=== PATIENT | male | born 1945 | race Caucasian/White ===

== ENCOUNTER 2017-01-03 10:45 | Emergency (ER) | payer OTHER, MEDICARE ==
[2017-01-03 11:08] VITALS: RESP 18
[2017-01-03] MEDS ORDERED: HYDROmorphone 1 MG/ML 1 ML SYRINGE IVP STA ×3 (11:10→15:12)
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
[2017-01-03] MEDS ORDERED: ceFAZolin 1,000 MG in DEXTROSE/WATER 1 50ML.BAG IVPB STA (11:49)
[2017-01-03 11:52] LABS: Basophils # (A) 0.1 k/uL (0-0.2); Basophils % (A) 1 %; CHCM 33.5; Eosinophils # (A) 0.3 k/uL (0-0.7); Eosinophils % (A) 4 %; HCT 44.5 % (39.0-53.0); HDW 2.83; HGB 15.3 gm/dL (13.0-17.5); Luc # (Auto) 0.11; Luc % (Auto) 1; Lymphocytes # (A) 1.7 k/uL (1.0-4.8); Lymphocytes % (A) 18 %; MCH 30.9 pg (25.0-35.0); MCHC 34.3 g/dL (31.0-37.0); MCV 89.9 fL (80.0-100.0); Mean Platelet Volume 7.4; Monocytes # (A) 0.4 k/uL (0-1.0); Monocytes % (A) 4 %; Neutrophils # (A) 6.6 k/uL (1.3-7.7); Neutrophils % (A) 72 %; RBC 4.95 m/uL (4.30-5.90); RDW 13.5 % (11.5-15.5); WBC 9.2 k/uL (3.8-10.6); WBC (Perox) 9.28
[2017-01-03 12:01] LABS: INR 1.9 (<1.1); Partial Thromboplastin Time 24.1 sec (22.0-30.0); Prothrombin Time 18.7 sec (9.0-12.0)
[2017-01-03 12:02] LABS: ALT 26 U/L (21-72); AST 26 U/L (17-59); Alkaline Phosphatase 34 U/L (38-126); Anion Gap 8 mmol/L; Blood Urea Nitrogen 21 mg/dL (9-20); Calcium 8.9 mg/dL (8.4-10.2); Carbon Dioxide 22 mmol/L (22-30); Chloride 108 mmol/L (98-107); Glucose 164 mg/dL (74-99); Non-African American GFR(MDRD) >60 (>60 ml/min/1.73 sqM); Potassium 4.8 mmol/L (3.5-5.1); Sodium 138 mmol/L (137-145); Total Bilirubin 0.8 mg/dL (0.2-1.3); Total Protein 6.8 g/dL (6.3-8.2)
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
[2017-01-03] MEDS ORDERED: PHYTONADIONE 2 MG in SODIUM CHLORIDE 0.9% 50 ML IVPB STA (12:57)
--- NOTE | 2017-01-03 13:00 | XR ---
EXAMINATION TYPE: XR ankle limited LT DATE OF EXAM: 01/03/2017 COMPARISON: NONE HISTORY: Pain FINDINGS: Two views of the ankle demonstrate the ankle mortise to be narrowed particularly posteriorly on the l ateral view likely post arthritic. Soft tissue ossification and vascular calcifications are seen. Shabbir caneal spur noted. IMPRESSION: 1. No definite acute fracture if symptoms persist follow-up exam 10-14 days. 2. Marked narrowing of the posterior margin of the ankle mortise on the lateral view likely post arth ritic.
--- NOTE | 2017-01-03 13:01 | XR ---
EXAMINATION TYPE: XR tibia fibula LT DATE OF EXAM: 01/03/2017 COMPARISON: NONE HISTORY: Pain TECHNIQUE: Two views are submitted. FINDINGS: The osseous structures are intact. Postsurgical change involving the knee. IMPRESSION: 1. No acute osseous abnormality.
--- NOTE | 2017-01-03 13:03 | XR ---
EXAMINATION TYPE: XR knee limited RT DATE OF EXAM: 01/03/2017 COMPARISON: NONE HISTORY: Pain TECHNIQUE: One view is submitted. FINDINGS: Comminuted displaced fracture of the distal femur noted. Only one view submitted therefore assessment for articular extension limited. Marked arthropathy of the knee joint suspected. IMPRESSION: 1. Limited exam demonstrates a displaced comminuted fracture of the distal femur. Due to the single v iew submitted articular extension is limited for assessment.
--- NOTE | 2017-01-03 13:04 | XR ---
EXAMINATION TYPE: XR femur RT DATE OF EXAM: 01/03/2017 CLINICAL HISTORY: Pain TECHNIQUE: Two views of the right femur are obtained. COMPARISON: None FINDINGS: There is comminuted displaced fracture of the distal femur. Assessment articular extension is limited but not excluded. IMPRESSION: 1. Comminuted displaced fracture distal femur. Articular extension not excluded.
--- NOTE | 2017-01-03 13:05 | XR ---
EXAMINATION TYPE: XR chest 1V portable DATE OF EXAM: 01/03/2017 COMPARISON: NONE HISTORY: Pain TECHNIQUE: Single frontal view of the chest is obtained. FINDINGS: There is no focal air space opacity, pleural effusion, or pneumothorax seen. The cardiac silhouette size is within normal limits. The osseous structures are intact. Mediastinum is somewhat prominent as is the heart. IMPRESSION: 1. Widening of the mediastinum may be related to technique. CT of the chest is suggested for confirma tion.
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
[2017-01-03] MEDS ORDERED: RX INFO: IV CONTRAST WAS GIVEN 1 EACH MISC MISCELLANE PRN (13:13)
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
[2017-01-03 15:24] VITALS: BP 146/77; PULSE 99; TEMP 99.4
== END 2017-01-03 15:40 | disposition other institution (70) ==
LOC: EC 10:45
DX: S72.491B Other fracture of lower end of right femur, initial encounter for open fracture type I or II (principal); S82.042A Displaced comminuted fracture of left patella, initial encounter for closed fracture; S81.011A Laceration without foreign body, right knee, initial encounter; S90.512A Abrasion, left ankle, initial encounter; V03.10XA Pedestrian on foot injured in collision with car, pick-up truck or van in traffic accident, initial encounter; D68.2 Hereditary deficiency of other clotting factors; E11.9 Type 2 diabetes mellitus without complications; E78.5 Hyperlipidemia, unspecified; M19.90 Unspecified osteoarthritis, unspecified site; Z79.01 Long term (current) use of anticoagulants; Z79.84 Long term (current) use of oral hypoglycemic drugs; Z79.899 Other long term (current) drug therapy; Z86.711 Personal history of pulmonary embolism; Z86.718 Personal history of other venous thrombosis and embolism; Z88.7 Allergy status to serum and vaccine
CPT/HCPCS: 36415; 86900; 86901; 80053; 85025; 85610; 85730; 86850; 71010; 72170; 73552; 73590; 73560; 73600; 72125; 70450; 75635; 29505; 99285; 12001; 96365; 96375; 96376; 96367; P9059; J3430; Q9967; J1170; J0690

== ENCOUNTER 2017-02-24 09:57 | Emergency (ER) | payer OTHER, MEDICARE ==
[2017-02-24] MEDS ORDERED: KETOROLAC 30 MG/ML 1 ML VIAL IM STA (10:18)
[2017-02-24] MEDS ORDERED: DIAZEPAM 5 MG/ML 2 ML SYRINGE IM ONE (10:18)
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
[2017-02-24 12:15] VITALS: BP 150/77; PULSE 81; RESP 18; TEMP 97.9
== END 2017-02-24 12:13 | disposition home or self-care (01) ==
LOC: EC 09:57
DX: M53.3 Sacrococcygeal disorders, not elsewhere classified (principal); M62.838 Other muscle spasm; M25.552 Pain in left hip; E78.5 Hyperlipidemia, unspecified; E11.9 Type 2 diabetes mellitus without complications; Z79.01 Long term (current) use of anticoagulants; Z79.84 Long term (current) use of oral hypoglycemic drugs; Z79.899 Other long term (current) drug therapy; Z88.7 Allergy status to serum and vaccine; Z86.711 Personal history of pulmonary embolism
CPT/HCPCS: 99283; 96372 ×2; J3360; J1885

== ENCOUNTER → 2017-10-15 | Outpatient (CLI) | payer MEDICARE ==
[2017-10-15 07:23] LABS: Basophils # (A) 0.1 k/uL (0-0.2); Basophils % (A) 1 %; Eosinophils # (A) 0.4 k/uL (0-0.7); Eosinophils % (A) 5 %; HCT 49.7 % (39.0-53.0); Lymphocytes # (A) 2.1 k/uL (1.0-4.8); Lymphocytes % (A) 26 %; MCH 28.6 pg (25.0-35.0); MCHC 32.2 g/dL (31.0-37.0); MCV 88.8 fL (80.0-100.0); Mean Platelet Volume 7.2; Monocytes # (A) 0.5 k/uL (0-1.0); Monocytes % (A) 6 %; Neutrophils % (A) 62 %; Platelet Count 207 k/uL (150-450); RBC 5.59 m/uL (4.30-5.90); RDW 14.2 % (11.5-15.5); WBC 8.1 k/uL (3.8-10.6)
[2017-10-15 07:44] LABS: Calcium 9.8 mg/dL (8.4-10.2); Total Bilirubin 0.5 mg/dL (0.2-1.3); Total Protein 7.2 g/dL (6.3-8.2)
== END | disposition home or self-care (01) ==
LOC: LABWHC1 06:40
PROVIDERS: ATTEND Internal Medicine
DX: I74.9 Embolism and thrombosis of unspecified artery (principal); E78.1 Pure hyperglyceridemia; N18.6 End stage renal disease; Z79.899 Other long term (current) drug therapy
CPT/HCPCS: 36415; 80053; 80061; 85025

== ENCOUNTER → 2018-01-08 | Outpatient (CLI) | payer MEDICARE ==
[2018-01-08 07:29] LABS: Basophils # (A) 0.1 k/uL (0-0.2); Basophils % (A) 1 %; Eosinophils # (A) 0.3 k/uL (0-0.7); Eosinophils % (A) 4 %; HCT 49.4 % (39.0-53.0); HGB 15.3 gm/dL (13.0-17.5); Lymphocytes # (A) 2.3 k/uL (1.0-4.8); Lymphocytes % (A) 36 %; MCH 28.3 pg (25.0-35.0); MCHC 30.9 g/dL (31.0-37.0); MCV 91.5 fL (80.0-100.0); Mean Platelet Volume 6.8; Monocytes # (A) 0.5 k/uL (0-1.0); Monocytes % (A) 7 %; Neutrophils # (A) 3.3 k/uL (1.3-7.7); Neutrophils % (A) 50 %; Platelet Count 193 k/uL (150-450); RDW 13.7 % (11.5-15.5); WBC 6.5 k/uL (3.8-10.6)
[2018-01-08 07:33] LABS: INR 3.7 (<1.2); Prothrombin Time 33.1 sec (9.0-12.0)
[2018-01-08 07:59] LABS: Albumin 4.1 g/dL (3.5-5.0); Calcium 9.7 mg/dL (8.4-10.2); Total Bilirubin 0.5 mg/dL (0.2-1.3); Total Protein 7.1 g/dL (6.3-8.2)
== END | disposition home or self-care (01) ==
LOC: LABWHC1 06:32
PROVIDERS: ATTEND Internal Medicine
DX: N18.9 Chronic kidney disease, unspecified (principal); Z86.718 Personal history of other venous thrombosis and embolism
CPT/HCPCS: 36415; 80053; 85025; 85610

== ENCOUNTER → 2018-09-09 | Outpatient (CLI) | payer MEDICARE ==
--- NOTE | 2018-09-09 13:35 | ECHOF ---
Referral Reason:R06.02 shortness of Breath MEASUREMENTS -------- HEIGHT: 177.8 cm WEIGHT: 131.5 kg BP: RVIDd: 2.9 cm (< 3.3) IVSd: 1.1 cm (0.6 - 1.1) LVIDd: 5.3 cm (3.9 - 5.3) LVPWd: 1.1 cm (0.6 - 1.1) IVSs: 1.3 cm LVIDs: 2.8 cm LVPWs: 1.2 cm LAESV Index (A-L): 19.64 ml/m Ao Diam: 4.1 cm (2.0 - 3.7) AV Cusp: 1.9 cm (1.5 - 2.6) MV E Sree: 0.76 m/s MV DecT: 268 ms MV A Sree: 0.80 m/s MV E/A Ratio: 0.94 RAP: 5.00 mmHg RVSP: 9.43 mmHg FINDINGS -------- Sinus rhythm. This was a technically difficult study with suboptimal views. The left ventricular size is normal. There is borderline concentric left ventricular hypertrophy. Overall left ventricular systolic function is normal with, an EF between 55 - 60 %. The right ventricle is normal in size. Normal LA size by volume 22+/-6 ml/m2. The right atrial size is normal. 3 ml of Lumason was utilized for enhancement of images. There is mild aortic valve sclerosis. There is no evidence of aortic regurgitation. There is no e vidence of aortic stenosis. Mild mitral annular calcification present. Mild mitral regurgitation is present. Trace tricuspid regurgitation present. Right ventricular systolic pressure is normal at < 35 mmHg. The right ventricular systolic pressure, as measured by Doppler, is 9.43mmHg. The pulmonic valve was not well visualized. The aortic root is mildy dilated, up to 4.0 cm. Normal inferior vena cava with normal inspiratory collapse consistent with estimated right atrial pre ssure of 5 mmHg. There is a trivial pericardial effusion present. CONCLUSIONS -------- 1. Sinus rhythm. 2. This was a technically difficult study with suboptimal views. 3. The left ventricular size is normal. 4. There is borderline concentric left ventricular hypertrophy. 5. Overall left ventricular systolic function is normal with, an EF between 55 - 60 %. 6. Normal LA size by volume 22+/-6 ml/m2. 7. 3 ml of Lumason was utilized for enhancement of images. 8. There is mild aortic valve sclerosis. 9. Mild mitral annular calcification present. 10. Mild mitral regurgitation is present. 11. Trace tricuspid regurgitation present. 12. Right ventricular systolic pressure is normal at < 35 mmHg. 13. The pulmonic valve was not well visualized. 14. The aortic root is mildy dilated, up to 4.0 cm. 15. There is a trivial pericardial effusion present. [facility] TECHNICIAN: Boris Tavares RDCS
== END ==
LOC: RADECHMAIN 07:48
PROVIDERS: ATTEND Internal Medicine
DX: I34.0 Nonrheumatic mitral (valve) insufficiency (principal); I35.8 Other nonrheumatic aortic valve disorders
CPT/HCPCS: C8929; Q9950; 93306

== ENCOUNTER → 2019-02-02 | Outpatient (CLI) | payer MEDICARE ==
[2019-02-02 10:47] LABS: Basophils # (A) 0.1 k/uL (0-0.2); Basophils % (A) 0 %; Eosinophils # (A) 0.1 k/uL (0-0.7); Eosinophils % (A) 0 %; HCT 34.2 % (39.0-53.0); HGB 10.9 gm/dL (13.0-17.5); Hypochromasia Slight; Lymphocytes # (A) 1.3 k/uL (1.0-4.8); Lymphocytes % (A) 8 %; MCH 28.8 pg (25.0-35.0); MCHC 31.7 g/dL (31.0-37.0); MCV 90.6 fL (80.0-100.0); Mean Platelet Volume 7.1; Monocytes # (A) 0.9 k/uL (0-1.0); Monocytes % (A) 6 %; Neutrophils # (A) 13.3 k/uL (1.3-7.7); Neutrophils % (A) 84 %; Platelet Count 479 k/uL (150-450); RBC 3.77 m/uL (4.30-5.90); WBC 15.7 k/uL (3.8-10.6)
[2019-02-02 11:38] LABS: Erythrocyte Sedimentation Rate 63 mm/hr (0-15)
[2019-02-02 16:08] LABS: African American GFR (CKD) 85.6 (60.0-200.0); Anion Gap 9.5 mmol/L (4.00-12.00); C Reactive Protein 11.9 mg/dL (0.0-0.8); Calcium 8.3 mg/dL (8.7-10.3); Carbon Dioxide 23.5 mmol/L (21.6-31.8); Potassium 4.5 mmol/L (3.5-5.5)
== END | disposition home or self-care (01) ==
LOC: LABWHC1 09:56
PROVIDERS: ATTEND Internal Medicine
DX: R50.9 Fever, unspecified (principal); M54.9 Dorsalgia, unspecified; Z96.659 Presence of unspecified artificial knee joint
CPT/HCPCS: 36415; 80048; 85025; 85652; 86140; 87040

== ENCOUNTER 2019-02-21 20:41 | Emergency (ER) | payer MEDICARE ==
[2019-02-21] MEDS ORDERED: ACETAMINOPHEN TAB 325 MG TAB PO STA (21:15)
--- NOTE | 2019-02-21 21:31 | ED ---
SOB HPI - General Chief Complaint: Shortness of Breath Stated Complaint: Cough, SOB Time Seen by Provider: 02/21/19 21:14 Source: patient Mode of arrival: wheelchair Limitations: no limitations - History of Present Illness Initial Comments: This patient is 73-year-old man who presents to be evaluated for shortness of breath and a cough productive of some whitish sputum that is been going on since Friday. Patient states that when things were not improving he decided he should be evaluated here. The patient had initially attributed this to "picking up a virus at physical therapy" he is taking physical therapy after having an orthopedic surgery on his right leg. He states that he had some hardware removed due to broken screws. The patient is denying significant leg pain stating that his leg is feeling much better following surgery area he denies any increase in leg swelling. He is not having chest pain. He has had history of a PE following a previous hernia surgery and states that this does not feel the same to him. He states he is maintaining his Coumadin. MD Complaint: shortness of breath, cough Onset/Timin -: days(s) Severity scale (1-10): 0 Improves With: nothing Worsens With: nothing Known History Of: other (Previous PE) Associated Symptoms: fever, cough Treatments Prior to Arrival: none - Related Data Home Oxygen Therapy: No Home Medications Medication Instructions Recorded Confirmed Fenofibrate Nanocrystallized 145 mg PO DAILY 04/13/14 02/21/19 [Tricor] Warfarin [Coumadin] 5 mg PO MOFR 04/13/14 02/21/19 Warfarin [Coumadin] 2.5 mg PO SUTUWETHSA 01/03/17 02/21/19 glipiZIDE XL [Glucotrol Xl] 5 mg PO DAILY 01/03/17 02/21/19 sitaGLIPtin PHOS/metFORMIN HCL 1 tab PO DAILY 01/03/17 02/21/19 [Janumet Xr 100-1,000 mg Tablet] Benzonatate [Tessalon Perles] 200 mg PO TID PRN 02/21/19 02/21/19 Calcium Carbonate/Vitamin D3 2 tab PO BID 02/21/19 02/21/19 [Calcium 600-Vit D3 500 Softgel] HYDROcodone/APAP 10-325MG [[place] 1 tab PO Q4H PRN 02/21/19 02/21/19 10-325] Previous Rx's Medication Instructions Recorded Ciprofloxacin HCl [Cipro] 500 mg PO Q12HR #14 tablet 02/22/19 Allergies Allergy/AdvReac Type Severity Reaction Status Date / Time Tetanus Vaccines and Toxoid Allergy Unknown Verified 02/21/19 21:11 [Tetanus Vaccines & Toxoid] Childhood Review of Systems ROS Statement: Those systems with pertinent positive or pertinent negative responses have been documented in the HPI. ROS Other: All systems not noted in ROS Statement are negative. Constitutional: Reports: fever. Denies: chills, weakness Respiratory: Reports: cough, dyspnea. 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 DRY PATCHES AT TIMES ON SCALP. DEG.JOINT DISEASE-HANDS,KNEES,BACK History of Any Multi-Drug Resistant Organisms: None Reported Past Surgical History: Hernia Repair, Orthopedic Surgery Additional Past Surgical History / Comment(s): ORCHIECTOMY & RT ING HERNIA REPAIR 2000-PT LATER DEVELOPED PE 02/2001. ARTHROSCOPIC HAZEL. KNEES, right femur january 04 2017 Past Anesthesia/Blood Transfusion Reactions: No Reported Reaction Past Psychological History: No Psychological Hx Reported Smoking Status: Never smoker Past Alcohol Use History: Daily, Occasional Past Drug Use History: None Reported - Past Family History Brother(s) Family Medical History: Cancer Additional Family Medical History / Comment(s): ESOPHAGUS CA General Exam Limitations: no limitations General appearance: alert, in no apparent distress Head exam: Present: atraumatic, normocephalic Eye exam: Present: normal appearance. Absent: scleral icterus, conjunctival injection ENT exam: Present: normal oropharynx Respiratory exam: Present: normal lung sounds bilaterally. Absent: respiratory distress, wheezes, rales, rhonchi, stridor Cardiovascular Exam: Present: normal rhythm, tachycardia (Rate 108 at my exam), normal heart sounds. Absent: systolic murmur, diastolic murmur, rubs, gallop GI/Abdominal exam: Present: soft, hernia (Small umbilical hernia which is not tender). Absent: tenderness, guarding, rebound, rigid, mass Extremities exam: Present: normal inspection, normal capillary refill, other (The patient's right leg surgical site appears well-healed, clean dry and intact. There is no erythema or warmth. No tenderness.). Absent: pedal edema, calf tenderness Back exam: Present: normal inspection. Absent: CVA tenderness (R), CVA t enderness (L) Neurological exam: Present: alert Skin exam: Present: warm, dry, intact, normal color. Absent: rash Course Vital Signs 02/21/19 02/21/19 02/22/19 20:46 23:24 00:50 Temperature 102.7 F H 98.8 F 97.9 F Pulse Rate 109 H 105 H 92 Respiratory 24 20 18 Rate Blood Pressure 146/69 139/56 129/64 O2 Sat by Pulse 95 96 98 Oximetry 02/22/19 01:55 Temperature 97.9 F Pulse Rate 92 Respiratory 18 Rate Blood Pressure 130/68 O2 Sat by Pulse 100 Oximetry Medical Decision Making - Medical Decision Making Patient is 73-year-old man presenting for cough and some mild dyspnea. He is found to have fever. Started on antibiotics forward appears to be urinary tract infection and suspect prostatitis. Discussed admission with the hospitalist on- call, and when I went and discussed this with patient, he states he is feeling world better. I didn't take the nasal cannula oxygen away and he was still fee ling well with no dyspnea. He wants to go home and try outpatient course medication. I did discuss close follow-up as well as return parameters. - Lab Data Result diagrams: 02/21/19 21:11 02/21/19 21:11 Lab Results 02/21/19 02/21/19 02/21/19 Range/Units 21:11 21:11 21:11 WBC 13.3 H (3.8-10.6) k/uL RBC 4.12 L (4.30-5.90) m/uL Hgb 11.5 L (13.0-17.5) gm/dL Hct 36.5 L (39.0-53.0) % MCV 88.6 (80.0-100.0) fL MCH 27.9 (25.0-35.0) pg MCHC 31.6 (31.0-37.0) g/dL RDW 13.9 (11.5-15.5) % Plt Count 363 (150-450) k/uL Neutrophils % 84 % Lymphocytes % 9 % Monocytes % 4 % Eosinophils % 1 % Basophils % 1 % Neutrophils # 11.3 H (1.3-7.7) k/uL Lymphocytes # 1.2 (1.0-4.8) k/uL Monocytes # 0.6 (0-1.0) k/uL Eosinophils # 0.2 (0-0.7) k/uL Basophils # 0.1 (0-0.2) k/uL Hypochromasia Slight PT (9.0-12.0) sec INR (<1.2) APTT (22.0-30.0) sec D-Dimer (<0.60) mg/L FEU Sodium 135 L (137-145) mmol/L Potassium 4.5 (3.5-5.1) mmol/L Chloride 98 (98-107) mmol/L Carbon Dioxide 25 (22-30) mmol/L Anion Gap 12 mmol/L BUN 19 (9-20) mg/dL Creatinine 0.96 (0.66-1.25) mg/dL Est GFR (CKD-EPI)AfAm >90 (>60 ml/min/1.73 sqM) Est GFR (CKD-EPI)NonAf 78 (>60 ml/min/1.73 sqM) Glucose 272 H (74-99) mg/dL Plasma Lactic Acid Ab 2.0 (0.7-2.0) mmol/L Calcium 8.6 (8.4-10.2) mg/dL Total Bilirubin 0.4 (0.2-1.3) mg/dL AST 62 H (17-59) U/L ALT 67 (21-72) U/L Alkaline Phosphatase 84 (38-126) U/L Troponin I (0.000-0.034) ng/mL Total Protein 6.2 L (6.3-8.2) g/dL Albumin 2.9 L (3.5-5.0) g/dL Urine Color Urine Appearance (Clear) Urine pH (5.0-8.0) Ur Specific [place] (1.001-1.035) Urine Protein (Negative) Urine Glucose (UA) (Negative) Urine Ketones (Negative) Urine Blood (Negative) Urine Nitrite (Negative) Urine Bilirubin (Negative) Urine Urobilinogen (<2.0) mg/dL Ur Leukocyte Esterase (Negative) Urine RBC (0-5) /hpf Urine WBC (0-5) /hpf Ur Squamous Epith Cells (0-4) /hpf Urine Bacteria (None) /hpf Urine Mucus (None) /hpf 02/21/19 02/21/19 02/21/19 Range/Units 21:11 21:11 22:45 WBC (3.8-10.6) k/uL RBC (4.30-5.90) m/uL Hgb (13.0-17.5) gm/dL Hct (39.0-53.0) % MCV (80.0-100.0) fL MCH (25.0-35.0) pg MCHC (31.0-37.0) g/dL RDW (11.5-15.5) % Plt Count (150-450) k/uL Neutrophils % % Lymphocytes % % Monocytes % % Eosinophils % % Basophils % % Neutrophils # (1.3-7.7) k/uL Lymphocytes # (1.0-4.8) k/uL Monocytes # (0-1.0) k/uL Eosinophils # (0-0.7) k/uL Basophils # (0-0.2) k/uL Hypochromasia PT 30.1 H (9.0-12.0) sec INR 3.1 H (<1.2) APTT 41.5 H (22.0-30.0) sec D-Dimer 3.07 H (<0.60) mg/L FEU Sodium (137-145) mmol/L Potassium (3.5-5.1) mmol/L Chloride (98-107) mmol/L Carbon Dioxide (22-30) mmol/L Anion Gap mmol/L BUN (9-20) mg/dL Creatinine (0.66-1.25) mg/dL Est GFR (CKD-EPI)AfAm (>60 ml/min/1.73 sqM) Est GFR (CKD-EPI)NonAf (>60 ml/min/1.73 sqM) Glucose (74-99) mg/dL Plasma Lactic Acid Ab (0.7-2.0) mmol/L Calcium (8.4-10.2) mg/dL Total Bilirubin (0.2-1.3) mg/dL AST (17-59) U/L ALT (21-72) U/L Alkaline Phosphatase (38-126) U/L Troponin I <0.012 (0.000-0.034) ng/mL Total Protein (6.3-8.2) g/dL Albumin (3.5-5.0) g/dL Urine Color Yellow Urine Appearance Cloudy (Clear) Urine pH 5.5 (5.0-8.0) Ur Specific [place] 1.020 (1.001-1.035) Urine Protein 1+ H (Negative) Urine Glucose (UA) Trace H (Negative) Urine Ketones Negative (Negative) Urine Blood Large H (Negative) Urine Nitrite Negative (Negative) Urine Bilirubin Negative (Negative) Urine Urobilinogen 2.0 (<2.0) mg/dL Ur Leukocyte Esterase Moderate H (Negative) Urine RBC >182 H (0-5) /hpf Urine WBC 45 H (0-5) /hpf Ur Squamous Epith Cells <1 (0-4) /hpf Urine Bacteria Rare H (None) /hpf Urine Mucus Rare H (None) /hpf - EKG Data -: EKG Interpreted by [facility] EKG shows normal: sinus rhythm, axis (Normal), intervals (Normal), QRS complexes (Normal), ST-T waves (Normal) Rate: tachycardia (Rate 109 bpm) Interpretation: normal EKG Disposition Clinical Impression: Urinary tract infection Disposition: HOME SELF-CARE Condition: Fair Instructions (If sedation given, give patient instructions): Urinary Tract Infection in Men (ED) Prescriptions: Ciprofloxacin HCl [Cipro] 500 mg PO Q12HR #14 tablet Is patient prescribed a controlled substance at d/c from ED?: No Referrals: Tamara Ho MD [Primary Care Provider] - 1-2 days
[2019-02-21 21:58] LABS: Basophils # (A) 0.1 k/uL (0-0.2); Basophils % (A) 1 %; Eosinophils # (A) 0.2 k/uL (0-0.7); Eosinophils % (A) 1 %; HCT 36.5 % (39.0-53.0); HGB 11.5 gm/dL (13.0-17.5); Hypochromasia Slight; Lymphocytes # (A) 1.2 k/uL (1.0-4.8); Lymphocytes % (A) 9 %; MCH 27.9 pg (25.0-35.0); MCHC 31.6 g/dL (31.0-37.0); MCV 88.6 fL (80.0-100.0); Mean Platelet Volume 7.3; Monocytes # (A) 0.6 k/uL (0-1.0); Monocytes % (A) 4 %; Neutrophils # (A) 11.3 k/uL (1.3-7.7); Neutrophils % (A) 84 %; Platelet Count 363 k/uL (150-450); RBC 4.12 m/uL (4.30-5.90); RDW 13.9 % (11.5-15.5); WBC 13.3 k/uL (3.8-10.6)
--- NOTE | 2019-02-21 22:00 | XR ---
EXAMINATION TYPE: XR chest 2V DATE OF EXAM: 02/21/2019 COMPARISON: 02/02/2019 HISTORY: Cough TECHNIQUE: Frontal and lateral views of the chest are obtained. FINDINGS: Heart and mediastinum are normal. Lungs are clear. Diaphragm is normal. Bony thorax appear s normal. There is minor spurring in the thoracic spine. IMPRESSION: No active cardiopulmonary disease. Normal heart. No change.
[2019-02-21 22:08] LABS: ALT 67 U/L (21-72); AST 62 U/L (17-59); African American GFR (CKD) >90 (>60 ml/min/1.73 sqM); Albumin 2.9 g/dL (3.5-5.0); Alkaline Phosphatase 84 U/L (38-126); Anion Gap 12 mmol/L; Blood Urea Nitrogen 19 mg/dL (9-20); Calcium 8.6 mg/dL (8.4-10.2); Carbon Dioxide 25 mmol/L (22-30); Chloride 98 mmol/L (98-107); Glucose 272 mg/dL (74-99); Potassium 4.5 mmol/L (3.5-5.1); Sodium 135 mmol/L (137-145); Total Bilirubin 0.4 mg/dL (0.2-1.3); Total Protein 6.2 g/dL (6.3-8.2)
[2019-02-21 22:15] LABS: INR 3.1 (<1.2); Partial Thromboplastin Time 41.5 sec (22.0-30.0); Prothrombin Time 30.1 sec (9.0-12.0)
[2019-02-21 22:17] LABS: D-Dimer 3.07 mg/L FEU (<0.60)
[2019-02-21 23:18] LABS: Appearance,Urine Cloudy (Clear); Bacteria,Urine Rare /hpf; Bilirubin,Urine Negative (Negative); Blood,Urine Large (Negative); Color,Urine Yellow; Glucose,Urine (UA) Trace (Negative); Ketones,Urine Negative (Negative); Leukocyte Esterase,Urine Moderate (Negative); Mucus,Urine Rare /hpf; Nitrite,Urine Negative (Negative); PH, Urine 5.5 (5.0-8.0); Protein,Urine 1+ (Negative); RBC,Urine >182 /hpf (0-5); Squamous Epithelial Cell,Urine <1 /hpf (0-4); WBC,Urine 45 /hpf (0-5)
[2019-02-21] MEDS ORDERED: LEVOFLOXACIN 750MG-D5W PMX 750 MG in DEXTROSE/WATER 1 150ML.BAG IVPB STA (23:25)
--- NOTE | 2019-02-21 23:31 | CT ---
EXAM: CT Angiography Chest With Intravenous Contrast CLINICAL HISTORY: ITS.REASON CT Reason: cough TECHNIQUE: Axial computed tomographic angiography images of the chest with intravenous contrast using pulmonary embolism protocol. CTDI is 19 mGy and DLP is 721 mGy-cm. This CT exam was performed using one or more of the following dose reduction techniques: automated exposure control, adjustment of the mA and/or kV according to patient size, and/or use of iterative reconstruction technique. MIP reconstructed images were created and reviewed. COMPARISON: 01/03/17 CT chest FINDINGS: Pulmonary arteries: No filling defects. Aorta: No thoracic aortic aneurysm. Lungs: No mass. No consolidation. Pleural space: No pneumothorax. No significant effusion. Heart: No cardiomegaly. No pericardial effusion. Bones/joints: No acute fracture or dislocation. Evidence of DISH. Soft tissues: Subcentimeter calcified lesion in the right thyroid gland. Multiple stones in the left kidney. Multiple bilateral renal cysts. Lymph nodes: No enlarged lymph nodes. IMPRESSION: No acute intrathoracic findings. Multiple stones in the left kidney. Subcentimeter calcified lesion in the right thyroid gland.
[2019-02-22 01:29] VITALS: PULSE 92; RESP 18; TEMP 97.9
[2019-02-22 01:57] VITALS: BP 130/68
== END 2019-02-22 01:58 | disposition home or self-care (01) ==
LOC: EC 20:41
DX: N39.0 Urinary tract infection, site not specified (principal); E11.9 Type 2 diabetes mellitus without complications; E78.5 Hyperlipidemia, unspecified; Z79.01 Long term (current) use of anticoagulants; Z79.84 Long term (current) use of oral hypoglycemic drugs; Z79.899 Other long term (current) drug therapy; Z88.7 Allergy status to serum and vaccine; Z86.711 Personal history of pulmonary embolism
CPT/HCPCS: 36415; 93005; 85379; 80053; 83605; 84484; 85025; 85610; 85730; 81001; 87040; 87086; 71046; 71275; 99285; 96365; 96366; J1956; Q9967

== ENCOUNTER 2019-04-13 15:16 | Inpatient (IN) | payer MEDICARE ==
[2019-04-13 16:28] LABS: Anisocytosis Slight; Basophils # (A) 0.1 k/uL (0-0.2); Basophils % (A) 0 %; Eosinophils # (A) 0.1 k/uL (0-0.7); Eosinophils % (A) 1 %; HCT 36.6 % (39.0-53.0); HGB 11.5 gm/dL (13.0-17.5); Hypochromasia Marked; Lymphocytes # (A) 1.7 k/uL (1.0-4.8); Lymphocytes % (A) 10 %; MCH 26.6 pg (25.0-35.0); MCHC 31.4 g/dL (31.0-37.0); MCV 84.7 fL (80.0-100.0); Mean Platelet Volume 6.1; Monocytes # (A) 0.9 k/uL (0-1.0); Monocytes % (A) 5 %; Neutrophils # (A) 13.8 k/uL (1.3-7.7); Neutrophils % (A) 83 %; Platelet Count 358 k/uL (150-450); RBC 4.33 m/uL (4.30-5.90); RDW 16.5 % (11.5-15.5); WBC 16.7 k/uL (3.8-10.6)
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
[2019-04-13 16:39] LABS: ALT 43 U/L (21-72); AST 36 U/L (17-59); African American GFR (CKD) >90 (>60 ml/min/1.73 sqM); Albumin 2.8 g/dL (3.5-5.0); Alkaline Phosphatase 68 U/L (38-126); Anion Gap 10 mmol/L; Blood Urea Nitrogen 19 mg/dL (9-20); Calcium 9.1 mg/dL (8.4-10.2); Carbon Dioxide 23 mmol/L (22-30); Chloride 103 mmol/L (98-107); Glucose 216 mg/dL (74-99); Magnesium 1.5 mg/dL (1.6-2.3); Potassium 4.2 mmol/L (3.5-5.1); Sodium 136 mmol/L (137-145); Total Bilirubin 0.8 mg/dL (0.2-1.3); Total Protein 6.4 g/dL (6.3-8.2)
[2019-04-13 16:47] LABS: INR 1.6 (<1.2); Partial Thromboplastin Time 30.5 sec (22.0-30.0); Prothrombin Time 16.2 sec (9.0-12.0)
[2019-04-13 17:12] LABS: D-Dimer 1.16 mg/L FEU (<0.60)
--- NOTE | 2019-04-13 17:25 | XR ---
EXAMINATION: XR chest 2V DATE AND TIME: 04/13/2019 4:54 PM CLINICAL INDICATION: PHH; difficulty breathing TECHNIQUE: Departmental protocol COMPARISON: 02/21/2019 FINDINGS: The overlying soft tissues are prominent. The lungs appear clear. The pleural spaces are negative. The cardiac silhouette is not enlarged. The skeletal structures and soft tissues are negative for acute findings. IMPRESSION: NO ACUTE PROCESS.
[2019-04-13] MEDS ORDERED: IPRATROPIUM-ALBUTEROL 3 ML NEB INHALATION STA (17:38)
[2019-04-13] MEDS: MAGNESIUM SULFATE-D5W PMX 1 GM in DEXTROSE/WATER 1 100ML.BAG IVPB SCH ×2 (18:14→19:27)
--- NOTE | 2019-04-13 19:57 | CT ---
EXAMINATION TYPE: CT chest angio for PE DATE OF EXAM: 04/13/2019 COMPARISON: Prior chest CT 02/21/2019 HISTORY: Persistent cough. Dyspnea CT DLP: 812.6 mGycm Automated exposure control for dose reduction was used. CONTRAST: CT Chest for pulmonary embolism performed with with IV Contrast, patient injected with 100 mL of Isov ue 370. Three-dimensional reconstructions performed on an alternate workstation. FINDINGS: LUNGS: The lungs are grossly clear, there is no concerning parenchymal mass or nodule identified. T here is no pleural effusion or pneumothorax seen. The tracheobronchial tree is patent. MEDIASTINUM: There is satisfactory enhancement of the central pulmonary artery and its branches, ther e is no CT evidence for pulmonary embolism. Segmental arteries are not optimally enhanced however the re is no evident embolus. There are no greater than 1 cm hilar or mediastinal lymph nodes. Extensiv e coronary artery calcification is again noted. No pericardial effusion is seen. Prominence of pulm onary artery again seen. There are prominent epicardial fat pads. AORTA: Aneurysmal dilation of the ascending aorta measuring 2.9 cm. OTHER: Multiple bilateral cortical cysts are again noted within the kidneys with some perinephric in flammatory changes suspected, there are nonobstructive calculi present within the left kidney. There are changes of gynecomastia. Increased attenuation noted at what is likely the dependent portion of t he gallbladder, gallbladder is contracted, consider chronic cholecystitis IMPRESSION: No evident pulmonary embolism. Coronary artery disease, correlate for possible pulmonary artery hyper tension. Indeterminate inflammatory changes suspected in the retroperitoneum is again noted. Nonobstr uctive renal calculi, correlate for possible urinary tract infection. Probable cholelithiasis, possib le chronic cholecystitis.
[2019-04-13] MEDS ORDERED: BENZONATATE 100 MG CAP PO PRN (21:48)
[2019-04-13] MEDS: HYDROcodone/APAP 10-325MG 1 EACH TAB PO PRN (22:02)
[2019-04-14 07:18] LABS: Glucose,Whole Blood 224 mg/dL (75-99)
[2019-04-14] MEDS: IPRATROPIUM-ALBUTEROL 3 ML NEB INHALATION SCH ×4 (07:51→20:22)
[2019-04-14] MEDS: metFORMIN 500 MG TAB PO SCH (08:22)
[2019-04-14] MEDS: LINAGLIPTIN 5 MG TABLET PO SCH (08:23)
[2019-04-14 10:16] LABS: Amorphous Sediment,Urine Few /hpf; Appearance,Urine Cloudy (Clear); Bacteria,Urine Occasional /hpf; Bilirubin,Urine Negative (Negative); Blood,Urine Small (Negative); Color,Urine Yellow; Glucose,Urine (UA) Negative (Negative); Ketones,Urine Negative (Negative); Leukocyte Esterase,Urine Large (Negative); Mucus,Urine Rare /hpf; Nitrite,Urine Positive (Negative); PH, Urine 5.5 (5.0-8.0); Protein,Urine Trace (Negative); RBC,Urine 11 /hpf (0-5); Specific Gravity,Urine 1.037 (1.001-1.035); Urobilinogen,Urine <2.0 mg/dL (<2.0)
--- NOTE | 2019-04-14 10:57 | P.CRDCN ---
History of Present Illness Consult date: 04/14/19 Requesting physician: Andreas Peace Consult reason: shortness of breath Chief complaint: Shortness of breath and cough History of present illness: This is a 73-year-old gentleman with history of diabetes, prior blood clot in the lung several years ago for which he takes Coumadin, he follows with Dr. Vic holbrook as his primary care physician. Denies any hypertension, nonsmoker, he presents to the hospital with symptoms of persistent cough with associated shortness of breath. Patient states that he has a hockey cough, that worsens when he lies flat, occasionally he coughed something up which is clear in color, but usually it is a dry cough. He gets quite short of breath when he lies flat as well. He had been started on an antibiotic as an outpatient with no relief of symptoms. Came to the hospital for further evaluation and treatment. Chest x-ray on presentation here did not reveal any acute process. CTA of the chest was performed which did not reveal any evidence of a pulmonary embolism. Possible pulmonary hypertension noted. EKG showed a sinus tachycardia with PACs and occasional PVC. Nonspecific ST-T wave changes. Blood pressure on arrival here 119/60 with a heart rate of 107, 92% on room air. Blood pressure this morning 140/60, heart rate 120, 94% on room air. White blood cell count 16.7, hemoglobin 11.5, platelet count 358. D-dimer 1.16. Sodium 136, potassium 4.2, BUN 19 and creatinine 0.7. Magnesium level I.5. Troponins are negative 2. BNP level 3400. Positive UTI. At the time of my examination this morning, patient continues to have a persistent hockey cough, continues to feel short of breath lying in bed. 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 DRY PATCHES AT TIMES ON SCALP. DEG.JOINT DISEASE-HANDS,KNEES,BACK History of Any Multi-Drug Resistant Organisms: None Reported Past Surgical History: Hernia Repair, Orthopedic Surgery Additional Past Surgical History / Comment(s): ORCHIECTOMY & RT ING HERNIA REPAIR 2000-PT LATER DEVELOPED PE 02/2001. ARTHROSCOPIC HAZEL. KNEES, right femur january 04 2017 Past Anesthesia/Blood Transfusion Reactions: No Reported Reaction Past Psychological History: No Psychological Hx Reported Smoking Status: Never smoker Past Alcohol Use History: Daily, Occasional Past Drug Use History: None Reported - Past Family History Brother(s) Family Medical History: Cancer Additional Family Medical History / Comment(s): ESOPHAGUS CA Medications and Allergies Home Medications Medication Instructions Recorded Confirmed Type Warfarin [Coumadin] 2.5 mg PO HS 01/03/17 04/13/19 History glipiZIDE XL [Glucotrol Xl] 5 mg PO DAILY 01/03/17 04/13/19 History sitaGLIPtin PHOS/metFORMIN HCL 1 tab PO DAILY 01/03/17 04/13/19 History [Janumet Xr 100-1,000 mg Tablet] Benzonatate [Tessalon Perles] 200 mg PO TID PRN 02/21/19 04/13/19 History HYDROcodone/APAP 10-325MG [[place] 1 tab PO Q4H PRN 02/21/19 04/13/19 History 10-325] Allergies Allergy/AdvReac Type Severity Reaction Status Date / Time Tetanus Vaccines and Toxoid Allergy Unknown Verified 04/13/19 16:23 [Tetanus Vaccines & Toxoid] Childhood Physical Exam Vitals: Vital Signs Temp Pulse Pulse Resp BP BP Pulse Ox 04/14/19 08:25 98.3 F 123 H 16 141/63 94 L 04/14/19 08:05 94 04/14/19 07:54 92 04/13/19 22:05 100 18 121/69 98 04/13/19 20:25 100 18 138/78 97 04/13/19 18:33 101 H 04/13/19 18:25 101 H 04/13/19 18:24 101 H 20 142/90 98 04/13/19 15:21 98.2 F 107 H 24 119/62 92 L Intake and Output 04/13/19 04/14/19 04/14/19 22:59 06:59 14:59 Intake Total 240 Output Total 500 200 Balance -500 -200 240 Intake: Oral 240 Output: Urine 500 200 Other: Weight 125.645 kg 123.3 kg 123.3 kg PHYSICAL EXAMINATION: GENERAL: 73-year-old gentleman in no acute distress at the time of my examination HEENT: Head is atraumatic, normocephalic. Pupils equal, round. Sclera anicteric. Conjunctiva are clear. Mucous membranes of the mouth are moist. Ne ck is supple. There is elevated jugular venous pressure. No carotid bruit is heard. HEART EXAMINATION: Heart S1, S2 normal. No murmur or gallop heard. CHEST EXAMINATION: Lungs reveal diminished air entry bilaterally with some fine expiratory wheezing ABDOMEN: Soft, obese, nontender. Bowel sounds are heard. No organomegaly noted. EXTREMITIES: 2+ peripheral pulses with trace evidence of peripheral edema and no calf tenderness noted. NEUROLOGIC patient is awake, alert and oriented 3 . . Results 04/13/19 16:05 04/13/19 16:05 Cardiac Enzymes 04/13/19 04/13/19 04/13/19 Range/Units 16:05 16:05 22:05 AST 36 (17-59) U/L Troponin I <0.012 <0.012 (0.000-0.034) ng/mL Coagulation 04/13/19 Range/Units 16:05 PT 16.2 H (9.0-12.0) sec APTT 30.5 H (22.0-30.0) sec CBC 04/13/19 Range/Units 16:05 WBC 16.7 H (3.8-10.6) k/uL RBC 4.33 (4.30-5.90) m/uL Hgb 11.5 L (13.0-17.5) gm/dL Hct 36.6 L (39.0-53.0) % Plt Count 358 (150-450) k/uL Comprehensive Metabolic Panel 04/13/19 Range/Units 16:05 Sodium 136 L (137-145) mmol/L Potassium 4.2 (3.5-5.1) mmol/L Chloride 103 (98-107) mmol/L Carbon Dioxide 23 (22-30) mmol/L BUN 19 (9-20) mg/dL Creatinine 0.73 (0.66-1.25) mg/dL Glucose 216 H (74-99) mg/dL Calcium 9.1 (8.4-10.2) mg/dL AST 36 (17-59) U/L ALT 43 (21-72) U/L Alkaline Phosphatase 68 (38-126) U/L Total Protein 6.4 (6.3-8.2) g/dL Albumin 2.8 L (3.5-5.0) g/dL Current Medications Generic Name Dose Route Start Last Admin Trade Name Freq PRN Reason Stop Dose Admin Hydrocodone Bitart/Acetaminophen 1 each 04/13/19 21:48 04/13/19 22:02 [place] 10 PO 1 each Q4H PRN Administration Pain Albuterol/Ipratropium 3 ml 04/14/19 08:00 04/14/19 07:51 Duoneb 0.5 Mg-3 Mg/3 Ml Soln INHALATION 3 ml RT-QID KULDEEP Administration Benzonatate 200 mg 04/13/19 21:48 Tessalon Perles PO TID PRN Cough Glipizide 2.5 mg 04/14/19 07:30 04/14/19 09:48 Glucotrol PO 2.5 mg AC-BID KULDEEP Administration Linagliptin 5 mg 04/14/19 07:30 04/14/19 08:23 Tradjenta PO 5 mg W/BRKFST KULDEEP Administration Metformin HCl 1,000 mg 04/14/19 07:30 04/14/19 08:22 Glucophage PO 1,000 mg W/BRKFST KULDEEP Administration Warfarin Sodium 2.5 mg 04/14/19 21:00 Coumadin PO HS KULDEEP Intake and Output 04/13/19 04/14/19 04/14/19 22:59 06:59 14:59 Intake Total 240 Output Total 500 200 Balance -500 -200 240 Intake: Oral 240 Output: Urine 500 200 Other: Weight 125.645 kg 123.3 kg 123.3 kg Patient Weight 04/15/19 06:59 Weight 123.3 kg 04/13/19 16:05 04/13/19 16:05 EKG Interpretations (text) EKG shows a sinus tachycardia with occasional PVC and PACs, nonspecific ST-T wave changes Assessment and Plan Plan: Assessment and plan #1 symptoms of persistent cough with associated shortness of breath, PND and or thopnea, clinical picture suggestive of acute congestive heart failure. Patient had an echocardiogram with Doppler study performed in August which revealed a normal left ventricular systolic function. Diastolic acute on chronic. BNP level 3400. #2 diabetes #3 history of pulmonary embolism several years ago for which the patient takes Coumadin, INR on admission 1.6. CTA of the chest negative for pulmonary embolism. #4 hypomagnesemia #5 elevated white blood cell count, no associated fever. Could be secondary to UTI. Plan We will repeat an echocardiogram with Doppler study. We will start the patient on some IV Lasix, we will also start the patient on a statin being that he is an adult with diabetes, and initiate a small dose of beta adrian and SULMA inhibitor. Replace magnesium. Monitor intake and output along with daily weights and daily lytes BUN and creatinine. Further recommendations to follow. DNP note has been reviewed, I agree with a documented findings and plan of care. Patient was seen and examined.
[2019-04-14] MEDS: FUROSEMIDE 10 MG/ML 4 ML VIAL IV SCH ×2 (11:09→20:47)
[2019-04-14] MEDS: METOPROLOL SUCCINATE (ER) 25 MG TAB.ER.24H PO SCH (11:09)
--- NOTE | 2019-04-14 11:55 | P.HPIM ---
History of Present Illness 74-year-old pleasant gentleman came in with compensative 6 weeks of cough. Patient used the 3 courses of azithromycin without any significant improvement patient does have some redness in the back of the throat patient was complaining of orthopnea and no paroxysmal nocturnal dyspnea orthopnea started 6-7 weeks ago patient is morbidly obese. Patient has elevated BNP but doesn't have any JVD or pedal edema. Patient had a normal ejection fraction the past patient is undergoing a repeat echocardiogram. Patient was apparently started on Lasix which I believe is appropriate but the possibility of CHF either diastolic or systolic dysfunction with acute exacerbation is low. Patient appears to have either cough variant asthma or gastroesophageal reflux disease. I'll start him on empiric proton pump inhibitor as well as albuterol and see if he has any symptomatic improvement from that. Patient was using Tessalon Perles for cough without any significant improvement. CAT scan of the head and chest was opted which did not show any PE or any malignancy. Pulmonology was consult as well. Patient denied any other exertional shortness of breath his main complaint is persistent cough. Patient is not on an SULMA inhibitor. Review of Systems REVIEW OF SYSTEMS: CONSTITUTIONAL: No fever, no malaise, no fatigue. HEENT: No recent visual problems or hearing problems. Denied any sore throat. CARDIOVASCULAR: No chest pain, orthopnea, PND, no palpitations, no syncope. PULMONARY: no hemoptysis. GASTROINTESTINAL: No diarrhea, no nausea, no vomiting, no abdominal pain. NEUROLOGICAL: No headaches, no weakness, no numbness. HEMATOLOGICAL: Denies any bleeding or petechiae. GENITOURINARY: Denies any burning micturition, frequency, or urgency. MUSCULOSKELETAL/RHEUMATOLOGICAL: Denies any joint pain, swelling, or any muscle pain. ENDOCRINE: Denies any polyuria or polydipsia. The rest of the 14-point review of systems is negative. 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 DRY PATCHES AT TIMES ON SCALP. DEG.JOINT DISEASE-HANDS,KNEES,BACK History of Any Multi-Drug Resistant Organisms: None Reported Past Surgical History: Hernia Repair, Orthopedic Surgery Additional Past Surgical History / Comment(s): ORCHIECTOMY & RT ING HERNIA REPAIR 2000-PT LATER DEVELOPED PE 02/2001. ARTHROSCOPIC HAZEL. KNEES, right femur january 04 2017 Past Anesthesia/Blood Transfusion Reactions: No Reported Reaction Past Psychological History: No Psychological Hx Reported Smoking Status: Never smoker Past Alcohol Use History: Daily, Occasional Past Drug Use History: None Reported - Past Family History Brother(s) Family Medical History: Cancer Additional Family Medical History / Comment(s): ESOPHAGUS CA Medications and Allergies Home Medications Medication Instructions Recorded Confirmed Type Warfarin [Coumadin] 2.5 mg PO HS 01/03/17 04/13/19 History glipiZIDE XL [Glucotrol Xl] 5 mg PO DAILY 01/03/17 04/13/19 History sitaGLIPtin PHOS/metFORMIN HCL 1 tab PO DAILY 01/03/17 04/13/19 History [Janumet Xr 100-1,000 mg Tablet] Benzonatate [Tessalon Perles] 200 mg PO TID PRN 02/21/19 04/13/19 History HYDROcodone/APAP 10-325MG [[place] 1 tab PO Q4H PRN 02/21/19 04/13/19 History 10-325] Allergies Allergy/AdvReac Type Severity Reaction Status Date / Time Tetanus Vaccines and Toxoid Allergy Unknown Verified 04/13/19 16:23 [Tetanus Vaccines & Toxoid] Childhood Physical Exam Vitals: Vital Signs Temp Pulse Pulse Resp BP BP Pulse Ox 04/14/19 08:25 98.3 F 123 H 16 141/63 94 L 04/14/19 08:05 94 04/14/19 07:54 92 04/13/19 22:05 100 18 121/69 98 04/13/19 20:25 100 18 138/78 97 04/13/19 18:33 101 H 04/13/19 18:25 101 H 04/13/19 18:24 101 H 20 142/90 98 04/13/19 15:21 98.2 F 107 H 24 119/62 92 L Intake and Output 04/13/19 04/14/19 04/14/19 22:59 06:59 14:59 Intake Total 240 Output Total 500 200 Balance -500 -200 240 Intake: Oral 240 Output: Urine 500 200 Other: Weight 125.645 kg 123.3 kg 123.3 kg PHYSICAL EXAMINATION: GENERAL: The patient is alert and oriented x3, not in any acute distress. Obese HEENT: Pupils are round and equally reacting to light. EOMI. No scleral icterus. No conjunctival pallor. Normocephalic, atraumatic. He does have pharyngeal erythema. No thyromegaly. CARDIOVASCULAR: S1 and S2 present. No murmurs, rubs, or gallops. PULMONARY: Chest is clear to auscultation, no wheezing or crackles. ABDOMEN: Soft, nontender, nondistended, normoactive bowel sounds. No palpable organomegaly. MUSCULOSKELETAL: No joint swelling or deformity. EXTREMITIES: No cyanosis, clubbing, or pedal edema. NEUROLOGICAL: Gross neurological examination did not reveal any focal deficits. SKIN: No rashes. Results CBC & Chem 7: 04/13/19 16:05 04/13/19 16:05 Labs: Abnormal Lab Results - Last 24 Hours (Table) 04/13/19 04/13/19 04/13/19 Range/Units 16:05 16:05 16:05 WBC 16.7 H (3.8-10.6) k/uL Hgb 11.5 L (13.0-17.5) gm/dL Hct 36.6 L (39.0-53.0) % RDW 16.5 H (11.5-15.5) % Neutrophils # 13.8 H (1.3-7.7) k/uL PT 16.2 H (9.0-12.0) sec INR 1.6 H (<1.2) APTT 30.5 H (22.0-30.0) sec D-Dimer 1.16 H (<0.60) mg/L FEU Sodium 136 L (137-145) mmol/L Glucose 216 H (74-99) mg/dL POC Glucose (mg/dL) (75-99) mg/dL Magnesium 1.5 L (1.6-2.3) mg/dL Albumin 2.8 L (3.5-5.0) g/dL Ur Specific [place] (1.001-1.035) Urine Protein (Negative) Urine Blood (Negative) Ur Leukocyte Esterase (Negative) Urine RBC (0-5) /hpf Urine WBC (0-5) /hpf Amorphous Sediment (None) /hpf Urine Bacteria (None) /hpf Urine Mucus (None) /hpf 04/14/19 04/14/19 Range/Units 06:30 08:12 WBC (3.8-10.6) k/uL Hgb (13.0-17.5) gm/dL Hct (39.0-53.0) % RDW (11.5-15.5) % Neutrophils # (1.3-7.7) k/uL PT (9.0-12.0) sec INR (<1.2) APTT (22.0-30.0) sec D-Dimer (<0.60) mg/L FEU Sodium (137-145) mmol/L Glucose (74-99) mg/dL POC Glucose (mg/dL) 224 H (75-99) mg/dL Magnesium (1.6-2.3) mg/dL Albumin (3.5-5.0) g/dL Ur Specific [place] 1.037 H (1.001-1.035) Urine Protein Trace H (Negative) Urine Blood Small H (Negative) Ur Leukocyte Esterase Large H (Negative) Urine RBC 11 H (0-5) /hpf Urine WBC 84 H (0-5) /hpf Amorphous Sediment Few H (None) /hpf Urine Bacteria Occasional H (None) /hpf Urine Mucus Rare H (None) /hpf Assessment and Plan Plan: -Chronic cough: Possibility of gastroesophageal reflux disease, patient is on Protonix coffee didn't asthma is a possibility. Patient doesn't appear to have any bacterial bronchitis will not require any more antibiotics doesn't have any pneumonia at this time. Possibly of CHF is low. -shortness of breath: I believe it's secondary to his obesity and the restrictive lung disease. Patient does have elevated BNP but doesn't have any JVD or pedal edema patient had a normal ejection fraction my suspicion of CHF is low but the it's reasonable to use a day of IV Lasix and see if there is any symptomatic improvement. Repeat echocardiogram is being obtained. -Diabetes mellitus2: Patient will be resumed on his home regimen will be any to monitor the blood sugars. -Hyperlipidemia -History of PE for which patient is on Coumadin and do not have any INR available we'll obtain INR. -DVT prophylaxis early ambulation
[2019-04-14 12:05] LABS: Glucose,Whole Blood 326 mg/dL (75-99)
[2019-04-14] MEDS: PANTOPRAZOLE 40 MG/10 ML VIAL IVP SCH ×2 (12:31→20:47)
[2019-04-14 13:09] LABS: Prothrombin Time 19.9 sec (9.0-12.0)
[2019-04-14] MEDS: MAGNESIUM SULFATE-D5W PMX 1 GM in DEXTROSE/WATER 1 100ML.BAG IVPB SCH ×2 (14:28→15:55)
--- NOTE | 2019-04-14 15:44 | P.CNPUL ---
History of Present Illness Consult date: 04/14/19 Reason for consult: cough Chief complaint: Cough History of present illness: This is a 73-year-old white male patient of Dr. Ho who is coming in for evaluation of persistant cough of 7-8 week duration. Denies any fever or chills, he states he has been treated on an outpatient basis by Dr. Ho, and he was in Dr. Ho's office last week on 04/05/2019 and according to the office notes his cough was resolving he was given antibiotics and prednisone, and an inhaler. CT of the chest on 02/21/2019 showed no acute intrathoracic findings, multiple stones in the left kidney, and a subcentimeter calcified lesion in the right thyroid gland. On 04/13/2019 patient presented to the emergency department, complaining of persistent cough, some mild dyspnea with exertion, and weakness. He states his coughing is mostly at night, it is dry and hacking, more so time it's nonproductive, denied any chest pain, denied any fever or chills, denied any phlegm production. No hemoptysis. Patient states he cannot lay down because of coughing. Also reports some lower extremity swelling, patient did have a right knee surgery in November 2018, he underwent rehabilitation. Patient has a remote history of smoking which is currently in remission for the past 22 years, he did smoke up to 2 packs a day for 35 years prior to that, he did have outpatient PFT with Dr. Marquez in the clinic, and was found to have some mild obstructive airway disease with FEV1 of 81%. Other medical history includes osteoarthritis, hypertriglyceridemia, diabetes mellitus, history of UTIs, cough variant asthma, history of pulmonary embolism, history of factor II deficiency, patient follows with Dr. Palacio, and he takes Coumadin for anticoagulation. Admission chest x-ray showed no acute process. White blood cell count was 16.7, hemoglobin was 11.5, INR was 1.6, d-dimer was 1.16, sodium was 136, the rest of electrolytes and renal profile were within normal limits, proBNP was elevated at 3004 100, troponins were negative 3. CT angios chest showed no evident pulmonary embolism, coronary artery disease, possible pulmonary arterial hypertension, nonobstructive renal calculi, and probable cholelithiasis and possible chronic cholecystitis. EKG showed sinus tachycardia, with PVCs, no acute ischemic changes. Previous echocardiogram from August 2018 showed normal left ventricular systolic function. he has been started on IV diuretics, nebulized bronchodilators, he is being evaluated by cardiology. An were asked to see the patient in regards to persistent cough Review of Systems All systems: negative Constitutional: Reports fatigue, Reports weakness, Denies chills, Denies fever Eyes: denies blurred vision, denies pain Ears, nose, mouth and throat: Denies headache, Denies sore throat Cardiovascular: Reports decreased exercise tolerance, Reports dyspnea on exertion, Reports edema, Reports orthopnea, Denies chest pain, Denies shortness of breath Respiratory: Reports cough, Reports dyspnea Gastrointestinal: Denies abdominal pain, Denies diarrhea, Denies nausea, Denies vomiting Musculoskeletal: Denies myalgias Integumentary: Denies pruritus, Denies rash Neurological: Denies numbness, Denies weakness Psychiatric: Denies anxiety, Denies depression Endocrine: Denies fatigue, Denies weight change Past Medical History Past Medical History: Blood Disorder, Diabetes Mellitus, Hyperlipidemia, Osteoarthritis (OA), Pulmonary Embolus (PE), Skin Disorder Additional Past Medical History / Comment(s): HX PE 03/13/2001- HAS PROTHOMBIN GENE MUTATION-FACTOR 2 WAYNE-SEES NERI ORDOÑEZ FOR THIS. DRY PATCHES AT TIMES ON SCALP. DEG.JOINT DISEASE-HANDS,KNEES,BACK History of Any Multi-Drug Resistant Organisms: None Reported Past Surgical History: Hernia Repair, Orthopedic Surgery Additional Past Surgical History / Comment(s): ORCHIECTOMY & RT ING HERNIA REPAIR 2000-PT LATER DEVELOPED PE 02/2001. ARTHROSCOPIC HAZEL. KNEES, right femur january 04 2017 Past Anesthesia/Blood Transfusion Reactions: No Reported Reaction Past Psychological History: No Psychological Hx Reported Smoking Status: Never smoker Past Alcohol Use History: Daily, Occasional Past Drug Use History: None Reported - Past Family History Brother(s) Family Medical History: Cancer Additional Family Medical History / Comment(s): ESOPHAGUS CA Medications and Allergies Home Medications Medication Instructions Recorded Confirmed Type Warfarin [Coumadin] 2.5 mg PO HS 01/03/17 04/13/19 History glipiZIDE XL [Glucotrol Xl] 5 mg PO DAILY 01/03/17 04/13/19 History sitaGLIPtin PHOS/metFORMIN HCL 1 tab PO DAILY 01/03/17 04/13/19 History [Janumet Xr 100-1,000 mg Tablet] Benzonatate [Tessalon Perles] 200 mg PO TID PRN 02/21/19 04/13/19 History HYDROcodone/APAP 10-325MG [[place] 1 tab PO Q4H PRN 02/21/19 04/13/19 History 10-325] Allergies Allergy/AdvReac Type Severity Reaction Status Date / Time Tetanus Vaccines and Toxoid Allergy Unknown Verified 04/13/19 16:23 [Tetanus Vaccines & Toxoid] Childhood Physical Exam Vitals: Vital Signs Temp Pulse Pulse Resp BP BP Pulse Ox 04/14/19 12:38 98.1 F 110 H 16 153/88 95 04/14/19 08:25 98.3 F 123 H 16 141/63 94 L 04/14/19 08:05 94 04/14/19 07:54 92 04/13/19 22:05 100 18 121/69 98 04/13/19 20:25 100 18 138/78 97 04/13/19 18:33 101 H 04/13/19 18:25 101 H 04/13/19 18:24 101 H 20 142/90 98 04/13/19 15:21 98.2 F 107 H 24 119/62 92 L Intake and Output 04/14/19 04/14/19 04/14/19 06:59 14:59 22:59 Intake Total 600 Output Total 200 Balance -200 600 Intake: Oral 600 Output: Urine 200 Other: # Voids 3 Weight 123.3 kg 123.3 kg GENERAL EXAM: Alert, slightly irritable, 73-year-old white male, sitting up on the edge of the bed, with a room air pulse ox of 95% comfortable in no apparent distress. HEAD: Normocephalic/atraumatic. EYES: Normal reaction of pupils, equal size. Conjunctiva pink, sclera white. NOSE: Clear with pink turbinates. THROAT: No erythema or exudates. NECK: No masses, no JVD, no thyroid enlargement, no adenopathy. CHEST: No chest wall deformity. Symmetrical expansion. LUNGS: Equal air entry with no crackles, wheeze, rhonchi or dullness. Diminished breath sounds bilaterally, CVS: Regular rate and rhythm, normal S1 and S2, no gallops, no murmurs, no rubs ABDOMEN: Soft, nontender. No hepatosplenomegaly, normal bowel sounds, no guarding or rigidity. EXTREMITIES: No clubbing, 1+ lower extremity edema, no cyanosis, 2+ pulses and upper and lower extremities. MUSCULOSKELETAL: Muscle strength and tone normal. SPINE: No scoliosis or deformity SKIN: No rashes CENTRAL NERVOUS SYSTEM: Alert and oriented -3. No focal deficits, tone is normal in all 4 extremities. PSYCHIATRIC: Alert and oriented -3. Appropriate affect. Intact judgment and insight. Results - Laboratory Findings CBC and BMP: 04/13/19 16:05 04/13/19 16:05 PT/INR, D-dimer PT 19.9 sec (9.0-12.0) H 04/14/19 12:27 INR 2.0 (<1.2) H 04/14/19 12:27 D-Dimer 1.16 mg/L FEU (<0.60) H 04/13/19 16:05 Abnormal lab findings: Abnormal Labs 04/13/19 04/13/19 04/13/19 16:05 16:05 16:05 WBC 16.7 H Hgb 11.5 L Hct 36.6 L RDW 16.5 H Neutrophils # 13.8 H PT 16.2 H INR 1.6 H APTT 30.5 H D-Dimer 1.16 H Sodium 136 L Glucose 216 H POC Glucose (mg/dL) Magnesium 1.5 L Albumin 2.8 L Ur Specific [place] Urine Protein Urine Blood Ur Leukocyte Esterase Urine RBC Urine WBC Amorphous Sediment Urine Bacteria Urine Mucus 04/14/19 04/14/19 04/14/19 06:30 08:12 11:45 WBC Hgb Hct RDW Neutrophils # PT INR APTT D-Dimer Sodium Glucose POC Glucose (mg/dL) 224 H 326 H Magnesium Albumin Ur Specific [place] 1.037 H Urine Protein Trace H Urine Blood Small H Ur Leukocyte Esterase Large H Urine RBC 11 H Urine WBC 84 H Amorphous Sediment Few H Urine Bacteria Occasional H Urine Mucus Rare H 04/14/19 12:27 WBC Hgb Hct RDW Neutrophils # PT 19.9 H INR 2.0 H APTT D-Dimer Sodium Glucose POC Glucose (mg/dL) Magnesium Albumin Ur Specific [place] Urine Protein Urine Blood Ur Leukocyte Esterase Urine RBC Urine WBC Amorphous Sediment Urine Bacteria Urine Mucus - Diagnostic Findings Chest x-ray: report reviewed, image reviewed CT scan - chest: report reviewed, image reviewed Assessment and Plan Plan: Assessment: #1. Persistent cough, possibly related to exacerbation of cough variant asthma/COPD and acute exacerbation of diastolic CHF #2. Acute exacerbation of diastolic congestive heart failure #3. Mildly elevated d-dimer, CT chest without any evidence of pulmonary embo lism #4. Acute urinary tract infection #5. History of prothrombin gene mutation, factor II deficiency, on chronic anticoagulation with Coumadin #6. Diabetes mellitus type 2 #7. Prior history of pulmonary embolism #8. Degenerative arthritis of bilateral knees, status post recent right knee surgery #9. Previous history of urinary tract infection Plan: Continue with nebulized bronchodilators, will start IV steroids, we'll make the Tessalon Perles scheduled [id number], patient is being diuresis, monitor daily labs and renal profile. We'll add Rocephin for urinary tract infection, urine culture is pending, no fever or chills, repeat echocardiogram is pending. I performed a history & physical examination of the patient and discussed their management with my nurse practitioner, Lexis Mclean. I reviewed the nurse practitioner's note and agree with the documented findings and plan of care. Lung sounds are positive for diminished breath sounds. The findings and the impression was discussed with the patient. I attest to the documentation by the nurse practitioner. Time with Patient: Greater than 30
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
[2019-04-14 16:57] LABS: Glucose,Whole Blood 279 mg/dL (75-99)
[2019-04-14] MEDS: methylPREDNISolone SOD SUCCI 40 MG/ML 1 ML VIAL IV SCH (17:20)
[2019-04-14] MEDS: BENZONATATE 100 MG CAP PO SCH (17:20)
--- NOTE | 2019-04-14 18:56 | ECHOF ---
Referral Reason:chf MEASUREMENTS -------- HEIGHT: 177.8 cm WEIGHT: 122.5 kg BP: 141/63 IVSd: 1.5 cm (0.6 - 1.1) LVIDd: 4.8 cm (3.9 - 5.3) LVPWd: 1.4 cm (0.6 - 1.1) IVSs: 1.6 cm LVIDs: 3.1 cm LVPWs: 1.7 cm LAESV Index (A-L): 31.09 ml/m MV E Sree: 0.92 m/s MV DecT: 202 ms MV A Sree: 1.04 m/s MV E/A Ratio: 0.88 RAP: 5.00 mmHg RVSP: 20.91 mmHg FINDINGS -------- Sinus rhythm. Morbid Obesity, Lumason used. There is moderate concentric left ventricular hypertrophy. Overall left ventricular systolic functi on is normal with, an EF between 55 - 60 %. The diastolic filling pattern is normal for the age of the patient {E/E'}. The RV was not well visualized. LA is midly dilated 29-33ml/m2. The right atrium was not well visualized. Interatrial and interventricular septum intact. The aortic valve was not well visualized. There is no evidence of aortic regurgitation. There is no evidence of aortic stenosis. Moderate mitral annular calcification present. Mild mitral regurgitation is present. The tricuspid valve was not well visualized. Mild tricuspid regurgitation present. There is no ev idence of pulmonary hypertension. The right ventricular systolic pressure, as measured by Doppler, is 20.91mmHg. The pulmonic valve was not well visualized. There is no pulmonic regurgitation present. The aortic root size is normal. IVC Not well visulized. There is no pericardial effusion. CONCLUSIONS -------- 1. Sinus rhythm. 2. Morbid Obesity, Lumason used. 3. There is moderate concentric left ventricular hypertrophy. 4. Overall left ventricular systolic function is normal with, an EF between 55 - 60 %. 5. The diastolic filling pattern is normal for the age of the patient {E/E'} 6. The RV was not well visualized. 7. LA is midly dilated 29-33ml/m2. 8. The right atrium was not well visualized. 9. Interatrial and interventricular septum intact. 10. The aortic valve was not well visualized. 11. There is no evidence of aortic regurgitation. 12. There is no evidence of aortic stenosis. 13. Moderate mitral annular calcification present. 14. Mild mitral regurgitation is present. 15. The tricuspid valve was not well visualized. 16. Mild tricuspid regurgitation present. 17. There is no evidence of pulmonary hypertension. 18. The right ventricular systolic pressure, as measured by Doppler, is 20.91mmHg. 19. The pulmonic valve was not well visualized. 20. There is no pulmonic regurgitation present. 21. The aortic root size is normal. 22. IVC Not well visulized. 23. There is no pericardial effusion. SEROLOGY TEACHER: Melissa Britt RDCS
[2019-04-14] MEDS: BUDESONIDE 0.5 MG/2 ML NEBU INHALATION SCH (20:22)
[2019-04-14 20:31] LABS: Glucose,Whole Blood 335 mg/dL (75-99)
[2019-04-14] MEDS: WARFARIN 2.5 MG TAB PO SCH (21:43)
[2019-04-14] MEDS: INSULIN ASPART (NovoLOG) 100 UNIT/ML VIAL SQ SCH (21:57)
[2019-04-15] MEDS: BENZONATATE 100 MG CAP PO SCH ×4 (03:57→21:08)
[2019-04-15] MEDS: methylPREDNISolone SOD SUCCI 40 MG/ML 1 ML VIAL IV SCH ×2 (03:58→09:02)
[2019-04-15 06:03] LABS: Glucose,Whole Blood 402 mg/dL (75-99)
[2019-04-15 06:44] LABS: INR 1.7 (<1.2); Prothrombin Time 16.9 sec (9.0-12.0)
[2019-04-15 06:53] LABS: African American GFR (CKD) >90 (>60 ml/min/1.73 sqM); Anion Gap 10 mmol/L; Blood Urea Nitrogen 21 mg/dL (9-20); Calcium 8.8 mg/dL (8.4-10.2); Carbon Dioxide 24 mmol/L (22-30); Chloride 101 mmol/L (98-107); Glucose 394 mg/dL (74-99); Potassium 4.8 mmol/L (3.5-5.1); Sodium 135 mmol/L (137-145)
[2019-04-15] MEDS: INSULIN ASPART (NovoLOG) 100 UNIT/ML VIAL SQ SCH ×4 (06:53→21:20)
[2019-04-15] MEDS: IPRATROPIUM-ALBUTEROL 3 ML NEB INHALATION SCH ×4 (08:01→20:13)
[2019-04-15] MEDS: BUDESONIDE 0.5 MG/2 ML NEBU INHALATION SCH ×2 (08:01→20:12)
[2019-04-15] MEDS: FUROSEMIDE 10 MG/ML 4 ML VIAL IV SCH (08:47)
[2019-04-15] MEDS: PANTOPRAZOLE 40 MG/10 ML VIAL IVP SCH ×2 (08:57→20:17)
[2019-04-15] MEDS ORDERED: DEXTROSE 5% IN WATER 250 ML with AMIODARONE 300 MG IV ONE (10:30)
[2019-04-15] MEDS ORDERED: VERAPAMIL 2.5 MG/ML 2 ML AMP IVP STA ×4 (10:30→10:42)
[2019-04-15] MEDS ORDERED: PROPOFOL 10 MG/ML 20 ML VIAL IV ONE (10:45)
[2019-04-15] MEDS: PROPOFOL 10 MG/ML 20 ML VIAL IV ONE ×2 (10:52→10:55)
[2019-04-15] MEDS: METOPROLOL TARTRATE 5 MG/5 ML VIAL IVP SCH ×4 (10:58→17:12)
--- NOTE | 2019-04-15 11:09 | P.PN ---
Subjective 73-year-old pleasant gentleman was admitted for a subacute to chronic cough cough improved. Etiology of cough is not clear patient is scheduled to undergo bronchoscopy today although his cough significantly improved shortness of breath improved patient was treated for multiple issues including gastroesophageal reflux disease cough irritant asthma and probable diastolic dysfunction heart failure patient was given Protonix, inhaled steroids and systemic steroids all the systems steroids will be discontinued because of his elevated blood sugars and the Lasix as well. Patient at this point of time is in sustained VT asymptomatic patient received a dose of verapamil followed by amiodarone bolus followed by synchronized cardioversion after which patient was briefly sinus rhythm and back into V. fib, receiving metoprolol at this time. Cardiology is managing his sustained VT. Patient to cardiac showed normal ejection fraction. Constitutional: Denied any fatigue denied any fever. Cardio vascular: denied any chest pain, palpitations Gastrointestinal denied any nausea vomiting Pulmonary: Denied any shortness of breath cough Neurologic denied any new focal deficits All inpatient medications were reviewed and appropriate changes in these medications as dictated in the interval history and assessment and plan. Objective - Vital Signs Vital signs: Vital Signs Temp 97.6 F 04/15/19 07:55 Pulse 90 04/15/19 08:17 Resp 16 04/15/19 08:00 BP 113/53 04/15/19 07:55 Pulse Ox 98 04/15/19 04:00 Intake & Output 04/14/19 04/15/19 04/15/19 18:59 06:59 18:59 Intake Total 840 240 Output Total 200 Balance 840 -200 240 Weight 123.3 kg 123.4 kg Intake: Oral 840 240 Output: Urine 200 Other: Voiding Method Toilet Toilet Urinal Urinal # Voids 3 3 - Exam PHYSICAL EXAMINATION: GENERAL: The patient is alert and oriented x3, not in any acute distress. Obese HEENT: Pupils are round and equally reacting to light. EOMI. No scleral icterus. No conjunctival pallor. Normocephalic, atraumatic. He does have pharyngeal erythema. No thyromegaly. CARDIOVASCULAR: Patient isn't sustained VT undergoing above-mentioned treatment at this point of time PULMONARY: Chest is clear to auscultation, no wheezing or crackles. ABDOMEN: Soft, nontender, nondistended, normoactive bowel sounds. No palpable organomegaly. MUSCULOSKELETAL: No joint swelling or deformity. EXTREMITIES: No cyanosis, clubbing, or pedal edema. NEUROLOGICAL: Gross neurological examination did not reveal any focal deficits. SKIN: No rashes. - Labs CBC & Chem 7: 04/13/19 16:05 04/15/19 05:41 Labs: Abnormal Lab Results - Last 24 Hours (Table) 04/14/19 04/14/19 04/14/19 Range/Units 11:45 12:27 16:42 PT 19.9 H (9.0-12.0) sec INR 2.0 H (<1.2) Sodium (137-145) mmol/L BUN (9-20) mg/dL Glucose (74-99) mg/dL POC Glucose (mg/dL) 326 H 279 H (75-99) mg/dL 04/14/19 04/15/19 04/15/19 Range/Units 20:28 05:41 05:41 PT 16.9 H (9.0-12.0) sec INR 1.7 H (<1.2) Sodium 135 L (137-145) mmol/L BUN 21 H (9-20) mg/dL Glucose 394 H (74-99) mg/dL POC Glucose (mg/dL) 335 H (75-99) mg/dL 04/15/19 Range/Units 06:01 PT (9.0-12.0) sec INR (<1.2) Sodium (137-145) mmol/L BUN (9-20) mg/dL Glucose (74-99) mg/dL POC Glucose (mg/dL) 402 H (75-99) mg/dL Microbiology - Last 24 Hours (Table) 04/14/19 08:12 Urine Culture - Preliminary Urine,Clean Catch Assessment and Plan Plan: -Chronic cough: Possibility of gastroesophageal reflux disease, patient is on Protonix, cough variant asthma is a possibility. Patient doesn't appear to have any bacterial bronchitis will not require any more antibiotics doesn't have any pneumonia at this time. Possibly of CHF is low. Patient has significant symptomatic improvement since yesterday with the above-mentioned the treatments and plan. Possibly of diastolic dysfunction cannot be excluded, IV steroids will be discontinued because of her highly elevated blood sugars -Sustained VT: Patient is undergoing above-mentioned treatment and cardiology is managing this as mentioned above -shortness of breath: I believe it's secondary to his obesity and the restrictive lung disease. Patient does have elevated BNP but doesn't have any JVD or pedal edema patient had a normal ejection fraction my suspicion of CHF is low did receive Lasix IV and his shortness of breath did improve, patient will be switched to oral steroids -Diabetes mellitus2: Patient will be resumed on his home regimen will be any to monitor the blood sugars. Which is significantly elevated blood because of her systemic steroids will treat with the sliding scale insulin suspect steroids will be discontinued continue the inhaled steroids -Hyperlipidemia -History of PE for which patient is on Coumadin and do not have any INR available we'll obtain INR. -DVT prophylaxis early ambulation
[2019-04-15] MEDS ORDERED: AMIODARONE 360 MG in DEXTROSE 5% IN WATER 200 ML IV ONE ×4 (11:21→11:30)
[2019-04-15] MEDS: METOPROLOL TARTRATE 50 MG TAB PO SCH ×2 (11:24→21:09)
[2019-04-15] MEDS ORDERED: MAGNESIUM SULFATE SYG 4.06 MEQ/ML SYRINGE IVPB STA (11:40)
[2019-04-15 12:02] LABS: Glucose,Whole Blood 310 mg/dL (75-99)
[2019-04-15] MEDS: LISINOPRIL 5 MG TAB PO SCH (12:30)
[2019-04-15 13:08] LABS: Glucose,Whole Blood 327 mg/dL (75-99)
[2019-04-15] MEDS: ATORVASTATIN 40 MG TAB PO SCH (13:08)
[2019-04-15] MEDS: LINAGLIPTIN 5 MG TABLET PO SCH ×2 (13:09→13:12)
[2019-04-15] MEDS ORDERED: LIDOCAINE 2% SYG (PF) 100 MG/5 ML IV ONE (13:27)
[2019-04-15] MEDS: metFORMIN 500 MG TAB PO SCH (13:40)
[2019-04-15] MEDS ORDERED: SODIUM CHLORIDE 0.9% 1,000 ML IV SCH (14:30)
--- NOTE | 2019-04-15 14:35 | P.PN ---
Subjective Progress Note Date: 04/15/19 This is a 73-year-old gentleman with history of diabetes, prior blood clot in the lung several years ago for which he takes Coumadin, he follows with Dr. Vic holbrook as his primary care physician. Denies any hypertension, nonsmoker, he presents to the hospital with symptoms of persistent cough with associated shortness of breath. Patient states that he has a hockey cough, that worsens when he lies flat, occasionally he coughed something up which is clear in color, but usually it is a dry cough. He gets quite short of breath when he lies flat as well. He had been started on an antibiotic as an outpatient with no relief of symptoms. Came to the hospital for further evaluation and treatm ent. Chest x-ray on presentation here did not reveal any acute process. CTA of the chest was performed which did not reveal any evidence of a pulmonary embolism. Possible pulmonary hypertension noted. EKG showed a sinus tachycardia with PACs and occasional PVC. Nonspecific ST-T wave changes. Blood pressure on arrival here 119/60 with a heart rate of 107, 92% on room air. Blood pressure this morning 140/60, heart rate 120, 94% on room air. White blood cell count 16.7, hemoglobin 11.5, platelet count 358. D-dimer 1.16. Sodium 136, potassium 4.2, BUN 19 and creatinine 0.7. Magnesium level I.5. Troponins are negative 2. BNP level 3400. Positive UTI. At the time of my examination this morning, patient continues to have a persistent hockey cough, continues to feel short of breath lying in bed. 04/15/2019 Patient seen and examined this morning, initially the patient stated that he felt significantly better with his breathing today and his cough had also improved significantly. His weight is down 2 kg overall. Patient went into a sustained ventricular tachycardia,Dr. Howard was present, patient was given verapamil IV 2, subsequent to that patient was also given IV Lopressor and IV amiodarone as well as some magnesium. An attempt was also made atelectasis synchronized cardioversion, patient did convert to normal sinus rhythm and again went back into ventricular tachycardia requiring a second attempt at cardioversion. Ultimately the patient was transferred in stable condition to the intensive care unit.blood pressure at time of transfer was 108/60, heart rate 1:30.sodium 135 today, potassium 4.8, BUN 21 and creatinine0.6, magnesium 2.0. Objective - Vital Signs Vital signs: Vital Signs Temp 97.9 F 04/15/19 12:10 Pulse 135 H 04/15/19 14:00 Resp 20 04/15/19 14:00 BP 103/75 04/15/19 14:00 Pulse Ox 96 04/15/19 14:00 Intake & Output 04/14/19 04/15/19 04/15/19 18:59 06:59 18:59 Intake Total 840 1240 Output Total 200 400 Balance 840 -200 840 Weight 123.3 kg 123.4 kg Intake: IV 1000 0.9 bolus 1000 Oral 840 240 Output: Urine 200 400 Other: Voiding Method Toilet Toilet Urinal Urinal # Voids 3 3 1 - Exam PHYSICAL EXAMINATION: GENERAL: 73-year-old gentleman in no acute distress at the time of my examination HEENT: Head is atraumatic, normocephalic. Pupils equal, round. Sclera anicteric. Conjunctiva are clear. Mucous membranes of the mouth are moist. Neck is supple. There is elevated jugular venous pressure. No carotid bruit is heard. HEART EXAMINATION: Heart S1, S2 normal. No murmur or gallop heard. CHEST EXAMINATION: Lungs reveal diminished air entry bilaterally with some fine expiratory wheezing ABDOMEN: Soft, obese, nontender. Bowel sounds are heard. No organomegaly noted. EXTREMITIES: 2+ peripheral pulses with trace evidence of peripheral edema and no calf tenderness noted. NEUROLOGIC patient is awake, alert and oriented 3 . - Labs CBC & Chem 7: 04/13/19 16:05 04/15/19 05:41 Labs: Abnormal Lab Results - Last 24 Hours (Table) 04/14/19 04/14/19 04/15/19 Range/Units 16:42 20:28 05:41 PT 16.9 H (9.0-12.0) sec INR 1.7 H (<1.2) Sodium (137-145) mmol/L BUN (9-20) mg/dL Glucose (74-99) mg/dL POC Glucose (mg/dL) 279 H 335 H (75-99) mg/dL 04/15/19 04/15/19 04/15/19 Range/Units 05:41 06:01 11:41 PT (9.0-12.0) sec INR (<1.2) Sodium 135 L (137-145) mmol/L BUN 21 H (9-20) mg/dL Glucose 394 H (74-99) mg/dL POC Glucose (mg/dL) 402 H 310 H (75-99) mg/dL 04/15/19 Range/Units 13:07 PT (9.0-12.0) sec INR (<1.2) Sodium (137-145) mmol/L BUN (9-20) mg/dL Glucose (74-99) mg/dL POC Glucose (mg/dL) 327 H (75-99) mg/dL Microbiology - Last 24 Hours (Table) 04/14/19 08:12 Urine Culture - Preliminary Urine,Clean Catch Coagulase Negative Staph Assessment and Plan Plan: Assessment and plan #1 symptoms of persistent cough with associated shortness of breath, PND and orthopnea, clinical picture suggestive of acute congestive heart failure. Patient had an echocardiogram with Doppler study performed in August which revealed a normal left ventricular systolic function. Diastolic acute on chronic. BNP level 3400. #2 diabetes #3 history of pulmonary embolism several years ago for which the patient takes Coumadin, INR on admission 1.6. CTA of the chest negative for pulmonary embolism. #4 hypomagnesemia #5 elevated white blood cell count, no associated fever. Could be secondary to UTI. #6 sustained ventricular tachycardia Plan Echocardiogram with Doppler study revealed normal left ventricular systolic function. Following the sustained ventricular tachycardia with subsequent elective cardioversions the patient was transferred to the intensive care unit where he will continue to be monitored over there. Amiodarone drip currently infusing and dose of beta adrian has been increased. DNP note has been reviewed, I agree with a documented findings and plan of care. Patient was seen and examined.
--- NOTE | 2019-04-15 15:06 | P.PN ---
Progress Note - Text Please see full dictation by Dr. Sanders Please see procedure note by Dee Ledesma This morning the patient abruptly went into a sustained wide complex tachycardia right bundle branch block morphology with deep S waves in the inferior leads Blood pressure was stable 330 240 mmHg 10 mg of IV verapamil did not terminate the tachycardia Electrical cardioversion was successful but the tachycardia reinitiated after a few minutes IV metoprolol did not terminate the tachycardia Blood pressure remained stable He was started on IV amiodarone Electrical cardioversion second time was successful 100 J but once again the tachycardia reinitiated At this point we transfer him to the ICU and started on amiodarone drip Later since he was still in the V. tach at 137 beats a minute I started lidocaine IV A 50 mg dose of lidocaine did not terminate the tachycardia he is started on a lidocaine drip along with IV amiodarone At this point he is stable and pain-free do not feel palpitations and is not dizzy His blood pressure is 105-110 mmHg systolic Add a very detailed discussion with the patient and his family members including his I explained the possibilities for this LV VT He is clearly failed multiple drugs and an EP study and VT ablation would be indicated Success rate for this VT would be about 90% Complications including cardiac puncture stroke damage to the electrical wiring requiring permanent pacemaker implantation was explained line reasons for failure were explained All questions were answered Plan is to continue IV amiodarone for now and if he does not terminate on drugs then tomorrow I will perform an electrical cardioversion Hopefully I can control him with high dose beta blockers and minimize the d uration of amiodarone use The other option is sotalol orally as well as we can minimize the duration of amiodarone TSH will be sent 2-D echo and Doppler study shows preserved LV systolic function
--- NOTE | 2019-04-15 15:19 | P.PCN ---
Preoperative Diagnosis: Electrical cardioversion under anesthesia Indication: Sustained ventricular tachycardia, right bundle branch block type pattern, superior axis, rate 145 bpm Procedure: Patient was found to be in sustained ventricular tachycardia. EKG revealed ventricular tachycardia with a bright right bundle branch block type pattern, superior axis, deep S waves inferiorly, rate 145 bpm. His blood pressure was stable in the 130s systolic. Patient was asymptomatic, no chest pain, palpitations, dizziness or shortness of breath. Patient was given 10 mg of IV verapamil and remained in ventricular tachycardia. Anesthesia was at the bedside and administered sedation. He subsequently underwent electrical cardioversion with a 100 J Joules biphasic shock. He was successfully converted to sinus rhythm and then went back into ventricular tachycardia. He was given a 150 mg bolus of amiodarone as well as IV Lopressor 5 mg. He remained in the ventricular tachycardia. He was again cardioverted with a 100 J biphasic shock under sedation by anesthesia and successfully converted to sinus rhythm again. He subsequently continued to have several more episodes of recurrent ventricular tachycardia. He was given another dose of IV Lopressor as well as 2 mg of magnesium. His blood pressure remained stable. He was transferred to the ICU Plan: Transferred to the ICU on an amiodarone drip
[2019-04-15] MEDS: LIDOCAINE-D5W PMX 2G/250ML 2,000 MG in DEXTROSE/WATER 1 250ML.BAG IV SCH (15:25)
[2019-04-15 16:33] LABS: T4, Free (Free Thyroxine) 2.02 ng/dL (0.78-2.19)
--- NOTE | 2019-04-15 17:02 | P.PN ---
Subjective Progress Note Date: 04/15/19 Principal diagnosis: Sustained V. tach, persistent cough of unknown etiology, acute congestive heart failure On 04/15/2019 patient seen in follow-up in the intensive care unit, apparently patient went into sustained ventricular tachycardia this morning, he underwent synchronized cardioversion, and she was shocked with 100 J of biphasic shock and initially converted to sinus rhythm however reverted back to ventricular tachycardia. He was then given a bolus of amiodarone, and IV Lopressor 5 mg, and he persistent with ventricular tachycardia, another shot with the 100 joules of biphasic shock was delivered under sedation by anesthesia and patient again converted to sinus rhythm, however continued to have several more episodes of recurrent ventricular tachycardia. He was given another dose of IV Lopressor, and 2 more grams of magnesium, he remains on amiodarone drip, and a lidocaine drip was initiated, currently infusing at 2 mg/min. patient was then transferred to the intensive care unit for closer monitoring. His bronchoscopy was scheduled for today however in view of the above-mentioned eventually had to be canceled. His cough has improved, he remains on nebulized bronchodilators, IV Rocephin, and IV steroids have been discontinued. Objective - Vital Signs Vital signs: Vital Signs Temp 97.9 F 04/15/19 12:10 Pulse 138 H 04/15/19 15:00 Resp 20 04/15/19 15:00 BP 96/72 04/15/19 15:00 Pulse Ox 96 04/15/19 15:00 Intake & Output 04/14/19 04/15/19 04/15/19 18:59 06:59 18:59 Intake Total 840 1240 Output Total 200 400 Balance 840 -200 840 Weight 123.3 kg 123.4 kg Intake: IV 1000 0.9 bolus 1000 Oral 840 240 Output: Urine 200 400 Other: Voiding Method Toilet Toilet Urinal Urinal # Voids 3 3 0 - Exam GENERAL EXAM: Alert, pleasant, 73-year-old white male on room air, with a pulse ox 96% comfortable in no apparent distress. HEAD: Normocephalic/atraumatic. EYES: Normal reaction of pupils, equal size. Conjunctiva pink, sclera white. NOSE: Clear with pink turbinates. THROAT: No erythema or exudates. NECK: No masses, no JVD, no thyroid enlargement, no adenopathy. CHEST: No chest wall deformity. Symmetrical expansion. LUNGS: Equal air entry with no crackles, wheeze, rhonchi or dullness. CVS: Regular rate and rhythm, normal S1 and S2, no gallops, no murmurs, no rubs. He is tachycardic ABDOMEN: Soft, nontender. No hepatosplenomegaly, normal bowel sounds, no guarding or rigidity. EXTREMITIES: No clubbing, no edema, no cyanosis, 2+ pulses and upper and lower extremities. MUSCULOSKELETAL: Muscle strength and tone normal. SPINE: No scoliosis or deformity SKIN: No rashes CENTRAL NERVOUS SYSTEM: Alert and oriented -3. No focal deficits, tone is normal in all 4 extremities. PSYCHIATRIC: Alert and oriented -3. Appropriate affect. Intact judgment and i nsight. - Labs CBC & Chem 7: 04/13/19 16:05 04/15/19 05:41 Labs: Abnormal Lab Results - Last 24 Hours (Table) 04/14/19 04/14/19 04/15/19 Range/Units 16:42 20:28 05:41 PT 16.9 H (9.0-12.0) sec INR 1.7 H (<1.2) Sodium (137-145) mmol/L BUN (9-20) mg/dL Glucose (74-99) mg/dL POC Glucose (mg/dL) 279 H 335 H (75-99) mg/dL TSH (0.465-4.680) mIU/L 04/15/19 04/15/19 04/15/19 Range/Units 05:41 05:41 06:01 PT (9.0-12.0) sec INR (<1.2) Sodium 135 L (137-145) mmol/L BUN 21 H (9-20) mg/dL Glucose 394 H (74-99) mg/dL POC Glucose (mg/dL) 402 H (75-99) mg/dL TSH 0.151 L (0.465-4.680) mIU/L 04/15/19 04/15/19 Range/Units 11:41 13:07 PT (9.0-12.0) sec INR (<1.2) Sodium (137-145) mmol/L BUN (9-20) mg/dL Glucose (74-99) mg/dL POC Glucose (mg/dL) 310 H 327 H (75-99) mg/dL TSH (0.465-4.680) mIU/L Microbiology - Last 24 Hours (Table) 04/14/19 08:12 Urine Culture - Preliminary Urine,Clean Catch Coagulase Negative Staph Assessment and Plan Plan: Assessment: #1. Sustained ventricular tachycardia, status post synchronized cardioversion 2, with 100 J of biphasic shock, and patient has reverted back to ventricular tachycardia #2. Persistent cough, possibly related to exacerbation of cough variant asthma/COPD and acute exacerbation of diastolic CHF #3. Acute exacerbation of diastolic congestive heart failure #4. Mildly elevated d-dimer, CT chest without any evidence of pulmonary embolism #5. Acute urinary tract infection #6. History of prothrombin gene mutation, factor II deficiency, on chronic anticoagulation with Coumadin #7. Diabetes mellitus type 2 #8. Prior history of pulmonary embolism #9. Degenerative arthritis of bilateral knees, status post recent right knee surgery #10. Previous history of urinary tract infection Plan: Patient remains in ventricular tachycardia, he has failed 2 attempts of cardioversion and reverted back to DVT, clinically relatively asymptomatic, hemodynamically stable, denies any chest pain or shortness of breath, he is on amiodarone, and lidocaine drip at this time. Cardiology is following, his INR today is 1.7. EP study and ablation procedure scheduled for tomorrow, patient will remain the intensive care unit tonight. We canceled the bronchoscopy for today. His cough is improving, no acute distress. I performed a history & physical examination of the patient and discussed their management with my nurse practitioner, Lexis Mclean. I reviewed the nurse practitioner's note and agree with the documented findings and plan of care. Lung sounds are positive for diminished breath sounds. The findings and the impression was discussed with the patient. I attest to the documentation by the nurse practitioner. Time with Patient: Less than 30
[2019-04-15] MEDS: FUROSEMIDE 40 MG TAB PO SCH (17:07)
[2019-04-15] MEDS: METOPROLOL SUCCINATE (ER) 25 MG TAB.ER.24H PO SCH (17:10)
[2019-04-15] MEDS: AMIODARONE 300 MG in DEXTROSE 5% IN WATER 250 ML IV SCH ×2 (17:17)
[2019-04-15 17:25] LABS: Glucose,Whole Blood 361 mg/dL (75-99)
[2019-04-15] MEDS ORDERED: AMIODARONE 300 MG in DEXTROSE 5% IN WATER 250 ML IV SCH ×2 (18:30)
[2019-04-15] MEDS: WARFARIN 2.5 MG TAB PO SCH (21:08)
[2019-04-15 21:29] LABS: Glucose,Whole Blood 317 mg/dL (75-99)
[2019-04-16] MEDS: AMIODARONE 300 MG in DEXTROSE 5% IN WATER 250 ML IV SCH ×2 (03:30)
[2019-04-16 04:04] LABS: Glucose,Whole Blood 234 mg/dL (75-99)
[2019-04-16 06:08] LABS: African American GFR (CKD) >90 (>60 ml/min/1.73 sqM); Anion Gap 6 mmol/L; Blood Urea Nitrogen 28 mg/dL (9-20); Calcium 8.1 mg/dL (8.4-10.2); Carbon Dioxide 25 mmol/L (22-30); Chloride 106 mmol/L (98-107); Glucose 194 mg/dL (74-99); Potassium 4.2 mmol/L (3.5-5.1); Sodium 137 mmol/L (137-145)
[2019-04-16 06:16] LABS: Anisocytosis Slight; Basophils % (A) 0 %; Eosinophils % (A) 0 %; HCT 33.5 % (39.0-53.0); HGB 10.3 gm/dL (13.0-17.5); Hypochromasia Marked; INR 2.3 (<1.2); Lymphocytes # (A) 1.5 k/uL (1.0-4.8); Lymphocytes % (A) 11 %; MCH 26.2 pg (25.0-35.0); MCHC 30.6 g/dL (31.0-37.0); MCV 85.4 fL (80.0-100.0); Monocytes # (A) 0.4 k/uL (0-1.0); Monocytes % (A) 3 %; Neutrophils # (A) 11.4 k/uL (1.3-7.7); Neutrophils % (A) 85 %; Platelet Count 382 k/uL (150-450); Prothrombin Time 22.6 sec (9.0-12.0); RBC 3.92 m/uL (4.30-5.90); RDW 16.4 % (11.5-15.5); WBC 13.5 k/uL (3.8-10.6)
[2019-04-16] MEDS: LINAGLIPTIN 5 MG TABLET PO SCH (06:30)
[2019-04-16] MEDS: metFORMIN 500 MG TAB PO SCH (06:30)
[2019-04-16] MEDS: INSULIN ASPART (NovoLOG) 100 UNIT/ML VIAL SQ SCH ×4 (07:02→21:13)
[2019-04-16] MEDS: LIDOCAINE-D5W PMX 2G/250ML 2,000 MG in DEXTROSE/WATER 1 250ML.BAG IV SCH (07:04)
[2019-04-16 07:21] LABS: Glucose,Whole Blood 224 mg/dL (75-99)
[2019-04-16] MEDS: IPRATROPIUM-ALBUTEROL 3 ML NEB INHALATION SCH ×5 (08:39→19:54)
[2019-04-16] MEDS: BUDESONIDE 0.5 MG/2 ML NEBU INHALATION SCH ×3 (08:39→19:54)
[2019-04-16] MEDS ORDERED: ADENOSINE 3 MG/ML 2 ML VIAL IVP STA ×3 (09:24→09:44)
[2019-04-16] MEDS ORDERED: ADENOSINE 3 MG/ML 2 ML VIAL IVP ONE (09:46)
[2019-04-16] MEDS ORDERED: SODIUM CHLORIDE 0.9% 1,000 ML IV SCH (10:00)
[2019-04-16] MEDS: METOPROLOL TARTRATE 50 MG TAB PO SCH ×2 (10:04→20:36)
[2019-04-16] MEDS: ATORVASTATIN 40 MG TAB PO SCH (10:04)
[2019-04-16] MEDS ORDERED: DILTIAZEM 125 MG in SODIUM CHLORIDE 0.9% 100 ML IV SCH (10:15)
[2019-04-16] MEDS: BENZONATATE 100 MG CAP PO SCH ×3 (11:29→21:52)
[2019-04-16] MEDS: FUROSEMIDE 40 MG TAB PO SCH ×2 (11:30→11:44)
[2019-04-16] MEDS: LISINOPRIL 5 MG TAB PO SCH (11:44)
[2019-04-16 12:20] LABS: Glucose,Whole Blood 127 mg/dL (75-99)
--- NOTE | 2019-04-16 14:37 | P.PN ---
Subjective This is Dee Ledesma PA-C dictating a progress note on this patient The patient was interviewed and examined by me as well as by Dr. Howard Case discussed with Dr. Howard and he agrees with the plan of care IMPRESSION / ASSESSMENT: Wide complex tachycardia, right bundle branch like morphology, likely ventricular tachycardia versus atrial flutter with aberrancy Persistent cough, shortness of breath, PND and orthopnea, suggestive of possible CHF, recent echo showed normal LV size and function Diabetes History of PE, on Coumadin PLAN: Stop amiodarone and lidocaine Start IV Cardizem drip Plan for ablation on Friday with Dr. Howard Continue anticoagulation with Coumadin HPI/interval history Patient is a 73-year-old male with past medical history of diabetes and PE who presented with complaints of cough. Yesterday he went into a sustained wide Complex tachycardia with an atypical right bundle branch block morphology, concerning for ventricular tachycardia. He was given IV verapamil, IV metoprolol and started on an amiodarone drip. He was successfully cardioverted twice to sinus rhythm but then the tachycardia recurred. He was transferred to the ICU on an amiodarone drip. He was also started on a lidocaine drip. Overnight he converted to atrial flutter but then went back into the wide complex tachycardia. Patient seen and examined sitting in the chair. Bedside telemetry reveals he is still in the wide complex tachycardia. Rates around the 140s. Patient is asymptomatic. Denies any palpitations, dizziness, lightheadedness, shortness of breath or chest pain. Upon reviewing the EKG, there was a question on whether or not the wide complex tachycardia could be atrial flutter with aberrancy. He was given IV adenosine 12 mg and he remained in the tachycardia, rates remained in the 140s. He was given another dose of IV adenosine 18 mg. He again remained in the wide complex tachycardia and his rates remained in the 140s. Blood pressure remained stable throughout. EXAMINATION Temperature 97.6F, pulse 73, respirations 17, blood pressure 108/93, oxygen saturation 97% on room air Patient seen and examined sitting in the chair, in no acute distress Lungs are clear to auscultation bilaterally Heart sounds are regular and tachycardic No lower extremity edema No elevated JVD REVIEW OF LABS, ECG WBC 13.5, hemoglobin 10.3, platelets counts 382, potassium 4.2, BUN 28, creatinine 0.86 Objective - Vital Signs Vital signs: Vital Signs Temp 97.6 F 04/16/19 12:00 Pulse 73 04/16/19 14:00 Resp 17 04/16/19 14:00 BP 108/93 04/16/19 14:00 Pulse Ox 97 04/16/19 14:00 Intake & Output 04/15/19 04/16/19 04/16/19 18:59 06:59 18:59 Intake Total 1390 880 514.75 Output Total 800 700 0 Balance 590 180 514.75 Weight 124.2 kg Intake: IV 1150 600 280 0.9 bolus 1000 Sodium Chloride 0.9% 1, 80 000 ml @ 20 mls/hr IV . Q24H [facility] Rx#:[id number] Sodium Chloride 0.9% 1, 150 600 200 000 ml @ 50 mls/hr IV . Q20H [facility] Rx#:[id number] Intake, IV Titration 250 234.75 Amount Amiodarone 300 mg In 250 Dextrose 5% in Water 250 ml @ 0.5 MG/MIN 25 mls/hr IV .Q10H [facility] Rx#: [id number] Lidocaine-D5w Pmx 2G/ 234.75 250Ml 2,000 mg In Dextrose/Water 1 250ml. bag @ 2 MG/MIN 15 mls/hr IV .[id number] [facility] Rx#: [id number] Oral 240 30 Output: Urine 800 700 0 Other: Voiding Method Toilet Urinal Toilet Urinal Urinal # Voids 0 0 1 # Bowel Movements 1 - Labs CBC & Chem 7: 04/16/19 05:35 04/16/19 05:35 Labs: Abnormal Lab Results - Last 24 Hours (Table) 04/15/19 04/15/19 04/15/19 Range/Units 05:41 17:23 21:18 WBC (3.8-10.6) k/uL RBC (4.30-5.90) m/uL Hgb (13.0-17.5) gm/dL Hct (39.0-53.0) % MCHC (31.0-37.0) g/dL RDW (11.5-15.5) % Neutrophils # (1.3-7.7) k/uL PT (9.0-12.0) sec INR (<1.2) BUN (9-20) mg/dL Glucose (74-99) mg/dL POC Glucose (mg/dL) 361 H 317 H (75-99) mg/dL Calcium (8.4-10.2) mg/dL TSH 0.151 L (0.465-4.680) mIU/L 04/16/19 04/16/19 04/16/19 Range/Units 04:02 05:35 05:35 WBC 13.5 H (3.8-10.6) k/uL RBC 3.92 L (4.30-5.90) m/uL Hgb 10.3 L (13.0-17.5) gm/dL Hct 33.5 L (39.0-53.0) % MCHC 30.6 L (31.0-37.0) g/dL RDW 16.4 H (11.5-15.5) % Neutrophils # 11.4 H (1.3-7.7) k/uL PT 22.6 H (9.0-12.0) sec INR 2.3 H (<1.2) BUN (9-20) mg/dL Glucose (74-99) mg/dL POC Glucose (mg/dL) 234 H (75-99) mg/dL Calcium (8.4-10.2) mg/dL TSH (0.465-4.680) mIU/L 04/16/19 04/16/19 04/16/19 Range/Units 05:35 06:54 12:18 WBC (3.8-10.6) k/uL RBC (4.30-5.90) m/uL Hgb (13.0-17.5) gm/dL Hct (39.0-53.0) % MCHC (31.0-37.0) g/dL RDW (11.5-15.5) % Neutrophils # (1.3-7.7) k/uL PT (9.0-12.0) sec INR (<1.2) BUN 28 H (9-20) mg/dL Glucose 194 H (74-99) mg/dL POC Glucose (mg/dL) 224 H 127 H (75-99) mg/dL Calcium 8.1 L (8.4-10.2) mg/dL TSH (0.465-4.680) mIU/L Microbiology - Last 24 Hours (Table) 04/14/19 08:12 Urine Culture - Final Urine,Clean Catch Staphylococcus epidermidis
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
[2019-04-16 16:54] LABS: Glucose,Whole Blood 115 mg/dL (75-99)
--- NOTE | 2019-04-16 16:59 | P.PN ---
Subjective Progress Note Date: 04/16/19 Principal diagnosis: 73-year-old pleasant gentleman was admitted for a subacute to chronic cough cough improved. Etiology of cough is not clear patient is scheduled to undergo bronchoscopy today although his cough significantly improved shortness of breath improved patient was treated for multiple issues including gastroesophageal reflux disease cough irritant asthma and probable diastolic dysfunction heart failure patient was given Protonix, inhaled steroids and systemic steroids all the systems steroids will be discontinued because of his elevated blood sugars and the Lasix as well. Patient at this point of time is in sustained VT asymptomatic patient received a dose of verapamil followed by amiodarone bolus followed by synchronized cardioversion after which patient was briefly sinus rhythm and back into V. fib, receiving metoprolol at this time. Cardiology is managing his sustained VT. Patient to cardiac showed normal ejection fraction. Constitutional: Denied any fatigue denied any fever. Cardio vascular: denied any chest pain, palpitations Gastrointestinal denied any nausea vomiting Pulmonary: Denied any shortness of breath cough Neurologic denied any new focal deficits All inpatient medications were reviewed and appropriate changes in these medications as dictated in the interval history and assessment and plan. 04/16/2019 Patient is sitting up in bed in no acute distress with family at the bedside. Patient's states that he has no shortness of breath at this time and denies cough except for at night will have a cough that is dry in nature. Patient denies any chest pain or palpitations at this time. Patient denies any nausea or vomiting and is tolerating diet. Patient denies having short of breath with walking or moving around in the room. No acute overnight issues. Patient was recently discontinued on the IV lidocaine and IV Amiodarone drip and placed on Cardizem per cardiology. Patient appears to be more rate controlled on Cardizem at this time. Cardiology is following closely and planning for possible ablation on Friday. Guarded prognosis. REVIEW OF SYSTEMS: ENT: No diminished vision or hearing. CARDIOVASCULAR: Mentioned earlier. RESPIRATORY: As mentioned earlier. GI: No nausea, vomiting or diarrhea. : No dysuria or retention. NERVOUS SYSTEM: No numbness or weakness. HEMATOLOGY/ONCOLOGY: No history of anemia. ENDOCRINE: Reports diabetes CONSTITUTIONAL: As mentioned earlier. Active Medications Hydrocodone Bitart/Acetaminophen ([place] 10) 1 each PO Q4H PRN PRN Reason: Pain Last Admin: 04/13/19 22:02 Dose: 1 each Documented by: Albuterol/Ipratropium (Duoneb 0.5 Mg-3 Mg/3 Ml Soln) 3 ml INHALATION RT-QID [facility] Last Admin: 04/16/19 11:39 Dose: Not Given Documented by: Atorvastatin Calcium (Lipitor) 40 mg PO DAILY [facility] Last Admin: 04/16/19 10:04 Dose: 40 mg Documented by: Benzonatate (Tessalon Perles) 200 mg PO TID [facility] Last Admin: 04/16/19 11:29 Dose: 200 mg Documented by: Budesonide (Pulmicort) 0.5 mg INHALATION RT-BID [facility] Last Admin: 04/16/19 08:43 Dose: Not Given Documented by: Furosemide (Lasix) 40 mg PO BID@0900,1600 [facility] Last Admin: 04/16/19 11:44 Dose: Not Given Documented by: Glipizide (Glucotrol) 2.5 mg PO AC-BID [facility] Last Admin: 04/16/19 06:30 Dose: 2.5 mg Documented by: Ceftriaxone Sodium 1 gm/ (Sodium Chloride) 50 mls @ 100 mls/hr IVPB Q24HR [facility] Last Admin: 04/16/19 10:11 Dose: 100 mls/hr Documented by: Sodium Chloride (Saline 0.9%) 1,000 mls @ 20 mls/hr IV .Q24H [facility] Last Admin: 04/16/19 10:08 Dose: 20 mls/hr Documented by: Diltiazem HCl 125 mg/ Sodium (Chloride) 125 mls @ 10 mls/hr IV .[id number] [facility] Last Admin: 04/16/19 10:57 Dose: 10 mg/hr, 10 mls/hr Documented by: Insulin Aspart (Novolog) 0 unit SQ ACHS [facility]; Protocol Last Admin: 04/16/19 12:18 Dose: Not Given Documented by: Linagliptin (Tradjenta) 5 mg PO W/BRKT [facility] Last Admin: 04/16/19 06:30 Dose: 5 mg Documented by: Metformin HCl (Glucophage) 1,000 mg PO W/BRKFST [facility] Last Admin: 04/16/19 06:30 Dose: 1,000 mg Documented by: Metoprolol Tartrate (Lopressor) 50 mg PO BID [facility] Last Admin: 04/16/19 10:04 Dose: 50 mg Documented by: Pantoprazole Sodium (Protonix) 40 mg PO BID [facility] Promethazine HCl (Phenergan) 25 mg PO Q6HR PRN PRN Reason: Cough Warfarin Sodium (Coumadin) 2.5 mg PO HS [facility] Last Admin: 04/15/19 21:08 Dose: 2.5 mg Documented by: Objective - Vital Signs Vital signs: Vital Signs Temp 97.6 F 04/16/19 12:00 Pulse 73 04/16/19 14:00 Resp 17 04/16/19 14:00 BP 108/93 04/16/19 14:00 Pulse Ox 97 04/16/19 14:00 Intake & Output 04/15/19 04/16/19 04/16/19 18:59 06:59 18:59 Intake Total 1390 880 514.75 Output Total 800 700 0 Balance 590 180 514.75 Weight 124.2 kg Intake: IV 1150 600 280 0.9 bolus 1000 Sodium Chloride 0.9% 1, 80 000 ml @ 20 mls/hr IV . Q24H [facility] Rx#:[id number] Sodium Chloride 0.9% 1, 150 600 200 000 ml @ 50 mls/hr IV . Q20H [facility] Rx#:[id number] Intake, IV Titration 250 234.75 Amount Amiodarone 300 mg In 250 Dextrose 5% in Water 250 ml @ 0.5 MG/MIN 25 mls/hr IV .Q10H [facility] Rx#: [id number] Lidocaine-D5w Pmx 2G/ 234.75 250Ml 2,000 mg In Dextrose/Water 1 250ml. bag @ 2 MG/MIN 15 mls/hr IV .[id number] [facility] Rx#: [id number] Oral 240 30 Output: Urine 800 700 0 Other: Voiding Method Toilet Urinal Toilet Urinal Urinal # Voids 0 0 1 # Bowel Movements 1 - Exam GENERAL: The patient is alert and oriented x3, not in any acute distress. Obese. Blood pressure is 107/67, oxygen saturation is 96% on room air, pulse is 142, respirations are 22, temp is 97.6F. HEENT: Pupils are round and equally reacting to light. EOMI. No scleral icterus. No conjunctival pallor. Normocephalic, atraumatic. He does have pharyngeal erythema. No thyromegaly. CARDIOVASCULAR: Patient is in sustained VT undergoing above-mentioned treatment at this point of time PULMONARY: Chest is clear to auscultation, no wheezing or crackles. ABDOMEN: Soft, nontender, nondistended, normoactive bowel sounds. No palpable organomegaly. MUSCULOSKELETAL: No joint swelling or deformity. EXTREMITIES: No cyanosis, clubbing, or pedal edema. NEUROLOGICAL: Gross neurological examination did not reveal any focal deficits. SKIN: No rashes. - Labs CBC & Chem 7: 04/16/19 05:35 04/16/19 05:35 Labs: Abnormal Lab Results - Last 24 Hours (Table) 04/15/19 04/15/19 04/15/19 Range/Units 05:41 17:23 21:18 WBC (3.8-10.6) k/uL RBC (4.30-5.90) m/uL Hgb (13.0-17.5) gm/dL Hct (39.0-53.0) % MCHC (31.0-37.0) g/dL RDW (11.5-15.5) % Neutrophils # (1.3-7.7) k/uL PT (9.0-12.0) sec INR (<1.2) BUN (9-20) mg/dL Glucose (74-99) mg/dL POC Glucose (mg/dL) 361 H 317 H (75-99) mg/dL Calcium (8.4-10.2) mg/dL TSH 0.151 L (0.465-4.680) mIU/L 04/16/19 04/16/19 04/16/19 Range/Units 04:02 05:35 05:35 WBC 13.5 H (3.8-10.6) k/uL RBC 3.92 L (4.30-5.90) m/uL Hgb 10.3 L (13.0-17.5) gm/dL Hct 33.5 L (39.0-53.0) % MCHC 30.6 L (31.0-37.0) g/dL RDW 16.4 H (11.5-15.5) % Neutrophils # 11.4 H (1.3-7.7) k/uL PT 22.6 H (9.0-12.0) sec INR 2.3 H (<1.2) BUN (9-20) mg/dL Glucose (74-99) mg/dL POC Glucose (mg/dL) 234 H (75-99) mg/dL Calcium (8.4-10.2) mg/dL TSH (0.465-4.680) mIU/L 04/16/19 04/16/19 04/16/19 Range/Units 05:35 06:54 12:18 WBC (3.8-10.6) k/uL RBC (4.30-5.90) m/uL Hgb (13.0-17.5) gm/dL Hct (39.0-53.0) % MCHC (31.0-37.0) g/dL RDW (11.5-15.5) % Neutrophils # (1.3-7.7) k/uL PT (9.0-12.0) sec INR (<1.2) BUN 28 H (9-20) mg/dL Glucose 194 H (74-99) mg/dL POC Glucose (mg/dL) 224 H 127 H (75-99) mg/dL Calcium 8.1 L (8.4-10.2) mg/dL TSH (0.465-4.680) mIU/L Microbiology - Last 24 Hours (Table) 04/14/19 08:12 Urine Culture - Final Urine,Clean Catch Staphylococcus epidermidis Assessment and Plan Assessment: -Chronic cough: Possibility of gastroesophageal reflux disease, patient is on Protonix, cough variant asthma is a possibility. Patient doesn't appear to have any bacterial bronchitis will not require any more antibiotics doesn't have any pneumonia at this time. Possibly of CHF is low. Patient has significant symptomatic improvement since yesterday with the above-mentioned the treatments and plan. Possibly of diastolic dysfunction cannot be excluded, IV steroids will be discontinued because of his highly elevated blood sugars -Sustained VT: Patient is undergoing above-mentioned treatment and cardiology is managing this as mentioned above -shortness of breath: I believe it's secondary to his obesity and the restrictive lung disease. Patient does have elevated BNP but doesn't have any JVD or pedal edema patient had a normal ejection fraction my suspicion of CHF is low patient did receive Lasix IV and his shortness of breath did improve, patient will be switched to oral steroids -Diabetes mellitus2: Patient will be resumed on his home regimen will be any to monitor the blood sugars. Which is significantly elevated blood because of her systemic steroids will treat with the sliding scale insulin suspect steroids will be discontinued continue the inhaled steroids -Hyperlipidemia -History of PE for which patient is on Coumadin and do not have any INR available we'll obtain INR. INR is 2.3 -DVT prophylaxis early ambulation Recommendations and discussion: Recommend continue current medications, management, and symptomatic treatment. Will continue to monitor closely. Cardiology and pulmonary are following closely. Patient is currently on a Cardizem drip and is currently off the amiodarone drip and lidocaine drip. Patient underwent cardioversion twice yesterday and briefly converted but seconds later went back into episodes of recurrent ventricular tachycardia. Per cardiology recommendations the plan is for possible EP study and VT ablation on Friday if heart rate isn't better controlled with medications. Extremely guarded prognosis. Further recommendations to follow.
[2019-04-16] MEDS: PANTOPRAZOLE 40 MG TABLET PO SCH (20:35)
[2019-04-16 20:54] LABS: Glucose,Whole Blood 277 mg/dL (75-99)
[2019-04-17 05:33] LABS: Anisocytosis Slight; Basophils # (A) 0.1 k/uL (0-0.2); Basophils % (A) 1 %; Eosinophils % (A) 0 %; HCT 35.4 % (39.0-53.0); HGB 11.1 gm/dL (13.0-17.5); Hypochromasia Marked; Lymphocytes # (A) 1.1 k/uL (1.0-4.8); Lymphocytes % (A) 10 %; MCH 26.4 pg (25.0-35.0); MCHC 31.3 g/dL (31.0-37.0); MCV 84.3 fL (80.0-100.0); Mean Platelet Volume 5.7; Monocytes # (A) 0.6 k/uL (0-1.0); Monocytes % (A) 5 %; Neutrophils # (A) 9.1 k/uL (1.3-7.7); Neutrophils % (A) 83 %; Platelet Count 327 k/uL (150-450); RDW 16.4 % (11.5-15.5); WBC 10.9 k/uL (3.8-10.6)
[2019-04-17 05:39] LABS: Prothrombin Time 28.6 sec (9.0-12.0)
[2019-04-17 05:52] LABS: African American GFR (CKD) >90 (>60 ml/min/1.73 sqM); Anion Gap 7 mmol/L; Blood Urea Nitrogen 24 mg/dL (9-20); Calcium 8.6 mg/dL (8.4-10.2); Carbon Dioxide 24 mmol/L (22-30); Chloride 106 mmol/L (98-107); Glucose 152 mg/dL (74-99); Magnesium 1.4 mg/dL (1.6-2.3); Potassium 4.1 mmol/L (3.5-5.1); Sodium 137 mmol/L (137-145)
[2019-04-17] MEDS ORDERED: Magnesium Replacement Protocol 1 EACH MISC MISCELLANE PRN (06:13)
[2019-04-17 06:59] LABS: Glucose,Whole Blood 234 mg/dL (75-99)
[2019-04-17] MEDS: MAGNESIUM SULFATE-D5W PMX 1 GM in DEXTROSE/WATER 1 100ML.BAG IVPB SCH ×3 (07:05→12:10)
[2019-04-17] MEDS: INSULIN ASPART (NovoLOG) 100 UNIT/ML VIAL SQ SCH ×6 (07:06→21:06)
[2019-04-17] MEDS: metFORMIN 500 MG TAB PO SCH (07:06)
[2019-04-17] MEDS: LINAGLIPTIN 5 MG TABLET PO SCH (07:06)
[2019-04-17] MEDS: BUDESONIDE 0.5 MG/2 ML NEBU INHALATION SCH ×2 (08:02→19:33)
[2019-04-17] MEDS: IPRATROPIUM-ALBUTEROL 3 ML NEB INHALATION SCH ×4 (08:02→19:33)
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
[2019-04-17] MEDS: PANTOPRAZOLE 40 MG TABLET PO SCH ×2 (10:20→21:06)
[2019-04-17] MEDS: ATORVASTATIN 40 MG TAB PO SCH (10:20)
[2019-04-17] MEDS: METOPROLOL TARTRATE 50 MG TAB PO SCH ×2 (10:20→21:06)
[2019-04-17] MEDS: BENZONATATE 100 MG CAP PO SCH ×4 (10:29→23:09)
[2019-04-17 12:05] LABS: Glucose,Whole Blood 317 mg/dL (75-99)
--- NOTE | 2019-04-17 15:20 | PN ---
PROGRESS NOTE DATE OF SERVICE: 04/17/2019 This 73-year-old gentleman who was admitted with a chronic cough also had sustained ventricular tachycardia. The patient was evaluated by Cardiology for planning of possible ablation later. Otherwise, the patient is on multiple drips, including amiodarone. Patient is being closely monitored. Past medical history reviewed. REVIEW OF SYSTEMS: CARDIOVASCULAR SYSTEM: As mentioned earlier. RESPIRATORY SYSTEM: As mentioned earlier. GI: No nausea, vomiting. : No dysuria or retention. NERVOUS SYSTEM: No numbness, weakness. CURRENT MEDICATIONS: Reviewed. They include: 1. Hebo 10 mg q.4. 2. DuoNeb q.i.d. and p.r.n. 3. Lipitor 40 mg daily. 4. Tessalon Perles. 5. Pulmicort 0.5 b.i.d. 6. Rocephin 1 gram daily. 7. Glucotrol 2.5 b.i.d. 8. NovoLog scale. 9. Tradjenta 5 mg with breakfast. 10.Glucophage 1000 mg daily. 11.Lopressor 50 mg p.o. b.i.d. 12.Protonix 40 mg p.o. b.i.d. 13.Phenergan 25 mg p.r.n. PHYSICAL EXAMINATION: Patient is alert, oriented x3. Pulse is 90, blood pressure 128/60, respiration 19, temperature 97.8, pulse ox 94% on room air. HEENT: Conjunctivae normal. NECK: No jugular venous distention. CARDIOVASCULAR SYSTEM: S1, S2 muffled. RESPIRATORY SYSTEM: Breath sounds diminished at the bases. A few scattered rhonchi and crackles. ABDOMEN: Soft, non-tender. No mass palpable. LEGS: No edema. No swelling. NERVOUS SYSTEM: No focal deficit. LABS: WBC 10.9, hemoglobin 11.1. Magnesium is 1.4. ASSESSMENT: 1. Acute sustained ventricular tachycardia. 2. Subacute cough of undetermined origin. 3. Atrial flutter with varying block. 4. Remote history of pulmonary embolism. 5. Shortness of breath. 6. Diabetes mellitus, type 2. 7. Hyperlipidemia. 8. Obesity with body mass index of 39.3. 9. Anemia of undetermined origin. 10.Diabetes mellitus, type 2, uncontrolled with hyperglycemia. 11.Hypomagnesemia. RECOMMENDATIONS AND DISCUSSION: In this 73-year-old gentleman who presented with multiple medical issues, we will monitor the patient closely, continue the current medications, continue with symptomatic treatment. As far as sugars are concerned, they are widely fluctuating. I would recommend adding pre-meal insulin about 3 units and hold if the Accu-Chek is less 120. Continue with scale, which is a high-dose scale which goes up to 400. Otherwise, continue to monitor. The patient might need further adjustment of the anti-diabetic medications, probably as an outpatient. Otherwise, supplement magnesium. Repeat labs. Closely follow with multiple consultants. See orders for further details. Prognosis is guarded. Further recommendations to follow. MMODL / IJN: [id number] /
--- NOTE | 2019-04-17 15:45 | P.PN ---
<Dee Ledesma - Last Filed: 04/17/19 15:34> Subjective This is Dee Ledesma PA-C dictating a progress note on this patient The patient was interviewed and examined by me as well as by Dr. Howard Case discussed with Dr. Howard and he agrees with the plan of care IMPRESSION / ASSESSMENT: Wide complex tachycardia with a right bundle branch morphology, likely ventricular tachycardia Paroxysmal atrial flutter, currently in sinus rhythm Persistent cough, shortness of breath, PND and orthopnea suggestive of possible CHF Recent echo showing normal LV size and function Diabetes History of PE, Coumadin currently on hold for EP study Hypomagnesemia PLAN: Hold Coumadin until INR reaches 2, then start heparin Plan for EP study and ablation on Friday Magnesium is being replaced HPI/interval history Patient is a 73-year-old male with past medical history of diabetes and PE who presented with complaints of cough. He was admitted for further evaluation. While on the medical floor, he was found to be in an nonsustained wide complex tachycardia. He underwent successful electrical cardioversion twice and the t achycardia recurred shortly after. The tachycardia did not terminate with IV verapamil, IV metoprolol as well as amiodarone and a lidocaine drip. He was transferred to the ICU. He was placed on an amiodarone drip as well as a lidocaine drip. He went into flutter and then back into the wide complex tachycardia. The amiodarone and lidocaine were discontinued and he was started on IV Cardizem. Overnight he slipped in and out of atrial flutter and the wide complex tachycardia. Rhythm strips reviewed, revealed underlying atrial tachycardia with runs of nonsustained ventricular tachycardia. His IV Cardizem was stopped and he later converted into sinus rhythm. Patient seen and examined sitting in his chair. Bedside telemetry reveals he is in sinus rhythm with frequent PVCs. Patient denies any symptoms, no chest pain, shortness of breath, palpitations or dizziness. EXAMINATION Temperature 97.8F, pulse 90, respirations 18, blood pressure 128/60, oxygen saturation 95% on room air Patient seen and examined sitting up in his chair, in no acute distress Lungs clear to auscultation bilaterally Heart slightly irregular secondary to frequent PVCs, no murmurs No lower extremity edema REVIEW OF LABS, ECG WBC 10.9, hemoglobin 11.1, platelet 327, potassium 4.1, BUN 24, creatinine 0.88, magnesium 1.4 Objective - Vital Signs Vital signs: Vital Signs Temp 97.8 F 04/17/19 12:00 Pulse 81 04/17/19 14:00 Resp 16 04/17/19 14:00 BP 108/58 04/17/19 14:00 Pulse Ox 97 04/17/19 14:00 Intake & Output 04/16/19 04/17/19 04/17/19 18:59 06:59 18:59 Intake Total 594.75 422 470 Output Total 0 975 600 Balance 594.75 -553 -130 Weight 124.3 kg Intake: IV 360 422 470 Magnesium Sulfate-D5w Pmx 400 1 gm In Dextrose/Water 1 100ml.bag @ 100 mls/hr IVPB Q1H [facility] Rx#: [id number] Sodium Chloride 0.9% 1, 160 422 20 000 ml @ 20 mls/hr IV . Q24H [facility] Rx#:[id number] Sodium Chloride 0.9% 1, 200 000 ml @ 50 mls/hr IV . Q20H [facility] Rx#:[id number] cefTRIAXone 1 gm In 50 Sodium Chloride 0.9% 50 ml @ 100 mls/hr IVPB Q24HR [facility] Rx#:[id number] Intake, IV Titration 234.75 Amount Lidocaine-D5w Pmx 2G/ 234.75 250Ml 2,000 mg In Dextrose/Water 1 250ml. bag @ 2 MG/MIN 15 mls/hr IV .[id number] [facility] Rx#: [id number] Output: Urine 0 975 600 Stool 0 Other: Voiding Method Toilet Toilet Toilet Urinal Urinal Urinal # Voids 0 0 1 # Bowel Movements 1 1 0 - Labs CBC & Chem 7: 04/17/19 04:55 04/17/19 04:55 Labs: Abnormal Lab Results - Last 24 Hours (Table) 04/16/19 04/16/19 04/17/19 Range/Units 16:52 20:52 04:55 WBC 10.9 H (3.8-10.6) k/uL RBC 4.20 L (4.30-5.90) m/uL Hgb 11.1 L (13.0-17.5) gm/dL Hct 35.4 L (39.0-53.0) % RDW 16.4 H (11.5-15.5) % Neutrophils # 9.1 H (1.3-7.7) k/uL PT (9.0-12.0) sec INR (<1.2) BUN (9-20) mg/dL Glucose (74-99) mg/dL POC Glucose (mg/dL) 115 H 277 H (75-99) mg/dL Magnesium (1.6-2.3) mg/dL 04/17/19 04/17/19 04/17/19 Range/Units 04:55 04:55 06:57 WBC (3.8-10.6) k/uL RBC (4.30-5.90) m/uL Hgb (13.0-17.5) gm/dL Hct (39.0-53.0) % RDW (11.5-15.5) % Neutrophils # (1.3-7.7) k/uL PT 28.6 H (9.0-12.0) sec INR 3.0 H (<1.2) BUN 24 H (9-20) mg/dL Glucose 152 H (74-99) mg/dL POC Glucose (mg/dL) 234 H (75-99) mg/dL Magnesium 1.4 L (1.6-2.3) mg/dL 04/17/19 Range/Units 12:03 WBC (3.8-10.6) k/uL RBC (4.30-5.90) m/uL Hgb (13.0-17.5) gm/dL Hct (39.0-53.0) % RDW (11.5-15.5) % Neutrophils # (1.3-7.7) k/uL PT (9.0-12.0) sec INR (<1.2) BUN (9-20) mg/dL Glucose (74-99) mg/dL POC Glucose (mg/dL) 317 H (75-99) mg/dL Magnesium (1.6-2.3) mg/dL Microbiology - Last 24 Hours (Table) 04/14/19 08:12 Urine Culture - Final Urine,Clean Catch Staphylococcus epidermidis <Herberth Howard - Last Filed: 04/17/19 21:10> Subjective Patient remains in atrial flutter Continue tachycardia terminated Spontaneously Patient's TSH is suppressed, to be addressed by primary Medical team Objective - Vital Signs Vital signs: Vital Signs Temp 97.9 F 04/17/19 20:00 Pulse 98 04/17/19 20:00 Resp 20 04/17/19 20:00 BP 114/57 04/17/19 20:00 Pulse Ox 94 L 04/17/19 20:00 Intake & Output 04/17/19 04/17/19 04/18/19 06:59 18:59 06:59 Intake Total 422 470 Output Total 975 600 300 Balance -553 -130 -300 Weight 124.3 kg Intake: IV 422 470 Magnesium Sulfate-D5w Pmx 400 1 gm In Dextrose/Water 1 100ml.bag @ 100 mls/hr IVPB Q1H [facility] Rx#: [id number] Sodium Chloride 0.9% 1, 422 20 000 ml @ 20 mls/hr IV . Q24H [facility] Rx#:[id number] cefTRIAXone 1 gm In 50 Sodium Chloride 0.9% 50 ml @ 100 mls/hr IVPB Q24HR [facility] Rx#:[id number] Output: Urine 975 600 300 Stool 0 Other: Voiding Method Toilet Toilet Urinal Urinal # Voids 0 1 1 # Bowel Movements 1 0 - Labs CBC & Chem 7: 04/17/19 04:55 04/17/19 04:55 Labs: Abnormal Lab Results - Last 24 Hours (Table) 04/17/19 04/17/19 04/17/19 Range/Units 04:55 04:55 04:55 WBC 10.9 H (3.8-10.6) k/uL RBC 4.20 L (4.30-5.90) m/uL Hgb 11.1 L (13.0-17.5) gm/dL Hct 35.4 L (39.0-53.0) % RDW 16.4 H (11.5-15.5) % Neutrophils # 9.1 H (1.3-7.7) k/uL PT 28.6 H (9.0-12.0) sec INR 3.0 H (<1.2) BUN 24 H (9-20) mg/dL Glucose 152 H (74-99) mg/dL POC Glucose (mg/dL) (75-99) mg/dL Magnesium 1.4 L (1.6-2.3) mg/dL 04/17/19 04/17/19 04/17/19 Range/Units 06:57 12:03 17:08 WBC (3.8-10.6) k/uL RBC (4.30-5.90) m/uL Hgb (13.0-17.5) gm/dL Hct (39.0-53.0) % RDW (11.5-15.5) % Neutrophils # (1.3-7.7) k/uL PT (9.0-12.0) sec INR (<1.2) BUN (9-20) mg/dL Glucose (74-99) mg/dL POC Glucose (mg/dL) 234 H 317 H 152 H (75-99) mg/dL Magnesium (1.6-2.3) mg/dL 04/17/19 Range/Units 21:02 WBC (3.8-10.6) k/uL RBC (4.30-5.90) m/uL Hgb (13.0-17.5) gm/dL Hct (39.0-53.0) % RDW (11.5-15.5) % Neutrophils # (1.3-7.7) k/uL PT (9.0-12.0) sec INR (<1.2) BUN (9-20) mg/dL Glucose (74-99) mg/dL POC Glucose (mg/dL) 190 H (75-99) mg/dL Magnesium (1.6-2.3) mg/dL
[2019-04-17 17:10] LABS: Glucose,Whole Blood 152 mg/dL (75-99)
[2019-04-17] MEDS: FUROSEMIDE 40 MG TAB PO SCH (17:36)
[2019-04-17] MEDS: PANTOPRAZOLE 40 MG/10 ML VIAL IVP SCH (17:36)
[2019-04-17 21:04] LABS: Glucose,Whole Blood 190 mg/dL (75-99)
[2019-04-18 05:14] LABS: INR 1.9 (<1.2); Prothrombin Time 18.6 sec (9.0-12.0)
[2019-04-18 06:14] LABS: Anisocytosis Slight; HCT 34.7 % (39.0-53.0); HGB 10.2 gm/dL (13.0-17.5); Hypochromasia Marked; MCH 25.5 pg (25.0-35.0); MCHC 29.2 g/dL (31.0-37.0); MCV 87.2 fL (80.0-100.0); Platelet Count 323 k/uL (150-450); RBC 3.98 m/uL (4.30-5.90); RDW 16.9 % (11.5-15.5); WBC 12.2 k/uL (3.8-10.6)
[2019-04-18 06:30] LABS: African American GFR (CKD) >90 (>60 ml/min/1.73 sqM); Anion Gap 8 mmol/L; Blood Urea Nitrogen 17 mg/dL (9-20); Calcium 8.5 mg/dL (8.4-10.2); Carbon Dioxide 22 mmol/L (22-30); Chloride 105 mmol/L (98-107); Glucose 259 mg/dL (74-99); Potassium 4.4 mmol/L (3.5-5.1); Sodium 135 mmol/L (137-145)
[2019-04-18] MEDS ORDERED: HEPARIN SODIUM,PORCINE 5,000 UNIT/ML 1 ML VIAL IV PRN (06:54)
[2019-04-18 07:04] LABS: Glucose,Whole Blood 230 mg/dL (75-99)
[2019-04-18] MEDS: INSULIN ASPART (NovoLOG) 100 UNIT/ML VIAL SQ SCH ×7 (07:15→21:36)
[2019-04-18] MEDS: LINAGLIPTIN 5 MG TABLET PO SCH (07:15)
[2019-04-18] MEDS: metFORMIN 500 MG TAB PO SCH (07:15)
[2019-04-18] MEDS: MAGNESIUM SULFATE-D5W PMX 1 GM in DEXTROSE/WATER 1 100ML.BAG IVPB SCH ×2 (07:32→08:19)
[2019-04-18] MEDS: IPRATROPIUM-ALBUTEROL 3 ML NEB INHALATION SCH (08:01)
[2019-04-18] MEDS: BUDESONIDE 0.5 MG/2 ML NEBU INHALATION SCH ×2 (08:01→20:51)
[2019-04-18] MEDS: METOPROLOL TARTRATE 50 MG TAB PO SCH ×2 (08:34→21:36)
[2019-04-18] MEDS: HEPARIN SOD,PORK IN 0.45% NACL 25,000 UNIT in 0.45% NACL 1 250ML.BAG IV SCH (08:34)
[2019-04-18] MEDS: ATORVASTATIN 40 MG TAB PO SCH (08:34)
[2019-04-18] MEDS: BENZONATATE 100 MG CAP PO SCH (08:34)
[2019-04-18] MEDS: PANTOPRAZOLE 40 MG TABLET PO SCH ×2 (08:34→21:36)
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
[2019-04-18 11:32] LABS: Glucose,Whole Blood 257 mg/dL (75-99)
[2019-04-18] MEDS: PROMETHAZINE 25 MG TAB PO PRN (12:43)
--- NOTE | 2019-04-18 13:45 | P.PN ---
<Dee Ledesma - Last Filed: 04/18/19 13:45> Subjective This is Dee Ledesma PA-C dictating a progress note on this patient The patient was interviewed and examined by me as well as by Dr. Howard Case discussed with Dr. Howard and he agrees with the plan of care IMPRESSION / ASSESSMENT: Wide complex tachycardia with a right bundle branch morphology, likely ventricular tachycardia Paroxysmal atrial flutter, currently in sinus rhythm Persistent cough, shortness of breath, PND and orthopnea suggestive of possible CHF Recent echo showing normal LV size and function Diabetes History of PE, Coumadin currently on hold for EP study Hypomagnesemia PLAN: Continue heparin Plan for EP study and ablation on Friday HPI/interval history Patient is a 73-year-old male with past medical history of diabetes and PE who presented with complaints of cough. He was admitted for further evaluation. While on the medical floor, he was found to be in an nonsustained wide complex tachycardia. He underwent successful electrical cardioversion twice and the tachycardia recurred shortly after. The tachycardia did not terminate with IV verapamil, IV metoprolol as well as amiodarone and a lidocaine drip. He was transferred to the ICU. He was placed on an amiodarone drip as well as a lidocaine drip. He went into flutter and then back into the wide complex tachycardia. The amiodarone and lidocaine were discontinued and he was started on IV Cardizem. Overnight he slipped in and out of atrial flutter and the wide complex tachycardia. Rhythm strips reviewed, revealed underlying atrial tachycardia with runs of nonsustained ventricular tachycardia. His IV Cardizem was stopped and he later converted into sinus rhythm. Patient seen and examined sitting in his chair. Bedside telemetry reveals he is still in sinus rhythm with frequent PVCs. Patient expresses is fresh rations that he is not sleeping well. Feels tired and fatigued. Denies any chest pain, palpitations or shortness of breath. No dizziness. Still has a cough. EXAMINATION Patient is afebrile, pulse 80, respirations 14, blood pressure 117/68, oxygen saturation 95% on room air Patient seen and examined sitting up in his chair, in no acute distress Lungs clear to auscultation bilaterally Heart slightly irregular secondary to frequent PVCs, no murmurs No lower extremity edema REVIEW OF LABS, ECG Potassium 4.4, BUN 17, creatinine 0.87, magnesium 1.7 Objective - Vital Signs Vital signs: Vital Signs Temp 98.6 F 04/18/19 08:00 Pulse 80 04/18/19 12:00 Resp 14 04/18/19 12:00 BP 117/68 04/18/19 12:00 Pulse Ox 95 04/18/19 12:00 Intake & Output 04/17/19 04/18/19 04/18/19 18:59 06:59 18:59 Intake Total 470 700 Output Total 600 700 202 Balance -130 -700 498 Intake: IV 470 200 Magnesium Sulfate-D5w Pmx 400 100 1 gm In Dextrose/Water 1 100ml.bag @ 100 mls/hr IVPB Q1H [facility] Rx#: [id number] Sodium Chloride 0.9% 1, 20 000 ml @ 20 mls/hr IV . Q24H [facility] Rx#:[id number] cefTRIAXone 1 gm In 50 100 Sodium Chloride 0.9% 50 ml @ 100 mls/hr IVPB Q24HR [facility] Rx#:[id number] Oral 500 Output: Urine 600 700 202 Stool 0 Other: Voiding Method Toilet Toilet Toilet Urinal Urinal Urinal # Voids 1 0 1 # Bowel Movements 0 - Labs CBC & Chem 7: 04/18/19 04:48 04/18/19 04:48 Labs: Abnormal Lab Results - Last 24 Hours (Table) 04/17/19 04/17/19 04/18/19 Range/Units 17:08 21:02 04:48 WBC 12.2 H (3.8-10.6) k/uL RBC 3.98 L (4.30-5.90) m/uL Hgb 10.2 L (13.0-17.5) gm/dL Hct 34.7 L (39.0-53.0) % MCHC 29.2 L (31.0-37.0) g/dL RDW 16.9 H (11.5-15.5) % PT (9.0-12.0) sec INR (<1.2) APTT (22.0-30.0) sec Sodium (137-145) mmol/L Glucose (74-99) mg/dL POC Glucose (mg/dL) 152 H 190 H (75-99) mg/dL 04/18/19 04/18/19 04/18/19 Range/Units 04:48 04:51 04:51 WBC (3.8-10.6) k/uL RBC (4.30-5.90) m/uL Hgb (13.0-17.5) gm/dL Hct (39.0-53.0) % MCHC (31.0-37.0) g/dL RDW (11.5-15.5) % PT 18.6 H (9.0-12.0) sec INR 1.9 H (<1.2) APTT 30.8 H (22.0-30.0) sec Sodium 135 L (137-145) mmol/L Glucose 259 H (74-99) mg/dL POC Glucose (mg/dL) (75-99) mg/dL 04/18/19 04/18/19 Range/Units 07:03 11:30 WBC (3.8-10.6) k/uL RBC (4.30-5.90) m/uL Hgb (13.0-17.5) gm/dL Hct (39.0-53.0) % MCHC (31.0-37.0) g/dL RDW (11.5-15.5) % PT (9.0-12.0) sec INR (<1.2) APTT (22.0-30.0) sec Sodium (137-145) mmol/L Glucose (74-99) mg/dL POC Glucose (mg/dL) 230 H 257 H (75-99) mg/dL <Herberth Howard - Last Filed: 04/18/19 14:01> Subjective Patient sitting comfortably in chair Denies any fever chills Slightly elevated white count noted INR is below 2 and heparin has been initiated Slightly low magnesium and IV magnesium is being administered He is on low-dose beta blockers No arrhythmias so far Tomorrow I plan to proceed with an EP study and ablation Patient will remain nothing by mouth after midnight Objective - Vital Signs Vital signs: Vital Signs Temp 98.6 F 04/18/19 08:00 Pulse 80 04/18/19 12:00 Resp 14 04/18/19 12:00 BP 117/68 04/18/19 12:00 Pulse Ox 95 04/18/19 12:00 Intake & Output 04/17/19 04/18/19 04/18/19 18:59 06:59 18:59 Intake Total 470 700 Output Total 600 700 202 Balance -130 -700 498 Intake: IV 470 200 Magnesium Sulfate-D5w Pmx 400 100 1 gm In Dextrose/Water 1 100ml.bag @ 100 mls/hr IVPB Q1H [facility] Rx#: [id number] Sodium Chloride 0.9% 1, 20 000 ml @ 20 mls/hr IV . Q24H [facility] Rx#:[id number] cefTRIAXone 1 gm In 50 100 Sodium Chloride 0.9% 50 ml @ 100 mls/hr IVPB Q24HR [facility] Rx#:[id number] Oral 500 Output: Urine 600 700 202 Stool 0 Other: Voiding Method Toilet Toilet Toilet Urinal Urinal Urinal # Voids 1 0 1 # Bowel Movements 0 - Labs CBC & Chem 7: 04/18/19 04:48 04/18/19 04:48 Labs: Abnormal Lab Results - Last 24 Hours (Table) 04/17/19 04/17/19 04/18/19 Range/Units 17:08 21:02 04:48 WBC 12.2 H (3.8-10.6) k/uL RBC 3.98 L (4.30-5.90) m/uL Hgb 10.2 L (13.0-17.5) gm/dL Hct 34.7 L (39.0-53.0) % MCHC 29.2 L (31.0-37.0) g/dL RDW 16.9 H (11.5-15.5) % PT (9.0-12.0) sec INR (<1.2) APTT (22.0-30.0) sec Sodium (137-145) mmol/L Glucose (74-99) mg/dL POC Glucose (mg/dL) 152 H 190 H (75-99) mg/dL 04/18/19 04/18/19 04/18/19 Range/Units 04:48 04:51 04:51 WBC (3.8-10.6) k/uL RBC (4.30-5.90) m/uL Hgb (13.0-17.5) gm/dL Hct (39.0-53.0) % MCHC (31.0-37.0) g/dL RDW (11.5-15.5) % PT 18.6 H (9.0-12.0) sec INR 1.9 H (<1.2) APTT 30.8 H (22.0-30.0) sec Sodium 135 L (137-145) mmol/L Glucose 259 H (74-99) mg/dL POC Glucose (mg/dL) (75-99) mg/dL 04/18/19 04/18/19 Range/Units 07:03 11:30 WBC (3.8-10.6) k/uL RBC (4.30-5.90) m/uL Hgb (13.0-17.5) gm/dL Hct (39.0-53.0) % MCHC (31.0-37.0) g/dL RDW (11.5-15.5) % PT (9.0-12.0) sec INR (<1.2) APTT (22.0-30.0) sec Sodium (137-145) mmol/L Glucose (74-99) mg/dL POC Glucose (mg/dL) 230 H 257 H (75-99) mg/dL
[2019-04-18] MEDS ORDERED: MAGNESIUM SULFATE-D5W PMX 1 GM in DEXTROSE/WATER 1 100ML.BAG IVPB ONE (14:00)
[2019-04-18 16:52] LABS: Glucose,Whole Blood 92 mg/dL (75-99)
--- NOTE | 2019-04-18 18:57 | PN ---
PROGRESS NOTE DATE OF SERVICE: 04/18/2019. This 73-year-old gentleman who was admitted with chronic cough also had sustained ventricular tachycardia. The patient is being evaluated by Cardiology. Blood sugar slightly elevated. Patient also complaining of some cough also at this time. The previous chest x-ray which was done on 04/13/2019 which was reviewed personally by me showed some increased bronchovascular markings. The patient is slated to have EP study and possible ablation on Friday. Magnesium is also being replaced by Cardiology. PAST MEDICAL HISTORY: Past medical history reviewed. REVIEW OF SYSTEMS: Cardiovascular system: No angina or palpitations. Respiration as mentioned earlier. GI no nausea or vomiting. no dysuria. Nervous system: No focal deficits. CURRENT MED: Reviewed and include: 1. Reeds 10 mg q.4 p.r.n. 2. Lipitor 40 mg p.o. daily. 3. Pulmicort 2.5 mg b.i.d. 4. Glucotrol 2.5 mg b.i.d. 5. Heparin b.i.d. 6. NovoLog scale. 7. Tradjenta 5 mg p.o. with breakfast. 8. Glucophage 1000 mg with breakfast. 9. Lopressor 50 mg p.o. b.i.d. 10.Magnesium. 11.Protonix 40 mg p.o. b.i.d. 12.Phenergan 25 mg q.6h p.r.n. PHYSICAL EXAM: Patient is alert and oriented times three. Pulse 80. Blood pressure 117/60, respiration 14, temp is normal. Pulse ox 95% on room air. HEENT: Conjunctivae normal. NECK: No jugular venous distention. CARDIOVASCULAR: S1, S2 muffled. RESPIRATORY: Breath sounds diminished in the bases. No rhonchi. No crackles. ABDOMEN: Soft, nontender. LEGS are no edema. No swelling. CENTRAL NERVOUS SYSTEM: No focal deficits. LABORATORY DATA: WBC 12.2, hemoglobin 10.2, and INR is 1.2. Sodium 135. Accu-Cheks are 259, 232, 257. ASSESSMENT: 1. Acute wide-complex tachycardia with right bundle morphology possible ventricular tachycardia. 2. Subacute cough with an undetermined origin with possible congestive heart failure. 3. Paroxysmal atrial flutter with varying block, currently in sinus rhythm. 4. Remote history of pulmonary embolism. 5. Shortness of breath. 6. Diabetes mellitus type 2. 7. Hyperlipidemia. 8. Obesity with body mass index of 39.2. 9. Anemia of undetermined origin. 10.Diabetes mellitus type 2, uncontrolled with hyperglycemia. 11.Hypomagnesemia. RECOMMENDATIONS AND DISCUSSION: Recommend to continue current medications, management and symptomatic treatment. Monitor lytes closely. Closely follow with Cardiology. Possible EP study per Cardiology. Otherwise, I would recommend increase the mealtime dose of insulin. Monitor blood sugars closely. Further recommendations to follow. MMODL / IJN: [id number] /
[2019-04-18 21:21] LABS: Glucose,Whole Blood 167 mg/dL (75-99)
[2019-04-19] MEDS: PROMETHAZINE 25 MG TAB PO PRN (00:09)
[2019-04-19] MEDS: HEPARIN SOD,PORK IN 0.45% NACL 25,000 UNIT in 0.45% NACL 1 250ML.BAG IV SCH (00:36)
[2019-04-19 04:40] LABS: Anisocytosis Slight; Basophils # (A) 0.1 k/uL (0-0.2); Basophils % (A) 1 %; Eosinophils # (A) 0.2 k/uL (0-0.7); Eosinophils % (A) 2 %; HCT 36.3 % (39.0-53.0); HGB 10.9 gm/dL (13.0-17.5); Hypochromasia Marked; Lymphocytes # (A) 1.5 k/uL (1.0-4.8); Lymphocytes % (A) 14 %; MCH 25.9 pg (25.0-35.0); MCV 86.3 fL (80.0-100.0); Mean Platelet Volume 6.1; Monocytes # (A) 0.5 k/uL (0-1.0); Monocytes % (A) 5 %; Neutrophils # (A) 8.3 k/uL (1.3-7.7); Neutrophils % (A) 77 %; Platelet Count 284 k/uL (150-450); RBC 4.21 m/uL (4.30-5.90); RDW 16.4 % (11.5-15.5); WBC 10.8 k/uL (3.8-10.6)
[2019-04-19 04:49] LABS: INR 1.3 (<1.2); Partial Thromboplastin Time 32.7 sec (22.0-30.0); Prothrombin Time 13.5 sec (9.0-12.0)
[2019-04-19 04:56] LABS: African American GFR (CKD) >90 (>60 ml/min/1.73 sqM); Anion Gap 7 mmol/L; Blood Urea Nitrogen 16 mg/dL (9-20); Calcium 8.6 mg/dL (8.4-10.2); Carbon Dioxide 22 mmol/L (22-30); Chloride 106 mmol/L (98-107); Glucose 142 mg/dL (74-99); Magnesium 1.7 mg/dL (1.6-2.3); Potassium 4.3 mmol/L (3.5-5.1); Sodium 135 mmol/L (137-145)
[2019-04-19] MEDS: MAGNESIUM SULFATE-D5W PMX 1 GM in DEXTROSE/WATER 1 100ML.BAG IVPB SCH ×2 (06:11→07:22)
[2019-04-19 07:02] LABS: Glucose,Whole Blood 144 mg/dL (75-99)
[2019-04-19] MEDS: INSULIN ASPART (NovoLOG) 100 UNIT/ML VIAL SQ SCH ×7 (08:18→20:06)
[2019-04-19] MEDS: LINAGLIPTIN 5 MG TABLET PO SCH (08:18)
[2019-04-19] MEDS: metFORMIN 500 MG TAB PO SCH (08:18)
[2019-04-19 08:30] LABS: Glucose,Whole Blood 164 mg/dL (75-99)
[2019-04-19] MEDS: BUDESONIDE 0.5 MG/2 ML NEBU INHALATION SCH ×2 (08:34→19:51)
[2019-04-19] MEDS: PANTOPRAZOLE 40 MG TABLET PO SCH ×2 (08:46→20:07)
[2019-04-19] MEDS: METOPROLOL TARTRATE 50 MG TAB PO SCH ×2 (08:46→20:07)
[2019-04-19] MEDS: ATORVASTATIN 40 MG TAB PO SCH (08:47)
[2019-04-19] MEDS ORDERED: LIDOCAINE 1% INJ 10MG/ML (20 ML MDV) ONE ×2 (10:59→17:39)
[2019-04-19] MEDS ORDERED: IV FLUID CONTINUATION 1,000 ML IV ONE (11:00)
[2019-04-19] MEDS ORDERED: KETAMINE 10 MG/ML 20 ML VIAL ONE (11:00)
[2019-04-19] MEDS ORDERED: MIDAZOLAM 2 MG/2 ML VIAL ONE (11:00)
[2019-04-19] MEDS ORDERED: METOPROLOL TARTRATE 5 MG/5 ML VIAL IVP ONE (11:00)
[2019-04-19] MEDS ORDERED: fentaNYL (PF) 50 MCG/ML 2 ML AMP ONE (11:00)
[2019-04-19] MEDS ORDERED: ISOPROTERENOL 250 MCG/1.25 ML SYR IV ONE (11:00)
[2019-04-19] MEDS ORDERED: PROTAMINE SULFATE 10 MG/ML 5 ML VIAL IV ONE (11:00)
[2019-04-19] MEDS ORDERED: FUROSEMIDE 10 MG/ML 2 ML VIAL ONE (11:00)
[2019-04-19] MEDS ORDERED: HEPARIN SODIUM,PORCINE 10,000 UNIT/ML 1 ML VIAL ONE (11:00)
[2019-04-19] MEDS ORDERED: PROPOFOL 10 MG/ML 20 ML VIAL IV ONE (11:00)
[2019-04-19] MEDS: LIDOCAINE 1% INJ 10MG/ML (20 ML MDV) SQ ONE ×2 (12:11→17:41)
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
[2019-04-19] MEDS ORDERED: HEPARIN SODIUM (1,000 UNIT/ML) 1,000 UNIT in SODIUM CHLORIDE 0.9% 1,000 ML IRRIGATION ONE (13:46)
[2019-04-19] MEDS ORDERED: LACTATED RINGERS 1,000 ML IV ONE (14:21)
[2019-04-19] MEDS ORDERED: HEPARIN SOD,PORK IN 0.45% NACL 25,000 UNIT in 0.45% NACL 1 250ML.BAG IV ONE (14:21)
--- NOTE | 2019-04-19 14:53 | P.PN ---
Subjective Progress Note Date: 04/19/19 Principal diagnosis: 73-year-old pleasant gentleman was admitted for a subacute to chronic cough cough improved. Etiology of cough is not clear patient is scheduled to undergo bronchoscopy today although his cough significantly improved shortness of breath improved patient was treated for multiple issues including gastroesophageal reflux disease cough irritant asthma and probable diastolic dysfunction heart failure patient was given Protonix, inhaled steroids and systemic steroids all the systems steroids will be discontinued because of his elevated blood sugars and the Lasix as well. Patient at this point of time is in sustained VT asymptomatic patient received a dose of verapamil followed by amiodarone bolus followed by synchronized cardioversion after which patient was briefly sinus rhythm and back into V. fib, receiving metoprolol at this time. Cardiology is managing his sustained VT. Patient to cardiac showed normal ejection fraction. Constitutional: Denied any fatigue denied any fever. Cardio vascular: denied any chest pain, palpitations Gastrointestinal denied any nausea vomiting Pulmonary: Denied any shortness of breath cough Neurologic denied any new focal deficits All inpatient medications were reviewed and appropriate changes in these medications as dictated in the interval history and assessment and plan. 04/16/2019 Patient is sitting up in bed in no acute distress with family at the bedside. Patient's states that he has no shortness of breath at this time and denies cough except for at night will have a cough that is dry in nature. Patient denies any chest pain or palpitations at this time. Patient denies any nausea or vomiting and is tolerating diet. Patient denies having short of breath with walking or moving around in the room. No acute overnight issues. Patient was recently discontinued on the IV lidocaine and IV Amiodarone drip and placed on Cardizem per cardiology. Patient appears to be more rate controlled on Cardizem at this time. Cardiology is following closely and planning for possible ablation on Friday. Guarded prognosis. REVIEW OF SYSTEMS: ENT: No diminished vision or hearing. CARDIOVASCULAR: Mentioned earlier. RESPIRATORY: As mentioned earlier. GI: No nausea, vomiting or diarrhea. : No dysuria or retention. NERVOUS SYSTEM: No numbness or weakness. HEMATOLOGY/ONCOLOGY: No history of anemia. ENDOCRINE: Reports diabetes CONSTITUTIONAL: As mentioned earlier. Active Medications Hydrocodone Bitart/Acetaminophen ([place] 10) 1 each PO Q4H PRN PRN Reason: Pain Last Admin: 04/13/19 22:02 Dose: 1 each Documented by: Albuterol/Ipratropium (Duoneb 0.5 Mg-3 Mg/3 Ml Soln) 3 ml INHALATION RT-QID [facility] Last Admin: 04/16/19 11:39 Dose: Not Given Documented by: Atorvastatin Calcium (Lipitor) 40 mg PO DAILY [facility] Last Admin: 04/16/19 10:04 Dose: 40 mg Documented by: Benzonatate (Tessalon Perles) 200 mg PO TID [facility] Last Admin: 04/16/19 11:29 Dose: 200 mg Documented by: Budesonide (Pulmicort) 0.5 mg INHALATION RT-BID [facility] Last Admin: 04/16/19 08:43 Dose: Not Given Documented by: Furosemide (Lasix) 40 mg PO BID@0900,1600 [facility] Last Admin: 04/16/19 11:44 Dose: Not Given Documented by: Glipizide (Glucotrol) 2.5 mg PO AC-BID [facility] Last Admin: 04/16/19 06:30 Dose: 2.5 mg Documented by: Ceftriaxone Sodium 1 gm/ (Sodium Chloride) 50 mls @ 100 mls/hr IVPB Q24HR [facility] Last Admin: 04/16/19 10:11 Dose: 100 mls/hr Documented by: Sodium Chloride (Saline 0.9%) 1,000 mls @ 20 mls/hr IV .Q24H [facility] Last Admin: 04/16/19 10:08 Dose: 20 mls/hr Documented by: Diltiazem HCl 125 mg/ Sodium (Chloride) 125 mls @ 10 mls/hr IV .[id number] [facility] Last Admin: 04/16/19 10:57 Dose: 10 mg/hr, 10 mls/hr Documented by: Insulin Aspart (Novolog) 0 unit SQ ACHS [facility]; Protocol Last Admin: 04/16/19 12:18 Dose: Not Given Documented by: Linagliptin (Tradjenta) 5 mg PO W/BRKT [facility] Last Admin: 04/16/19 06:30 Dose: 5 mg Documented by: Metformin HCl (Glucophage) 1,000 mg PO W/BRKFST [facility] Last Admin: 04/16/19 06:30 Dose: 1,000 mg Documented by: Metoprolol Tartrate (Lopressor) 50 mg PO BID [facility] Last Admin: 04/16/19 10:04 Dose: 50 mg Documented by: Pantoprazole Sodium (Protonix) 40 mg PO BID [facility] Promethazine HCl (Phenergan) 25 mg PO Q6HR PRN PRN Reason: Cough Warfarin Sodium (Coumadin) 2.5 mg PO HS [facility] Last Admin: 04/15/19 21:08 Dose: 2.5 mg Documented by: 04/19/2019 Patient is sitting up at the side of the bed in no acute distress in the ICU and is being closely monitored. Multiple medical consultations are following. Patient is undergoing an EP study with ablation this morning with cardiology. Currently patient denies any chest pain, shortness of breath, or palpitations. Patient is afebrile. Patient denies any nausea or vomiting and has been nothing by mouth since midnight. Will await report. Guarded prognosis. Objective - Vital Signs Vital signs: Vital Signs Temp 98.2 F 04/19/19 08:00 Pulse 74 04/19/19 10:00 Resp 15 04/19/19 10:00 BP 112/59 04/19/19 10:00 Pulse Ox 94 L 04/19/19 10:00 Intake & Output 04/18/19 04/19/19 04/19/19 18:59 06:59 18:59 Intake Total 1064.461 422.862 Output Total 652 550 0 Balance 412.461 -127.138 0 Weight 127 kg Intake: IV 200 Magnesium Sulfate-D5w Pmx 100 1 gm In Dextrose/Water 1 100ml.bag @ 100 mls/hr IVPB Q1H [facility] Rx#: [id number] cefTRIAXone 1 gm In 100 Sodium Chloride 0.9% 50 ml @ 100 mls/hr IVPB Q24HR [facility] Rx#:[id number] Intake, IV Titration 64.461 222.862 Amount Heparin Sod,Pork in 0.45% 64.461 222.862 NaCl 25,000 unit In 0.45 % NaCl 1 250ml.bag @ 8.04 UNITS/KG/HR 9.994 mls/hr IV .Q24H [facility] Rx#: [id number] Oral 800 200 Output: Urine 652 550 0 Other: Voiding Method Toilet Toilet Toilet Urinal Urinal Urinal # Voids 1 0 1 - Exam GENERAL: The patient is alert and oriented x3, not in any acute distress. Obese. Blood pressure is 112/77, oxygen saturation is 96% on room air, pulse is 85, respirations are 18, temp is 98.2 F. HEENT: Pupils are round and equally reacting to light. EOMI. No scleral icterus. No conjunctival pallor. Normocephalic, atraumatic. No thyromegaly. CARDIOVASCULAR: S1 and S2 are muffled, no murmur noted PULMONARY: Chest is clear to auscultation, no wheezing or crackles. ABDOMEN: Soft, nontender, nondistended, normoactive bowel sounds. No palpable organomegaly. MUSCULOSKELETAL: No joint swelling or deformity. EXTREMITIES: No cyanosis, clubbing, or pedal edema. NEUROLOGICAL: Gross neurological examination did not reveal any focal deficits. SKIN: No rashes. - Labs CBC & Chem 7: 04/19/19 03:58 04/19/19 03:58 Labs: Abnormal Lab Results - Last 24 Hours (Table) 04/18/19 04/19/19 04/19/19 Range/Units 21: 03:58 03:58 WBC (3.8-10.6) k/uL RBC (4.30-5.90) m/uL Hgb (13.0-17.5) gm/dL Hct (39.0-53.0) % MCHC (31.0-37.0) g/dL RDW (11.5-15.5) % Neutrophils # (1.3-7.7) k/uL PT 13.5 H (9.0-12.0) sec INR 1.3 H (<1.2) APTT 32.7 H (22.0-30.0) sec Sodium 135 L (137-145) mmol/L Glucose 142 H (74-99) mg/dL POC Glucose (mg/dL) 167 H (75-99) mg/dL 04/19/19 04/19/19 04/19/19 Range/Units 03:58 07:00 08:29 WBC 10.8 H (3.8-10.6) k/uL RBC 4.21 L (4.30-5.90) m/uL Hgb 10.9 L (13.0-17.5) gm/dL Hct 36.3 L (39.0-53.0) % MCHC 30.0 L (31.0-37.0) g/dL RDW 16.4 H (11.5-15.5) % Neutrophils # 8.3 H (1.3-7.7) k/uL PT (9.0-12.0) sec INR (<1.2) APTT (22.0-30.0) sec Sodium (137-145) mmol/L Glucose (74-99) mg/dL POC Glucose (mg/dL) 144 H 164 H (75-99) mg/dL Assessment and Plan Assessment: -Acute wide-complex tachycardia with right bundle morphology possible ventricular tachycardia. Patient is undergoing an EP study and ablation with cardiology this morning. Subacute cough with and undetermined origin with possible congestive heart failure Paroxysmal atrial flutter with varying block, currently in sinus rhythm Remote history of pulmonary embolism Shortness of breath Diabetes mellitus type 2, uncontrolled with hyperglycemia Hyperlipidemia Obesity with body mass index of 39.2 Anemia of undetermined origin Hypomagnesemia DVT prophylaxis Recommendations and discussion: Recommend continue current medications, management, and symptomatic treatment. Will continue to monitor closely. Cardiology and pulmonary are following bailey wang. Per cardiology recommendations patient is undergoing an EP study and VT ablation today. Will await report. Patient is being maintained on heparin drip and will continue to monitor vital signs and labs closely. Extremely guarded prognosis. Further recommendations to follow.
[2019-04-19 16:50] LABS: Glucose,Whole Blood 150 mg/dL (75-99)
[2019-04-19] MEDS ORDERED: HYDROcodone/APAP 5-325MG 1 EACH TAB PO PRN (17:45)
[2019-04-19] MEDS ORDERED: ACETAMINOPHEN IV (For NPO) 1,000 MG in EMPTY BAG 1 BAG IVPB ONE (17:45)
[2019-04-19] MEDS ORDERED: ACETAMINOPHEN TAB 325 MG TAB PO PRN (17:45)
[2019-04-19] MEDS ORDERED: WARFARIN 5 MG TAB PO ONE (18:00)
--- NOTE | 2019-04-19 18:04 | P.PRLE ---
RE: Wai Walker Dear Dr. Marquez Mr. Walker experienced sustained monomorphic ventricular tachycardia originating from the inferior septum of the left ventricle [idiopathic VT], with preserved LV systolic function He was completely drug refractory and he underwent an EP study and successful ablation of this ventricular tachycardia The tachycardia was rendered noninducible on high-dose Isuprel He will continue Coumadin and all his other medications and I will continue metoprolol for now He also has typical atrial flutter but we did not address this with radiofrequency ablation at this time If in the future he has symptomatic atrial flutter or atrial fibrillation, 80 be addressed at that time Thank you for entrusting me with the care of the patient Warm regards Sincerely Herberth Howard
--- NOTE | 2019-04-19 18:43 | PCN ---
PROCEDURE NOTE Wai Walker is a 73-year-old male patient who had idiopathic ventricular tachycardia, normal LV function. He failed multiple drugs and it was very difficult to control this VT. He was therefore brought into the EP lab for a diagnostic EP study and radiofrequency ablation. The VT morphology was a right bundle branch block type morphology with superior axis consistent with inferoseptal VT, possibly in the region of the Purkinje network of the left posterior fascicle of the left ventricle. Patient was brought to the EP lab in a fasting state. Written informed consent was obtained prior to the procedure. The right and left groins were prepped and draped as per protocol. Two venous sheaths were placed, one on each side, in the femoral vein, and a femoral artery sheath was placed. Diagnostic catheters were placed in the right heart and hemodynamic monitoring and sampling was performed. The diagnostic EP study revealed a WA interval of 138 milliseconds, QRS 86 milliseconds, QT 375 milliseconds. AH 50 milliseconds, HV interval 43 milliseconds. Burst stimulation was performed from the right ventricle. No VT was induced. Ventricular extrastimulation was performed up to triple extrastimuli at [address] No VT was induced. On high-dose Isuprel, VT was induced with burst pacing from the right ventricle septum at a paced cycle length of 340 milliseconds. This induced ventricular tachycardia at a cycle length of 346 milliseconds and had a right bundle branch block morphology with a superior axis. This was clinical VT. Following that, a long sheath was placed in the right femoral artery and a PentaRay catheter was placed in the left ventricle. Intracardiac echo catheter was placed. Three-dimensional electroanatomic mapping was performed. LV was mapped in addition and there was no evidence of pericardial effusion. LV function was normal. Left ventricular hypertrophy was noted. There were no intracardiac masses in the right atrial or left atrial appendage. The patient has a history of atrial fibrillation and atrial flutter, but there was sinus rhythm at that time. Left ventricle underwent 3D anatomic mapping. The papillary muscle was mapped. Following that, with a PentaRay during sinus rhythm, the His bundle and the left posterior anterior fascicles were mapped . Ventricular tachycardia was induced and activation mapping was performed (systolic activation map). Later, the mapping ablation catheter was placed in the left ventricle. This was a fairly small left ventricular cavity and therefore a detailed systolic activation map of the VT was performed. Following that, diastolic pathway mapping was performed, and the systolic and diastolic maps were correlated with the underlying anatomy and its position relative to the left posterior fascicle. The entire diastolic pathway was mapped. Following that, RF ablation was performed in the early, mid and late isthmus. Reasonably good contact force of between 5 and 15 grams was obtained. Escalating power from 30 to 45 lucia was performed for 30 seconds at each site. Following RF ablation and delivery, a detailed EP study was once again performed. This was on high-dose Isuprel on multiple occasions with burst stimulation from 400 milliseconds down to 200 milliseconds from the right ventricle. No VT could be induced; not even a single burst of a clinical PVC was induced. This was attempted multiple times by turning Isuprel on and off and stimulating the ventricle. At the end of the procedure, the sheaths were removed, heparin was reversed, IV Lasix was administered. This was a long procedure. It lasted for over 5 hours and involved both systolic activation mapping, diastolic pathway mapping, pace mapping, which was also performed during the procedure. A PentaRay catheter was used for mapping and later ablation catheter was used for mapping. RESULT: Successful ablation of idiopathic VT from the inferior septal area with ablation of the diastolic pathway, resulting in non-induction of VT on high-dose Isuprel and burst stimulation from the right ventricle up to 200 milliseconds. PLAN: Resume Coumadin. Patient tolerated the procedure well without any acute complications. MMODL / IJN: [id number] /
[2019-04-19] MEDS: HYDROcodone/APAP 10-325MG 1 EACH TAB PO PRN (18:57)
[2019-04-19 19:11] LABS: Glucose,Whole Blood 162 mg/dL (75-99)
[2019-04-19 20:14] LABS: Glucose,Whole Blood 164 mg/dL (75-99)
[2019-04-20 06:21] LABS: INR 1.3 (<1.2); Partial Thromboplastin Time 26.9 sec (22.0-30.0); Prothrombin Time 13.6 sec (9.0-12.0)
[2019-04-20 06:22] LABS: African American GFR (CKD) >90 (>60 ml/min/1.73 sqM); Anion Gap 7 mmol/L; Blood Urea Nitrogen 14 mg/dL (9-20); Calcium 8.4 mg/dL (8.4-10.2); Carbon Dioxide 26 mmol/L (22-30); Chloride 103 mmol/L (98-107); Glucose 130 mg/dL (74-99); Magnesium 1.7 mg/dL (1.6-2.3); Potassium 4.3 mmol/L (3.5-5.1); Sodium 136 mmol/L (137-145)
[2019-04-20] MEDS: MAGNESIUM SULFATE-D5W PMX 1 GM in DEXTROSE/WATER 1 100ML.BAG IVPB SCH ×2 (06:31→08:41)
[2019-04-20] MEDS: LINAGLIPTIN 5 MG TABLET PO SCH (06:34)
[2019-04-20] MEDS: metFORMIN 500 MG TAB PO SCH (06:34)
[2019-04-20] MEDS: INSULIN ASPART (NovoLOG) 100 UNIT/ML VIAL SQ SCH ×7 (06:39→20:41)
[2019-04-20 06:51] LABS: Anisocytosis Slight; Basophils # (A) 0.1 k/uL (0-0.2); Basophils % (A) 1 %; Eosinophils # (A) 0.2 k/uL (0-0.7); Eosinophils % (A) 2 %; HCT 34.7 % (39.0-53.0); HGB 10.6 gm/dL (13.0-17.5); Hypochromasia Marked; Lymphocytes # (A) 1.2 k/uL (1.0-4.8); Lymphocytes % (A) 12 %; MCH 26.3 pg (25.0-35.0); MCHC 30.5 g/dL (31.0-37.0); MCV 86.3 fL (80.0-100.0); Mean Platelet Volume 6.7; Monocytes # (A) 0.7 k/uL (0-1.0); Monocytes % (A) 6 %; Neutrophils # (A) 8.2 k/uL (1.3-7.7); Neutrophils % (A) 78 %; Platelet Count 234 k/uL (150-450); RBC 4.02 m/uL (4.30-5.90); RDW 16.4 % (11.5-15.5); WBC 10.5 k/uL (3.8-10.6)
[2019-04-20 06:51] LABS: Glucose,Whole Blood 140 mg/dL (75-99)
[2019-04-20] MEDS: PANTOPRAZOLE 40 MG TABLET PO SCH ×2 (08:41→20:38)
[2019-04-20] MEDS: METOPROLOL TARTRATE 50 MG TAB PO SCH ×2 (08:41→20:38)
[2019-04-20] MEDS: ATORVASTATIN 40 MG TAB PO SCH (08:41)
[2019-04-20] MEDS: BUDESONIDE 0.5 MG/2 ML NEBU INHALATION SCH ×2 (08:42→19:21)
[2019-04-20] MEDS ORDERED: FUROSEMIDE 40 MG TAB PO SCH (09:00)
[2019-04-20] MEDS ORDERED: FUROSEMIDE 40 MG TAB PO ONE (09:00)
[2019-04-20] MEDS: HYDROcodone/APAP 10-325MG 1 EACH TAB PO PRN ×2 (09:22→21:13)
[2019-04-20] MEDS: APIXABAN 5 MG TAB PO SCH ×2 (11:05→20:37)
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
[2019-04-20 12:05] LABS: Glucose,Whole Blood 169 mg/dL (75-99)
--- NOTE | 2019-04-20 13:15 | P.PN ---
Subjective This is Dee Ledesma PA-C dictating a progress note on this patient The patient was interviewed and examined by me as well as by Dr. Howard Case discussed with Dr. Howard and he agrees with the plan of care IMPRESSION / ASSESSMENT: Idiopathic Ventricular tachycardia status post successful ventricular tachycardia ablation Typical atrial flutter, currently in sinus rhythm Persistent cough, shortness of breath, PND and orthopnea suggestive of possible CHF Recent echo showing normal LV size and function Diabetes History of PE Hypomagnesemia PLAN: Stop Coumadin and start anticoagulation with eliquis 5 mg twice a day He needs emits being replaced Continue metoprolol Follow-up echocardiogram and stress test outpatient, he will need a chemical stress test as he is not able to walk due to left hip pain and arthritis HPI/interval history Patient is a 73-year-old male with past medical history of diabetes and PE who presented with complaints of cough. He was admitted for further evaluation. While on the medical floor, he was found to be in an nonsustained wide complex tachycardia. He underwent successful electrical cardioversion twice and the tachycardia recurred shortly after. The tachycardia did not terminate with IV verapamil, IV metoprolol as well as amiodarone and a lidocaine drip. He was transferred to the ICU. He was placed on an amiodarone drip as well as a lidocaine drip. He went into flutter and then back into the wide complex tachycardia. The amiodarone and lidocaine were discontinued and he was started on IV Cardizem. He later converted to sinus rhythm. Yesterday he underwent a diagnostic EP study and successful ablation of idiopathic ventricular tachycardia. He has been in sinus rhythm overnight. Patient seen and examined sitting up in his chair. Denies any complaints of chest pain, pleuritic chest discomfort, shortness of breath, palpitations, dizziness. He has been able to get up and walk around without any problems. No bleeding issues. EXAMINATION Temperature 97.9F, pulse 80, respirations 16, blood pressure 119/64, oxygen saturation 95% on room air Patient seen and examined sitting up in his chair, in no acute distress Lungs clear to auscultation bilaterally, no crackles rhonchi or wheezing Heart is regular, normal S1-S2, no murmurs noted No elevated JVD No lower extremity edema No bleeding or hematoma palpated in bilateral groins REVIEW OF LABS, ECG WBC 10.5, hemoglobin 10.6, platelets 234, potassium 4.3, BUN 14, creatinine 0.87, magnesium 1.7 Objective - Vital Signs Vital signs: Vital Signs Temp 97.9 F 04/20/19 12:00 Pulse 80 04/20/19 12:00 Resp 16 04/20/19 12:00 BP 119/64 04/20/19 12:00 Pulse Ox 95 04/20/19 12:00 Intake & Output 04/19/19 04/20/19 04/20/19 18:59 06:59 18:59 Intake Total 2380 50 100 Output Total 1000 2075 480 Balance 1380 -2024 -380 Weight 124 kg Intake: IV 2380 100 Magnesium Sulfate-D5w Pmx 100 1 gm In Dextrose/Water 1 100ml.bag @ 100 mls/hr IVPB Q1H [facility] Rx#: [id number] Oral 50 Output: Urine 1000 2075 480 Other: Voiding Method Toilet Indwelling Catheter Toilet Urinal Urinal # Voids 1 0 - Labs CBC & Chem 7: 04/20/19 05:54 04/20/19 05:54 Labs: Abnormal Lab Results - Last 24 Hours (Table) 04/19/19 04/19/19 04/19/19 Range/Units 16:49 19:11 20:03 RBC (4.30-5.90) m/uL Hgb (13.0-17.5) gm/dL Hct (39.0-53.0) % MCHC (31.0-37.0) g/dL RDW (11.5-15.5) % Neutrophils # (1.3-7.7) k/uL PT (9.0-12.0) sec INR (<1.2) Sodium (137-145) mmol/L Glucose (74-99) mg/dL POC Glucose (mg/dL) 150 H 162 H 164 H (75-99) mg/dL 04/20/19 04/20/19 04/20/19 Range/Units 05:54 05:54 05:54 RBC 4.02 L (4.30-5.90) m/uL Hgb 10.6 L (13.0-17.5) gm/dL Hct 34.7 L (39.0-53.0) % MCHC 30.5 L (31.0-37.0) g/dL RDW 16.4 H (11.5-15.5) % Neutrophils # 8.2 H (1.3-7.7) k/uL PT 13.6 H (9.0-12.0) sec INR 1.3 H (<1.2) Sodium 136 L (137-145) mmol/L Glucose 130 H (74-99) mg/dL POC Glucose (mg/dL) (75-99) mg/dL 04/20/19 04/20/19 Range/Units 06:39 12:04 RBC (4.30-5.90) m/uL Hgb (13.0-17.5) gm/dL Hct (39.0-53.0) % MCHC (31.0-37.0) g/dL RDW (11.5-15.5) % Neutrophils # (1.3-7.7) k/uL PT (9.0-12.0) sec INR (<1.2) Sodium (137-145) mmol/L Glucose (74-99) mg/dL POC Glucose (mg/dL) 140 H 169 H (75-99) mg/dL
[2019-04-20 14:02] VITALS: BMI 39.2
--- NOTE | 2019-04-20 14:14 | P.PN ---
Subjective Progress Note Date: 04/20/19 Principal diagnosis: 73-year-old pleasant gentleman was admitted for a subacute to chronic cough cough improved. Etiology of cough is not clear patient is scheduled to undergo bronchoscopy today although his cough significantly improved shortness of breath improved patient was treated for multiple issues including gastroesophageal reflux disease cough irritant asthma and probable diastolic dysfunction heart failure patient was given Protonix, inhaled steroids and systemic steroids all the systems steroids will be discontinued because of his elevated blood sugars and the Lasix as well. Patient at this point of time is in sustained VT asymptomatic patient received a dose of verapamil followed by amiodarone bolus followed by synchronized cardioversion after which patient was briefly sinus rhythm and back into V. fib, receiving metoprolol at this time. Cardiology is managing his sustained VT. Patient to cardiac showed normal ejection fraction. Constitutional: Denied any fatigue denied any fever. Cardio vascular: denied any chest pain, palpitations Gastrointestinal denied any nausea vomiting Pulmonary: Denied any shortness of breath cough Neurologic denied any new focal deficits All inpatient medications were reviewed and appropriate changes in these medications as dictated in the interval history and assessment and plan. 04/16/2019 Patient is sitting up in bed in no acute distress with family at the bedside. Patient's states that he has no shortness of breath at this time and denies cough except for at night will have a cough that is dry in nature. Patient denies any chest pain or palpitations at this time. Patient denies any nausea or vomiting and is tolerating diet. Patient denies having short of breath with walking or moving around in the room. No acute overnight issues. Patient was recently discontinued on the IV lidocaine and IV Amiodarone drip and placed on Cardizem per cardiology. Patient appears to be more rate controlled on Cardizem at this time. Cardiology is following closely and planning for possible ablation on Friday. Guarded prognosis. REVIEW OF SYSTEMS: ENT: No diminished vision or hearing. CARDIOVASCULAR: Mentioned earlier. RESPIRATORY: As mentioned earlier. GI: No nausea, vomiting or diarrhea. : No dysuria or retention. NERVOUS SYSTEM: No numbness or weakness. HEMATOLOGY/ONCOLOGY: No history of anemia. ENDOCRINE: Reports diabetes CONSTITUTIONAL: As mentioned earlier. Active Medications Hydrocodone Bitart/Acetaminophen ([place] 10) 1 each PO Q4H PRN PRN Reason: Pain Last Admin: 04/13/19 22:02 Dose: 1 each Documented by: Albuterol/Ipratropium (Duoneb 0.5 Mg-3 Mg/3 Ml Soln) 3 ml INHALATION RT-QID [facility] Last Admin: 04/16/19 11:39 Dose: Not Given Documented by: Atorvastatin Calcium (Lipitor) 40 mg PO DAILY [facility] Last Admin: 04/16/19 10:04 Dose: 40 mg Documented by: Benzonatate (Tessalon Perles) 200 mg PO TID [facility] Last Admin: 04/16/19 11:29 Dose: 200 mg Documented by: Budesonide (Pulmicort) 0.5 mg INHALATION RT-BID [facility] Last Admin: 04/16/19 08:43 Dose: Not Given Documented by: Furosemide (Lasix) 40 mg PO BID@0900,1600 [facility] Last Admin: 04/16/19 11:44 Dose: Not Given Documented by: Glipizide (Glucotrol) 2.5 mg PO AC-BID [facility] Last Admin: 04/16/19 06:30 Dose: 2.5 mg Documented by: Ceftriaxone Sodium 1 gm/ (Sodium Chloride) 50 mls @ 100 mls/hr IVPB Q24HR [facility] Last Admin: 04/16/19 10:11 Dose: 100 mls/hr Documented by: Sodium Chloride (Saline 0.9%) 1,000 mls @ 20 mls/hr IV .Q24H [facility] Last Admin: 04/16/19 10:08 Dose: 20 mls/hr Documented by: Diltiazem HCl 125 mg/ Sodium (Chloride) 125 mls @ 10 mls/hr IV .Q84P51H [facility] Last Admin: 04/16/19 10:57 Dose: 10 mg/hr, 10 mls/hr Documented by: Insulin Aspart (Novolog) 0 unit SQ ACHS [facility]; Protocol Last Admin: 04/16/19 12:18 Dose: Not Given Documented by: Linagliptin (Tradjenta) 5 mg PO W/BRKT [facility] Last Admin: 04/16/19 06:30 Dose: 5 mg Documented by: Metformin HCl (Glucophage) 1,000 mg PO W/BRKFST [facility] Last Admin: 04/16/19 06:30 Dose: 1,000 mg Documented by: Metoprolol Tartrate (Lopressor) 50 mg PO BID [facility] Last Admin: 04/16/19 10:04 Dose: 50 mg Documented by: Pantoprazole Sodium (Protonix) 40 mg PO BID [facility] Promethazine HCl (Phenergan) 25 mg PO Q6HR PRN PRN Reason: Cough Warfarin Sodium (Coumadin) 2.5 mg PO HS [facility] Last Admin: 04/15/19 21:08 Dose: 2.5 mg Documented by: 04/19/2019 Patient is sitting up at the side of the bed in no acute distress in the ICU and is being closely monitored. Multiple medical consultations are following. Patient is undergoing an EP study with ablation this morning with cardiology. Currently patient denies any chest pain, shortness of breath, or palpitations. Patient is afebrile. Patient denies any nausea or vomiting and has been nothing by mouth since midnight. Will await report. Guarded prognosis. 04/20/2019 Patient is sitting up in the chair in no acute distress awaiting the lunch. Family is at the bedside. Yesterday patient underwent an EP study along with successful ablation of idiopathic ventricular tachycardia from the inferior septal area with ablation to the diastolic pathway and is being closely monitored. Patient is currently off IV drips and heparin is being discontinued patient will also be discontinuing Coumadin and will be started on [place] 5 mg twice daily per cardiology recommendations. Patient denies any chest pain, shortness of breath, or palpitations at this time. Patient is afebrile. Patient denies any nausea or vomiting and is tolerating diet. Patient currently remains in the ICU for close monitoring. Patient still has some mild cough that he states is more under control. Patient would like to go home tomorrow. Guarded prognosis. Objective - Vital Signs Vital signs: Vital Signs Temp 97.9 F 04/20/19 12:00 Pulse 80 04/20/19 12:00 Resp 16 04/20/19 12:00 BP 119/64 04/20/19 12:00 Pulse Ox 95 04/20/19 12:00 Intake & Output 04/19/19 04/20/19 04/20/19 18:59 06:59 18:59 Intake Total 2380 50 100 Output Total 1000 8665 480 Balance 1380 -2024 -380 Weight 124 kg Intake: IV 2380 100 Magnesium Sulfate-D5w Pmx 100 1 gm In Dextrose/Water 1 100ml.bag @ 100 mls/hr IVPB Q1H [facility] Rx#: [id number] Oral 50 Output: Urine 1000 6375 480 Other: Voiding Method Toilet Indwelling Catheter Toilet Urinal Urinal # Voids 1 0 - Labs CBC & Chem 7: 04/20/19 05:54 04/20/19 05:54 Labs: Abnormal Lab Results - Last 24 Hours (Table) 04/19/19 04/19/19 04/19/19 Range/Units 16:49 19:11 20:03 RBC (4.30-5.90) m/uL Hgb (13.0-17.5) gm/dL Hct (39.0-53.0) % MCHC (31.0-37.0) g/dL RDW (11.5-15.5) % Neutrophils # (1.3-7.7) k/uL PT (9.0-12.0) sec INR (<1.2) Sodium (137-145) mmol/L Glucose (74-99) mg/dL POC Glucose (mg/dL) 150 H 162 H 164 H (75-99) mg/dL 04/20/19 04/20/19 04/20/19 Range/Units 05:54 05:54 05:54 RBC 4.02 L (4.30-5.90) m/uL Hgb 10.6 L (13.0-17.5) gm/dL Hct 34.7 L (39.0-53.0) % MCHC 30.5 L (31.0-37.0) g/dL RDW 16.4 H (11.5-15.5) % Neutrophils # 8.2 H (1.3-7.7) k/uL PT 13.6 H (9.0-12.0) sec INR 1.3 H (<1.2) Sodium 136 L (137-145) mmol/L Glucose 130 H (74-99) mg/dL POC Glucose (mg/dL) (75-99) mg/dL 04/20/19 04/20/19 Range/Units 06:39 12:04 RBC (4.30-5.90) m/uL Hgb (13.0-17.5) gm/dL Hct (39.0-53.0) % MCHC (31.0-37.0) g/dL RDW (11.5-15.5) % Neutrophils # (1.3-7.7) k/uL PT (9.0-12.0) sec INR (<1.2) Sodium (137-145) mmol/L Glucose (74-99) mg/dL POC Glucose (mg/dL) 140 H 169 H (75-99) mg/dL Assessment and Plan Assessment: -Acute wide-complex tachycardia with right bundle morphology possible ventricular tachycardia. Patient underwent an EP study and successful ablation with cardiology yesterday. Patient is currently off IV drips and is being started on Eliquis 5mg BID. Subacute cough with and undetermined origin with possible congestive heart failure Paroxysmal atrial flutter with varying block, currently in sinus rhythm Remote history of pulmonary embolism Shortness of breath Diabetes mellitus type 2, uncontrolled with hyperglycemia Hyperlipidemia Obesity with body mass index of 39.2 Anemia of undetermined origin Hypomagnesemia DVT prophylaxis Recommendations and discussion: Recommend continue current medications, management, and symptomatic treatment. Will continue to monitor closely. Cardiology and pulmonary are following closely. Patient still remains in the ICU for close monitoring. Per cardiology recommendations patient is being discontinued on his Coumadin and will be star ting Eliquis. Case management and social work are following to verify insurance coverage for the Eliquis. Blood sugars remained slightly elevated and will continue to monitor closely. Extremely guarded prognosis. Further recommendations to follow. Possible discharge in 24-48 hours.
[2019-04-20 17:00] LABS: Glucose,Whole Blood 190 mg/dL (75-99)
[2019-04-20] MEDS ORDERED: WARFARIN 2.5 MG TAB PO SCH (18:00)
[2019-04-20 20:38] LABS: Glucose,Whole Blood 133 mg/dL (75-99)
[2019-04-21 05:25] LABS: Anisocytosis Slight; Basophils % (A) 0 %; Eosinophils # (A) 0.2 k/uL (0-0.7); Eosinophils % (A) 2 %; HGB 10.2 gm/dL (13.0-17.5); Hypochromasia Marked; Lymphocytes # (A) 1.7 k/uL (1.0-4.8); Lymphocytes % (A) 16 %; MCH 26.3 pg (25.0-35.0); MCHC 30.9 g/dL (31.0-37.0); Mean Platelet Volume 5.8; Monocytes # (A) 0.6 k/uL (0-1.0); Monocytes % (A) 6 %; Neutrophils # (A) 7.4 k/uL (1.3-7.7); Neutrophils % (A) 73 %; Platelet Count 295 k/uL (150-450); RBC 3.88 m/uL (4.30-5.90); RDW 16.4 % (11.5-15.5); WBC 10.2 k/uL (3.8-10.6)
[2019-04-21 05:33] LABS: African American GFR (CKD) >90 (>60 ml/min/1.73 sqM); Anion Gap 4 mmol/L; Blood Urea Nitrogen 17 mg/dL (9-20); Calcium 8.6 mg/dL (8.4-10.2); Carbon Dioxide 29 mmol/L (22-30); Chloride 102 mmol/L (98-107); Glucose 145 mg/dL (74-99); Potassium 4.2 mmol/L (3.5-5.1); Sodium 135 mmol/L (137-145)
[2019-04-21 07:05] LABS: Glucose,Whole Blood 131 mg/dL (75-99)
[2019-04-21] MEDS: LINAGLIPTIN 5 MG TABLET PO SCH (07:10)
[2019-04-21] MEDS: metFORMIN 500 MG TAB PO SCH (07:10)
[2019-04-21] MEDS: INSULIN ASPART (NovoLOG) 100 UNIT/ML VIAL SQ SCH ×4 (07:10→12:54)
[2019-04-21] MEDS: APIXABAN 5 MG TAB PO SCH (07:56)
[2019-04-21] MEDS: ATORVASTATIN 40 MG TAB PO SCH (07:57)
[2019-04-21] MEDS: PANTOPRAZOLE 40 MG TABLET PO SCH (07:57)
[2019-04-21] MEDS: METOPROLOL TARTRATE 50 MG TAB PO SCH (07:57)
[2019-04-21] MEDS: BUDESONIDE 0.5 MG/2 ML NEBU INHALATION SCH (08:49)
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
[2019-04-21 12:04] LABS: Glucose,Whole Blood 223 mg/dL (75-99)
[2019-04-21 12:58] VITALS: BP 134/62; PULSE 89; RESP 14; TEMP 98.1
--- NOTE | 2019-04-21 13:12 | P.PN ---
Subjective Patient is resting comfortably in a chair. No dizziness lightheadedness palpitations no arrhythmias On examination blood pressure 1 34/6 2 mmHg normal respirations Heart rates in the 80s Afebrile 98.1F Heart sounds S1 and S2 normal no murmurs or gallops or rub Breath sounds are clear no rhonchi no crackles Abdomen is soft nontender Extremity is warm no edema Impression Idiopathic ventricular tachycardia from the inferoseptal LV wall/distal to the left posterior fascicle, status post successful VTablation History of atrial fibrillation History of atrial flutter History of factor V Leyden deficiency ELIQUIS 5 g twice daily is been started Dyslipidemia Type 2 diabetes Recurrent cough, patient Dr. Ho, awaiting workup Suggest Continue beta blockers for now 25 mg twice daily Losartan 25 mg twice daily Later reduce dose of beta blockers completely if stress test is normal Workup for CAD as an outpatient Objective - Vital Signs Vital signs: Vital Signs Temp 98.1 F 04/21/19 12:00 Pulse 89 04/21/19 12:00 Resp 14 04/21/19 12:00 BP 134/62 04/21/19 12:00 Pulse Ox 95 04/21/19 00:00 Intake & Output 04/20/19 04/21/19 04/21/19 18:59 06:59 18:59 Intake Total 100 100 Output Total 630 650 0 Balance -530 -550 0 Weight 124 kg 126 kg Intake: IV 100 Magnesium Sulfate-D5w Pmx 100 1 gm In Dextrose/Water 1 100ml.bag @ 100 mls/hr IVPB Q1H [facility] Rx#: [id number] Oral 100 Output: Urine 630 650 0 Other: Voiding Method Toilet Toilet Toilet Urinal Urinal Urinal # Voids 0 1 2 - Labs CBC & Chem 7: 04/21/19 04:55 04/21/19 04:56 Labs: Abnormal Lab Results - Last 24 Hours (Table) 04/20/19 04/20/19 04/21/19 Range/Units 16:36 20:37 04:55 RBC 3.88 L (4.30-5.90) m/uL Hgb 10.2 L (13.0-17.5) gm/dL Hct 33.0 L (39.0-53.0) % MCHC 30.9 L (31.0-37.0) g/dL RDW 16.4 H (11.5-15.5) % Sodium (137-145) mmol/L Glucose (74-99) mg/dL POC Glucose (mg/dL) 190 H 133 H (75-99) mg/dL 04/21/19 04/21/19 04/21/19 Range/Units 04:56 06:54 11:43 RBC (4.30-5.90) m/uL Hgb (13.0-17.5) gm/dL Hct (39.0-53.0) % MCHC (31.0-37.0) g/dL RDW (11.5-15.5) % Sodium 135 L (137-145) mmol/L Glucose 145 H (74-99) mg/dL POC Glucose (mg/dL) 131 H 223 H (75-99) mg/dL
[2019-04-21] MEDS: HYDROcodone/APAP 10-325MG 1 EACH TAB PO PRN (13:29)
--- NOTE | 2019-04-21 14:28 | P.DS ---
Providers Date of admission: 04/15/19 11:40 Expected date of discharge: 04/21/19 Attending physician: Andreas Peace Consults: 04/13/19 20:59 Consult Physician Routine Consulting Provider: Tamara Ho Consult Reason/Comments: known Do you want consulting provider notified?: Yes Consult Physician Routine Consulting Provider: Jacek Meeks Consult Reason/Comments: sob Do you want consulting provider notified?: Yes Primary care physician: Tamara Ho Hospital Course: Final Diagnosis Acute wide-complex tachycardia with right bundle morphology possible ventricular tachycardia Subacute cough with undetermined origin with possible congestive heart failure Paroxysmal atrial flutter with varying block Remote history of pulmonary embolism Shortness of breath Diabetes mellitus type 2, uncontrolled with hyperglycemia Hyperlipidemia Obesity with a body mass index of 39.2 Anemia of undetermined origin Hypomagnesemia DVT prophylaxis Discharge disposition Patient is being discharged in a stable condition with guarded prognosis to home and will follow-up with cardiology and primary care provider Dr. Ho upon discharge. Patient is being started on Eliquis 5mg twice daily upon discharge. Total time taken is 35 minutes. History of present illness This is a 73-year-old male who was admitted for subacute to chronic cough with some shortness of breath and was found to be in sustained V. tach and is being closely monitored. Patient was asymptomatic and cardiology was following closely. Multiple attempts of cardioversion were unsuccessful and patient underwent an EP study along with an ablation and was successful. Patient was on Coumadin due to previous history and will be going home on Eliquis 5 mg twice daily per cardiology recommendations. Currently patient condition is stable with much improvement and is looking forward to going home today. Patient denies any chest pain, shortness of breath, or palpitations at this time. Patient has been in sinus rhythm. Patient denies any nausea or vomiting and is tolerating diet. Patient has been afebrile. Patient has been up and walking with no difficulties. Patient follows Dr. Ho in the outpatient setting and will follow-up with him upon discharge. Patient will also follow-up with cardiology upon discharge for workup of CAD and stress test. Guarded prognosis On exam vital signs are stable. Temp is 98.1F, pulse is 89, respirations are 14, blood pressure is 134/62, oxygen saturation is 86% on room air. Cardio S1 and S2 are present. Respiratory system shows diminished breath sounds at the ba ses otherwise clear to auscultation. Abdomen is soft, obese, non-tender. Nervous system shows no focal deficits and gait is steady. Please refer to medication reconciliation sheet for a list of medications. Patient Condition at Discharge: Fair Plan - Discharge Summary Discharge Rx Participant: No New Discharge Prescriptions: New Apixaban [Eliquis] 5 mg PO BID 30 Days #60 tab metFORMIN HCL [Glucophage] 1,000 mg PO W/BRKFST tab Atorvastatin [Lipitor] 40 mg PO DAILY 30 Days #30 tab Metoprolol Tartrate [Lopressor] 50 mg PO BID 30 Days #60 tab Promethazine [Phenergan] 25 mg PO Q6HR PRN #12 tab PRN Reason: Cough Pantoprazole [Protonix] 40 mg PO BID 30 Days #60 tablet.dr Luna glipiZIDE XL [Glucotrol XL] 5 mg PO DAILY sitaGLIPtin PHOS/metFORMIN HCL [Janumet Xr 100-1,000 mg Tablet] 1 tab PO DAILY HYDROcodone/APAP 10-325MG [[place] 10-325] 1 tab PO Q4H PRN PRN Reason: Pain Benzonatate [Tessalon Perles] 200 mg PO TID PRN PRN Reason: Cough Discontinued Warfarin [Coumadin] 2.5 mg PO HS Discharge Medication List glipiZIDE XL [Glucotrol XL] 5 mg PO DAILY 01/03/17 [History] sitaGLIPtin PHOS/metFORMIN HCL [Janumet Xr 100-1,000 mg Tablet] 1 tab PO DAILY 01/03/17 [History] Benzonatate [Tessalon Perles] 200 mg PO TID PRN 02/21/19 [History] HYDROcodone/APAP 10-325MG [[place] 10-325] 1 tab PO Q4H PRN 02/21/19 [History] Apixaban [Eliquis] 5 mg PO BID 30 Days #60 tab 04/21/19 [Rx] Atorvastatin [Lipitor] 40 mg PO DAILY 30 Days #30 tab 04/21/19 [Rx] Metoprolol Tartrate [Lopressor] 50 mg PO BID 30 Days #60 tab 04/21/19 [Rx] Pantoprazole [Protonix] 40 mg PO BID 30 Days #60 tablet. 04/21/19 [Rx] Promethazine [Phenergan] 25 mg PO Q6HR PRN #12 tab 10/23/19 [Rx] metFORMIN HCL [Glucophage] 1,000 mg PO W/BRKFST tab 04/21/19 [Rx] Follow up Appointment(s)/Referral(s): Tamara Ho MD [Primary Care Provider] - 1-2 days (04/26/19 10:30 ) Herberth Howard MD [STAFF PHYSICIAN] - 2 Weeks (04/29/19 09:30 am) Patient Instructions/Handouts: Electrophysiology Study (DC), COPD (Chronic Obstructive Pulmonary Disease) (DC), Hypercoagulation (DC) Activity/Diet/Wound Care/Special Instructions: Activity Limited until follow-up Follow-up with primary care provider upon discharge Follow up with cardiology upon discharge Continue current medications Continue current diet Discharge Disposition: HOME SELF-CARE
== END 2019-04-21 14:57 | disposition home or self-care (01) | DRG 273 ==
LOC: EC 15:16 → 3SCARD 20:59 → 2SICU 04-15 11:18 → OBSVTOIN 04-15 11:40
PROVIDERS: ADMIT Hospitalist; ATTEND Hospitalist
PROC: 5A2204Z Restoration of Cardiac Rhythm, Single (ICD-10-PCS; 2019-04-15)
PROC: 02K83ZZ Map Conduction Mechanism, Percutaneous Approach (ICD-10-PCS; 2019-04-19)
PROC: B246ZZZ Ultrasonography of Right and Left Heart (ICD-10-PCS; 2019-04-19)
PROC: 02583ZZ Destruction of Conduction Mechanism, Percutaneous Approach (ICD-10-PCS; principal; 2019-04-19 11:00)
PROC: 5A2204Z Restoration of Cardiac Rhythm, Single (ICD-10-PCS; 2019-04-19 11:00)
PROC: 4A0234Z Measurement of Cardiac Electrical Activity, Percutaneous Approach (ICD-10-PCS; 2019-04-19 11:00)
DX: I47.2 Ventricular tachycardia (principal); I50.33 Acute on chronic diastolic (congestive) heart failure; D68.2 Hereditary deficiency of other clotting factors; D68.52 Prothrombin gene mutation; J44.1 Chronic obstructive pulmonary disease with (acute) exacerbation; N39.0 Urinary tract infection, site not specified; I48.3 Typical atrial flutter; I48.91 Unspecified atrial fibrillation; I45.10 Unspecified right bundle-branch block; E83.42 Hypomagnesemia; D64.9 Anemia, unspecified; E11.65 Type 2 diabetes mellitus with hyperglycemia; E66.9 Obesity, unspecified; E78.5 Hyperlipidemia, unspecified; I49.01 Ventricular fibrillation; J45.991 Cough variant asthma; J98.4 Other disorders of lung; K21.9 Gastro-esophageal reflux disease without esophagitis; M17.0 Bilateral primary osteoarthritis of knee; Z68.39 Body mass index [BMI] 39.0-39.9, adult; Z79.01 Long term (current) use of anticoagulants; Z79.84 Long term (current) use of oral hypoglycemic drugs; Z79.899 Other long term (current) drug therapy; Z80.0 Family history of malignant neoplasm of digestive organs; Z83.3 Family history of diabetes mellitus; Z86.711 Personal history of pulmonary embolism; Z86.718 Personal history of other venous thrombosis and embolism; Z87.440 Personal history of urinary (tract) infections; M19.042 Primary osteoarthritis, left hand; M19.041 Primary osteoarthritis, right hand; M47.9 Spondylosis, unspecified; Z88.7 Allergy status to serum and vaccine
CPT/HCPCS: 36410; 36415; 71046; 71275; 76937; 80048; 80053; 81001; 83735; 83880; 84439; 84443; 84484; 85025; 85027; 85347; 85379; 85610; 85730; 87077; 87086; 87186; 92960; 93005; 93306; 93620; 93623; 93662; 94640; 96365; 96366; 99285

== ENCOUNTER → 2019-06-21 | Outpatient (CLI) | payer MEDICARE ==
--- NOTE | 2019-06-21 12:13 | US ---
EXAMINATION TYPE: US scrotum with doppler. DATE OF EXAM: 06/21/2019 COMPARISON: Correlation CT 01/03/2017 CLINICAL HISTORY: 73-year-old male N45.3 Epididymo Orchitis. Patient taking antibiotics for about 1 m onth, swelling 1 month. Patient thinks he had his left testicle removed due to a hernia in around 200 1. TECHNIQUE: Grayscale and color Doppler Duplex imaging performed of the scrotum. FINDINGS: EXAM MEASUREMENTS: TESTICLES: Single Testicle: 4.1 x 2.4 x 1.9 cm Other Testicle: Surgically absent EPIDIDYMIS HEAD: Single Epididymis: 1.5 cm with a 5 mm cyst within Other Epididymis: Not visualized with certainty Doppler performed to assess for testicular vascularity; good color flow and waveforms are seen. The re is no evidence of testicular torsion to the single testicle. Presence of hydroceles: Yes, moderate on the right measuring 3.9 x 2.0 x 3.7 cm with some internal debris Presence of varicoceles: No definite varicocele Bulky echogenic area visualized in the left scrotal sac measuring 5.3 x 2.9 x 4.4 cm with internal bl ood vessels. IMPRESSION: 1. Single testicle after prior orchiectomy. No testicular torsion or sonographic features of epididym oorchitis. 2. Moderate-sized hydrocele with debris. 3. Bulky echogenic tissue within the left side of the scrotal sac measuring up to 5.3 cm with interna l blood vessels. A mass and herniated mesenteric fat are both in the differential though the latter i s favored. Correlate with physical exam findings. Follow-up as indicated.
== END | disposition home or self-care (01) ==
LOC: RADUSWWP 08:40
PROVIDERS: ATTEND Urology
DX: N43.2 Other hydrocele (principal); Z90.79 Acquired absence of other genital organ(s)
CPT/HCPCS: 76870; 93976

== ENCOUNTER → 2019-07-05 | Outpatient (CLI) | payer MEDICARE ==
--- NOTE | 2019-07-05 13:21 | CT ---
EXAMINATION TYPE: CT abdomen pelvis wo con DATE OF EXAM: 07/05/2019 COMPARISON: 01/03/2017 HISTORY: 73-year-old male with pain, Calculus of kidney. CT DLP: 1485.4 mGycm. Automated exposure control for dose reduction was used. TECHNIQUE: Contiguous axial scanning of the abdomen and pelvis without IV contrast. Coronal and sagit milton reconstructions performed. FINDINGS: Heart upper limits of normal in size with trace pericardial fluid. Coronary vessel calcifications are present throughout. Small right and trace left effusions are noted. Extensive generalized anasarca type changes. Mild perihepatic and perisplenic ascites. Liver enlarged at 22.6 cm and spleen is enlarged at 17.3 cm . Stable 2.0 cm gallstone. No abnormal gallbladder distention. Numerous bilateral renal cysts measuring up to 6.4 cm on the right. A 2.4 cm soft tissue density lesi on lower pole right kidney was also present in 2017 suggesting a hemorrhagic or proteinaceous cyst. There is a 1.6 cm triangular shaped calculus at the left UPJ. Mild to moderate pelvocaliectasis. Paco tional left-sided nephrolithiasis measuring up to 8 mm. Extensive edema within the renal sinus region and tracking down the left side of the abdomen and retroperitoneum. Extensive stranding and edema also present along the mesentery. Prostate gland measures 5.8 cm wide. Moderate circumferential bladder wall thickening. Extensive aubrey a tracks down the iliac chains. Moderate atherosclerotic calcifications throughout the abdominal aorta and iliac arteries. No dilated small bowel or free air. Oral contrast progressed to the rectum. Bones: Degenerative changes of the hips and SI joints as well as the mid to lower lumbar spine. IMPRESSION: 1. Correlate for fluid overload state given trace to small effusions, mild abdominal ascites, and ex tensive generalized anasarca changes. 2. An irregular 1.6 cm left UPJ calculus. There is mild hydronephrosis, not as much as would be expe cted with the position of the calculus. Given the extensive renal sinus edema, extensive edema tracki ng down the abdomen into the pelvis and also involving the mesentery, consider pyelosinus backflow wi th urine extravasation. 3. 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 Follow-up is recommended to assess for clearance. 4. Hepatosplenomegaly (liver 22.6 cm and spleen 17.3 cm). Stable 2.0 cm gallstone. Bilateral nephrol ithiasis and numerous bilateral renal cysts. 5. Moderate circumferential bladder wall thickening may represent chronic bladder wall hypertrophy i n the setting of BPH or cystitis.
== END | disposition home or self-care (01) ==
LOC: RADCTMAIN 10:29
PROVIDERS: ATTEND Urology
DX: N20.0 Calculus of kidney (principal); N13.5 Crossing vessel and stricture of ureter without hydronephrosis; R16.2 Hepatomegaly with splenomegaly, not elsewhere classified; R18.8 Other ascites
CPT/HCPCS: 74176

== ENCOUNTER → 2019-07-08 | Outpatient (CLI) | payer MEDICARE ==
[2019-07-08 10:21] LABS: Anisocytosis Slight; Basophils # (A) 0.2 k/uL (0-0.2); Basophils % (A) 2 %; Eosinophils # (A) 0.2 k/uL (0-0.7); Eosinophils % (A) 3 %; HCT 34.5 % (39.0-53.0); Hypochromasia Marked; Lymphocytes # (A) 0.9 k/uL (1.0-4.8); Lymphocytes % (A) 11 %; MCH 22.9 pg (25.0-35.0); MCHC 29.2 g/dL (31.0-37.0); MCV 78.5 fL (80.0-100.0); Mean Platelet Volume 6.5; Microcytosis Slight; Monocytes # (A) 0.5 k/uL (0-1.0); Monocytes % (A) 7 %; Neutrophils # (A) 6.1 k/uL (1.3-7.7); Neutrophils % (A) 76 %; Platelet Count 339 k/uL (150-450); RBC 4.39 m/uL (4.30-5.90); RDW 16.9 % (11.5-15.5); WBC 8.1 k/uL (3.8-10.6)
[2019-07-08 10:33] LABS: African American GFR (CKD) >90 (>60 ml/min/1.73 sqM); Anion Gap 8 mmol/L; Blood Urea Nitrogen 18 mg/dL (9-20); Calcium 9.4 mg/dL (8.4-10.2); Carbon Dioxide 29 mmol/L (22-30); Chloride 102 mmol/L (98-107); Glucose 132 mg/dL (74-99); Non-African American GFR(CKD) 87 (>60 ml/min/1.73 sqM); Potassium 4.9 mmol/L (3.5-5.1); Sodium 139 mmol/L (137-145)
== END | disposition home or self-care (01) ==
LOC: LABPAT 09:18
PROVIDERS: ATTEND Urology
DX: Z01.812 Encounter for preprocedural laboratory examination (principal); I10 Essential (primary) hypertension; E11.9 Type 2 diabetes mellitus without complications; N20.0 Calculus of kidney
CPT/HCPCS: 36415; 80048; 85025

== ENCOUNTER 2019-07-15 08:21 | Day surgery (SDC) | payer MEDICARE ==
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
[2019-07-13 12:44] VITALS: BMI 38.0
[~2019-07-15 08:21] MED LIST: DEXAMETHASONE SOD PHOSPHATE 10 MG/ML 1 ML VIAL IV ONE; HYDROmorphone 0.5 MG/0.5 ML SYRINGE IVP PRN; LACTATED RINGERS 1,000 ML IV SCH; MIDAZOLAM 2 MG/2 ML VIAL IV PRN; ONDANSETRON 4 MG/2 ML VIAL IVP ONE; ceFAZolin 3 GM in SODIUM CHLORIDE 0.9% 100 ML IVPB ONE
--- NOTE | 2019-07-15 08:43 | XR ---
EXAMINATION TYPE: XR KUB DATE OF EXAM: 07/15/2019 CLINICAL DATA: 73-year-old male kidney stones, presurgical evaluation COMPARISON: correlation CT 07/05/2019 FINDINGS: Bilateral nephrolithiasis redemonstrated. There are 3 calculi counted on the right measuring up to 8 mm. 3 calculi are counted on the left measuring up to 1.1 cm. A larger calculus is present at the left UPJ measuring up to 2.6 cm. Prominent air-filled loops of small and large bowel. Extensive vascular calcifications in the pelvis. A 2.8 cm right upper quadrant calcification likely gallstone. IMPRESSION: 1. Bilateral nephrolithiasis as above. 2. Larger 2.6 cm calculus on the left likely at the UPJ. 3. A 2.8 cm gallstone.
[2019-07-15 09:05] VITALS: TEMP 97.8
[2019-07-15] MEDS ORDERED: LIDOCAINE 1% 20 ML VIAL (10MG/ML) FOR IV START INTRADERMA ONE (09:16)
[2019-07-15 09:39] LABS: Glucose,Whole Blood 135 mg/dL (75-99)
[2019-07-15] MEDS ORDERED: fentaNYL (PF) 50 MCG/ML 2 ML AMP ONE (10:48)
[2019-07-15] MEDS ORDERED: SUCCINYLCHOLINE CHLORIDE 100 MG/5 ML SYR IV ONE (10:48)
[2019-07-15] MEDS ORDERED: MIDAZOLAM 2 MG/2 ML VIAL ONE (10:48)
[2019-07-15] MEDS ORDERED: PROPOFOL 10 MG/ML 20 ML VIAL IV ONE (10:48)
[2019-07-15] MEDS ORDERED: ePHEDrine SULFATE/0.9% NACL/PF 50 MG/5 ML SYRINGE IV ONE (10:48)
[2019-07-15] MEDS ORDERED: LIDOCAINE 1% INJ 10MG/ML (20 ML MDV) ONE (10:48)
[2019-07-15] MEDS ORDERED: PHENYLEPHRINE-0.9% NACL SYG 1 MG/10 ML SYRINGE ONE (10:48)
[2019-07-15] MEDS ORDERED: LACTATED RINGERS 1,000 ML IV ONE (12:31)
--- NOTE | 2019-07-15 13:53 | FL ---
EXAMINATION TYPE: FL urography retrograde DATE OF EXAM: 07/15/2019 COMPARISON: NONE HISTORY: Fluoroscopy TECHNIQUE: Fluoroscopy. FINDINGS: Fluoroscopic guidance was provided during procedure performed with 30 seconds utilized IMPRESSION: As Above.
[2019-07-15 14:00] VITALS: RESP 16
--- NOTE | 2019-07-15 14:08 | P.OP ---
Date of Procedure: 07/15/19 Preoperative Diagnosis: Left renal calculi Postoperative Diagnosis: Same Procedure(s) Performed: Cystoscopy, left retrograde pyelogram, left ureteroscopy with Holmium laser lithotripsy, left ureteral stent insertion Anesthesia: MARIANAA Surgeon: Pablo Anand Estimated Blood Loss (ml): 10 IV fluids (ml): 800 Pathology: none sent Condition: stable Disposition: PACU Indications for Procedure: The patient is a 73-year-old white male who presented with left scrotal swelling since early April 2019. He denies dysuria and hematuria. He denies flank pain. He has a history of urolithiasis. Examination has revealed left scrotal wall edema. Ultrasound suggested the possibility of a left inguinal hernia with intrascrotal extension of intra-abdominal contents. Therefore, a computed tomography scan of the abdomen and pelvis was obtained. This confirmed the presence of a left inguinal hernia. However, also noted was mild to moderate left hydronephrosis due to a 16 mm left UPJ calculus. Additional left renal calculi were seen, the largest being an 8 mm upper pole renal calculus. There was extensive edema within the left renal sinus extending into the left retroperitoneum. It is presumed he may have a ruptured fornix causing the extensive edema. Operative Findings: Large left renal pelvic calculus, smaller left upper pole renal calculus. Both fragmented completely. Description of Procedure: The patient was taken to the operating room and placed in the dorsolithotomy position, with legs supported in Patrice stirrups. The external genitalia was prepped and draped sterilely. The 30 lens was used to introduce the 19-Mozambican Stortz cystoscopic sheath through the urethra and into the bladder under direct vision. The prostatic urethra showed evidence of trilobar enlargement, with visual occlusion. The bladder was examined in its entirety. Both ureteral orifices were normal anatomic location and configuration. No tumors or foreign bodies were seen. Using a 10-Mozambican cone-tip catheter, a left retrograde pyelogram was performed. Fluoroscopy was utilized to visualize the ureter. The ureter was normal in caliber. The calculus was seen within the left renal pelvis as a filling defect. A 0.038 inch Glidewire was passed through the cystoscope. The left ureteral orifice was cannulated, and the Glidewire was advanced up to the left renal pelvis. An 11/13-Mozambican ureteral access catheter was passed over the wire, up to the mid ureter. The Olympus mini flexible ureteroscope was passed through the ureteral access catheter sheath and advanced under direct vision, up to the left renal pelvis. The calculus was readily visualized. The 200 micron Holmium laser probe was passed through the ureteroscope, and lithotripsy was performed using a dusting technique. The calculus began to fragment, and the calculus fragments migrated into to upper pole calyces. Lithotripsy was continued, using a pop [place] technique within the confined space of the calyx. This resulted in excellent fragmentation of the calculus fragments. The remaining calyces were then examined. The 8 mm upper pole calculus was identified, and this was also fragmented to completion. At this time, there was a considerable amount of debris within the renal pelvis and upper pole calyces. However, there did not appear to be any residual calculus fragments too large to pass. The ureteroscope was removed. The Glidewire was passed through the ureteral access catheter sheath and up to the left renal pelvis. The sheath was removed, and the Glidewire was backloaded into the cystoscope, which was passed into the bladder. A 28 cm, 6-Mozambican double-J ureteral stent was placed over the wire. Proper stent positioning was verified fluoroscopically and endoscopically. The bladder was emptied and the cystoscope removed. The patient tolerated the procedure well and was taken to the recovery room in stable condition. ELBERT ROCKS Report: Procedure Acuity: Elective Stone Size and Location: 16 mm, left UPJ Ureteral Dilation: No Ureteral Access Sheath Used: Yes Stone Sent for Analysis: No All Stones/Fragments Were Removed with a Basket: No Complications: No Preoperative Antibiotics Given: Yes Stent Placed: Yes If Stent Placed, Was String Left Attached: No If Stent Placed, When is it to be Removed: 2 weeks Discharge Medications: Tamsulosin
[2019-07-15 15:04] VITALS: BP 122/76; PULSE 92
== END 2019-07-15 15:22 | disposition home or self-care (01) ==
LOC: OR 08:21
PROVIDERS: ATTEND Urology
DX: N13.2 Hydronephrosis with renal and ureteral calculous obstruction (principal); Z87.442 Personal history of urinary calculi; K40.90 Unilateral inguinal hernia, without obstruction or gangrene, not specified as recurrent; E11.9 Type 2 diabetes mellitus without complications; E78.5 Hyperlipidemia, unspecified; M19.90 Unspecified osteoarthritis, unspecified site; Z86.711 Personal history of pulmonary embolism; D68.51 Activated protein C resistance; Z79.01 Long term (current) use of anticoagulants; Z83.3 Family history of diabetes mellitus; Z80.0 Family history of malignant neoplasm of digestive organs; Z87.891 Personal history of nicotine dependence; K21.9 Gastro-esophageal reflux disease without esophagitis; F32.9 Major depressive disorder, single episode, unspecified; Z79.84 Long term (current) use of oral hypoglycemic drugs; Z79.891 Long term (current) use of opiate analgesic; Z79.899 Other long term (current) drug therapy; Z88.7 Allergy status to serum and vaccine
CPT/HCPCS: 74420; 74018; 52356; C2625; C1758; C1769; J2250; J1100; J0690; J2405; J2001; J3010; J2370; J0330; J2704

== ENCOUNTER → 2019-07-29 | Outpatient (CLI) | payer MEDICARE ==
[2019-07-29 09:44] LABS: Anisocytosis Slight; Basophils # (A) 0.1 k/uL (0-0.2); Basophils % (A) 1 %; Eosinophils # (A) 0.2 k/uL (0-0.7); Eosinophils % (A) 3 %; HCT 37.4 % (39.0-53.0); HGB 10.5 gm/dL (13.0-17.5); Hypochromasia Marked; Lymphocytes # (A) 1.2 k/uL (1.0-4.8); Lymphocytes % (A) 20 %; MCH 23.2 pg (25.0-35.0); MCV 82.8 fL (80.0-100.0); Monocytes # (A) 0.4 k/uL (0-1.0); Monocytes % (A) 7 %; Neutrophils # (A) 3.9 k/uL (1.3-7.7); Neutrophils % (A) 66 %; Platelet Count 220 k/uL (150-450); RBC 4.52 m/uL (4.30-5.90); RDW 18.8 % (11.5-15.5); WBC 5.9 k/uL (3.8-10.6)
[2019-07-29 17:06] LABS: Ferritin 97.6 ng/mL (22.0-322.0)
[2019-07-29 17:16] LABS: % Iron Saturation 9.58 (15.00-50.00)
== END | disposition home or self-care (01) ==
LOC: LABWHC1 08:08
PROVIDERS: ATTEND Internal Medicine
DX: D64.9 Anemia, unspecified (principal); R53.1 Weakness
CPT/HCPCS: 36415; 82728; 83540; 83550; 85025

== ENCOUNTER → 2019-09-06 | Outpatient (CLI) | payer MEDICARE ==
--- NOTE | 2019-09-06 09:55 | CT ---
EXAMINATION TYPE: CT abdomen pelvis wo con DATE OF EXAM: 09/06/2019 COMPARISON: 07/05/2019 HISTORY: 73-year-old male hematuria, hernia CT DLP: 1569.5 mGycm. Automated exposure control for dose reduction was used. TECHNIQUE: Contiguous axial scanning of the abdomen and pelvis without IV contrast. Coronal and sagit milton reconstructions performed. FINDINGS: Heart upper limits of normal in size of pericardial effusion. Coronary vessel calcifications are pres ent. Moderate right and small left pleural effusions with adjacent atelectasis. Liver enlarged at 21.3 cm. Limited noncontrast assessment. Stable elongated 2.4 cm calcification in t he gallbladder fossa. The gallbladder is either absent or collapsed and not well-seen. Spleen enlarged at 17.8 cm. No gross abnormality of the noncontrast adrenal glands and pancreas. Generalized anasarca change with mild to moderate abdominopelvic ascites. Given noncontrast technique and anasarca changes, unable to exclude any retroperitoneal lymph nodes, for example, measuring 1.8 cm and the left retroperitoneum axial image 44. Additional underlying lymp hadenopathy in the aortocaval region measuring up to 1.7 cm, axial image 63. Multiple renal cysts are present, measuring up to 6.2 cm on the right, unchanged. An intermediate att enuating lesion from the lower pole of the right kidney measures 2.9 cm versus 2.7 cm on 07/05/2019. Th is measured 2.8 cm on 01/03/2017 suggesting a complicated cyst. A 3 mm nonobstructive right renal calculus. Approximately 5 nonobstructing left renal calculi measuri ng up to 4 mm. Area of extensive increased density within the retroperitoneum and bilateral renal sin us regions. Extensive soft tissue thickening along the retroperitoneum obscuring the planes with the IVC and dist al abdominal aorta and common iliac arteries. Unable to exclude the presence of hydronephrosis. Scattered prominent mesenteric lymph nodes measuring up to 1.1 cm C7 present previously as well. No dilated small bowel or free air. Xxct-mz-rpnptbpb stool with scattered diverticular change. Moderate circumferential bladder wall thickening. Prostate gland enlargement 5.8 cm wide. Bones: Degenerative changes of the hips and right SI joint. Prominent anterior endplate spondylosis t hroughout the spine. IMPRESSION: 1. Progressive anasarca change, new mild to moderate abdominopelvic ascites, and enlarging moderate right and small left effusions. 2. Extensive retroperitoneal soft tissue thickening persists extending down along the common iliac c hains. 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 D ensities extend into the bilateral renal sinus regions obscuring the collecting systems. Unable to as sess for the presence of hydronephrosis. 3. The previous left UPJ calculus seems to have cleared. Scattered nonobstructive bilateral renal ca lculi measuring up to 4 mm. 4. Possible underlying retroperitoneal lymphadenopathy measuring up to 1.8 cm, increasing from prior . 5. Redemonstrated hepatosplenomegaly (liver 21.3 cm and spleen 17.8 cm). Multiple bilateral renal cy sts redemonstrated measuring up to 6.2 cm (query possibility of underlying ADPCKD).
== END | disposition home or self-care (01) ==
LOC: RADCTMAIN 08:48
PROVIDERS: ATTEND Urology
DX: N28.1 Cyst of kidney, acquired (principal); N20.0 Calculus of kidney; R18.8 Other ascites; R16.2 Hepatomegaly with splenomegaly, not elsewhere classified; Z88.7 Allergy status to serum and vaccine
CPT/HCPCS: 74176

== ENCOUNTER → 2019-09-09 | Outpatient (CLI) | payer MEDICARE ==
[2019-09-09 08:24] LABS: Anisocytosis Slight; Basophils % (A) 0 %; Eosinophils # (A) 0.2 k/uL (0-0.7); Eosinophils % (A) 3 %; HCT 38.9 % (39.0-53.0); HGB 11.4 gm/dL (13.0-17.5); Hypochromasia Marked; Lymphocytes # (A) 1.1 k/uL (1.0-4.8); Lymphocytes % (A) 19 %; MCH 23.7 pg (25.0-35.0); MCHC 29.3 g/dL (31.0-37.0); MCV 80.9 fL (80.0-100.0); Mean Platelet Volume 7.4; Microcytosis Slight; Monocytes # (A) 0.6 k/uL (0-1.0); Monocytes % (A) 11 %; Neutrophils # (A) 3.6 k/uL (1.3-7.7); Neutrophils % (A) 65 %; Platelet Count 204 k/uL (150-450); WBC 5.6 k/uL (3.8-10.6)
[2019-09-09 11:33] LABS: T4, Free (Free Thyroxine) 1.3 ng/dL (0.80-1.80)
[2019-09-09 11:35] LABS: African American GFR (CKD) 85.6 (60.0-200.0); Albumin 3.5 g/dL (3.80-4.90); Albumin/Globulin Ratio 0.92 (1.60-3.17); Anion Gap 7.7 mmol/L (4.00-12.00); Calcium 9.3 mg/dL (8.7-10.3); Carbon Dioxide 27.3 mmol/L (21.6-31.8); Chol/HDL Ratio 2.79; Globulin 3.8 g/dL (1.6-3.3); LDL Cholesterol,Calculated 46.8 mg/dL (0.0-131.0); Non-African American GFR(CKD) 73.8 (60.0-200.0); Potassium 4.7 mmol/L (3.5-5.5); Total Bilirubin 0.5 mg/dL (0.2-1.2); Total Protein 7.3 g/dL (6.2-8.2); VLDL Calculation 12.2 mg/dL (5.00-40.00)
[2019-09-09 15:01] LABS: Hemoglobin A1C 5.7 % (4.0-6.0)
== END | disposition home or self-care (01) ==
LOC: LABWHC1 06:59
PROVIDERS: ATTEND Internal Medicine
DX: Z00.00 Encounter for general adult medical examination without abnormal findings (principal); I10 Essential (primary) hypertension; E11.9 Type 2 diabetes mellitus without complications; E78.5 Hyperlipidemia, unspecified
CPT/HCPCS: 36415; 80053; 80061; 83036; 84439; 84443; 85025

== ENCOUNTER → 2019-12-13 | Outpatient (CLI) | payer MEDICARE ==
--- NOTE | 2019-12-13 13:21 | CT ---
EXAMINATION TYPE: CT abdomen pelvis w con DATE OF EXAM: 12/13/2019 COMPARISON: CT abdomen and pelvis September 05, 2025 and older CTs HISTORY: Follow up exam per patient. Right lower quadrant pain and microscopic hematuria per order. CT DLP: 2654.3 mGycm, Automated Exposure Control for Dose Reduction was Utilized. CONTRAST: CT scan of the abdomen and pelvis is performed with oral and with IV Contrast, patient injected with 100 mL of Isovue 300. FINDINGS: LUNG BASES: Multiple tiny bilateral pleural effusions on current study with associated compressive at electasis. Coronary artery calcification and/or stents are present. LIVER/GB: Small calcified gallstone in contracted gallbladder axial image 29 with larger calculi post erior to this axial image 27 redemonstrated. Stable mildly prominent right hepatic lobe. PANCREAS: No significant abnormality is seen. SPLEEN: Persistent splenomegaly at 17.6 cm coronal image 68. ADRENALS: No significant abnormality is seen. KIDNEYS: On current study there are 2 calculi measuring 3 mm and the left kidney upper to midpole lev el axial image 33 posteriorly and anteriorly lower pole level axial image 43. There are multiple cyst s of varying size and shape scattered throughout both kidneys. Some cortical thinning is redemonstrat ed. There is symmetric cortical medullary uptake without visualized excretion bilaterally. There is p robable moderate to severe bilateral hydronephrosis likely from obstructive adenopathy. Some renal le sions are slightly more hyperdense than simple cysts, however represents anterior lower pole heteroge neous exophytic lesion axial image 47 measuring roughly 9.6 x 6.4 cm. Nonobstructing 3 mm right renal calculus midpole level coronal image 70 BOWEL: No significant abnormality is seen. PROSTATE/SEMINAL VESICLES: Enlarged prostate gland consistent with BPH. Some scattered calcifications . LYMPH NODES: Persistent abnormal enlarged retroperitoneal adenopathy becomes more confluent with the distal abdominal aorta level with inability to accurately measure lymph nodes due to confluent appear ance. Extension to the common iliac bifurcation with adenopathy encasing iliac vessels is felt presen t. Abnormal adenopathy and mild ill-defined fluid along the external iliac branches is seen. There ar e prominent subcentimeter bilateral groin lymph nodes. OSSEOUS STRUCTURES: No significant abnormality is seen. OTHER: Moderate to severe diffuse SUBCUTANEOUS edema and/or soft tissue anasarca redemonstrated. Rede monstration of atrophy of the lateral thigh muscles and posterior gluteal muscles IMPRESSION: Brkwuchy-fu-ffqypb diffuse soft tissue anasarca though fairly stable. Small to tiny bilat eral pleural effusions slightly improved from prior. 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 No significant change or progression likely from prior study.
== END | disposition home or self-care (01) ==
LOC: RADCTMAIN 10:48
PROVIDERS: ATTEND Urology
DX: R10.31 Right lower quadrant pain (principal); J90 Pleural effusion, not elsewhere classified; R31.1 Benign essential microscopic hematuria; R60.1 Generalized edema
CPT/HCPCS: 82565; 84520; 74177; 36415; Q9967

== ENCOUNTER → 2019-12-17 | Outpatient (CLI) | payer MEDICARE ==
[2019-12-17 07:53] LABS: Anisocytosis Slight; Basophils # (A) 0.1 k/uL (0-0.2); Basophils % (A) 1 %; Eosinophils # (A) 0.4 k/uL (0-0.7); Eosinophils % (A) 4 %; HCT 39.1 % (39.0-53.0); HGB 11.9 gm/dL (13.0-17.5); Hypochromasia Marked; Lymphocytes # (A) 1.3 k/uL (1.0-4.8); Lymphocytes % (A) 15 %; MCH 25.6 pg (25.0-35.0); MCHC 30.4 g/dL (31.0-37.0); Mean Platelet Volume 6.9; Monocytes # (A) 0.8 k/uL (0-1.0); Monocytes % (A) 9 %; Neutrophils # (A) 6.1 k/uL (1.3-7.7); Neutrophils % (A) 70 %; Platelet Count 241 k/uL (150-450); RBC 4.66 m/uL (4.30-5.90); RDW 18.1 % (11.5-15.5); WBC 8.8 k/uL (3.8-10.6)
[2019-12-17 13:05] LABS: African American GFR (CKD) 68.1 (60.0-200.0); Albumin 2.8 g/dL (3.80-4.90); Albumin/Globulin Ratio 0.62 (1.60-3.17); Anion Gap 4.8 mmol/L (4.00-12.00); BUN/Creat Ratio 13.33 Ratio (12.00-20.00); Calcium 8.6 mg/dL (8.7-10.3); Carbon Dioxide 27.2 mmol/L (21.6-31.8); Globulin 4.5 g/dL (1.6-3.3); Non-African American GFR(CKD) 58.8 (60.0-200.0); Potassium 4.4 mmol/L (3.5-5.5); Total Bilirubin 0.6 mg/dL (0.3-1.2); Total Protein 7.3 g/dL (6.2-8.2); Uric Acid 8.6 mg/dL (3.7-8.7)
== END | disposition home or self-care (01) ==
LOC: LABWHC1 07:16
PROVIDERS: ATTEND Internal Medicine
DX: M10.9 Gout, unspecified (principal); R53.1 Weakness
CPT/HCPCS: 36415; 80053; 84439; 84443; 84550; 85025

== ENCOUNTER → 2019-12-30 | Outpatient (CLI) | payer MEDICARE ==
--- NOTE | 2019-12-30 14:43 | US ---
EXAMINATION TYPE: US abdomen limited DATE OF EXAM: 12/30/2019 COMPARISON: NONE CLINICAL HISTORY: R18.8 Ascites. edematous abdomen for the past 5 months All four quadrants scanned and no fluid collection seen. IMPRESSION: As above.
== END | disposition home or self-care (01) ==
LOC: RADUSWWP 11:06
PROVIDERS: ATTEND Internal Medicine
DX: R18.8 Other ascites (principal)
CPT/HCPCS: 76705

== ENCOUNTER → 2020-07-07 | Outpatient (CLI) | payer MEDICARE ==
--- NOTE | 2020-07-07 10:33 | CT ---
EXAMINATION TYPE: CT abdomen pelvis w con DATE OF EXAM: 07/07/2020 COMPARISON: CT abdomen and pelvis December 13, 2019 and older CTs HISTORY: Enlarged lymph nodes CT DLP: 2075.20 mGycm, Automated Exposure Control for Dose Reduction was Utilized. CONTRAST: CT scan of the abdomen and pelvis is performed with oral and with IV Contrast, patient injected with 100 ml mL of Isovue 300. FINDINGS: LUNG BASES: Right coronary artery calcification and/or stent redemonstrated. LIVER/GB: Dependent calcification in the gallbladder extending towards gallbladder neck possible larg e calculus unchanged from 2017. Liver remains heterogeneously hypodense with prominent right hepatic lobe redemonstrated PANCREAS: No significant abnormality is seen. SPLEEN: Persistent stable splenomegaly at 17.2 cm coronal image 69. ADRENALS: No significant abnormality is seen. KIDNEYS: There are occasional tiny nonobstructing calculus redemonstrated scattered throughout the ri ght kidney. There are multiple thin-walled cysts of varying size and shape redemonstrated throughout both kidneys. Persistent moderate to severe bilateral hydronephrosis. Findings presumed the basis of mass effect from abnormal retroperitoneal adenopathy. Persistent delayed or absent excretion. BOWEL: Oral contrast reaches level of left colon. No suspicious small or large bowel dilatation mild- to-moderate diffuse colonic fecal prominence. PROSTATE/SEMINAL VESICLES: Enlarged prostate gland consistent with BPH is redemonstrated. LYMPH NODES: Persistent abnormal enlarged retroperitoneal adenopathy becomes more confluent with the distal abdominal aorta level with inability to accurately measure lymph nodes due to confluent appea mick. Extension to the common iliac bifurcation with adenopathy encasing iliac vessels is redemonstr ated near axial image 55. Moderate surrounding ill-defined fluid redemonstrated. Abnormal adenopathy and mild ill-defined fluid along the external iliac branches is seen. There are prominent subcentimet er bilateral groin lymph nodes. OSSEOUS STRUCTURES: Moderate multilevel spurring in the spine. Moderate axial joint space loss in bot h hips. OTHER: Asymmetric right lateral proximal thigh muscle atrophy. Mild diffuse subcutaneous edema is imp roved. IMPRESSION: Persistent abnormal confluent soft tissue and/or adenopathy favoring lymphoma in the mid to lower abdomen extending into the pelvis causing moderate to severe bilateral hydronephrosis. Stabl e splenomegaly. No significant change from most recent CT. Correlated clinically.
== END | disposition home or self-care (01) ==
LOC: RADCTMAIN 08:02
PROVIDERS: ATTEND Internal Medicine
DX: N13.30 Unspecified hydronephrosis (principal); R16.1 Splenomegaly, not elsewhere classified
CPT/HCPCS: 82565; 84520; 74177; 36415; Q9967

== ENCOUNTER → 2020-08-03 | Outpatient (CLI) | payer MEDICARE ==
--- NOTE | 2020-08-03 15:14 | US ---
EXAMINATION TYPE: US kidneys/renal and bladder DATE OF EXAM: 08/03/2020 COMPARISON: NONE CLINICAL HISTORY: N13.2 Hydronephrosis. Hydronephrosis EXAM MEASUREMENTS: Right Kidney: 12.9 x 6.1 x 6.0 cm Left Kidney: 10.1 x 3.8 x 4.1 cm Post Void Residual Volume: mL Right Kidney: Multiple cysts seen largest lower pole measuring 6.8 x 5.3 x 6.8 cm and 6.4 x 5.3 x 5.4 cm Left Kidney: Multiple cysts seen largest lower pole 5.0 x 2.9 x 4.7 cm. Bladder: anechoic Bilateral Jets seen: no IMPRESSION: Multiple bilateral renal cysts. No hydronephrosis identified
[2020-08-03 15:20] LABS: Basophils # (A) 0.1 k/uL (0-0.2); Basophils % (A) 1 %; Eosinophils # (A) 0.1 k/uL (0-0.7); Eosinophils % (A) 1 %; HCT 45.2 % (39.0-53.0); Lymphocytes # (A) 1.5 k/uL (1.0-4.8); Lymphocytes % (A) 11 %; MCH 29.8 pg (25.0-35.0); MCHC 33.1 g/dL (31.0-37.0); MCV 89.9 fL (80.0-100.0); Mean Platelet Volume 7.5; Monocytes # (A) 0.8 k/uL (0-1.0); Monocytes % (A) 6 %; Neutrophils # (A) 11.6 k/uL (1.3-7.7); Neutrophils % (A) 82 %; Platelet Count 105 k/uL (150-450); RBC 5.03 m/uL (4.30-5.90); RDW 13.4 % (11.5-15.5); WBC 14.1 k/uL (3.8-10.6)
[2020-08-03 15:31] LABS: ALT 18 U/L (4-49); AST 19 U/L (17-59); African American GFR (CKD) >90 (>60 ml/min/1.73 sqM); Albumin 3.9 g/dL (3.5-5.0); Alkaline Phosphatase 98 U/L (38-126); Anion Gap 6 mmol/L; Blood Urea Nitrogen 17 mg/dL (9-20); Calcium 9.4 mg/dL (8.4-10.2); Carbon Dioxide 28 mmol/L (22-30); Chloride 100 mmol/L (98-107); Glucose 340 mg/dL (74-99); Non-African American GFR(CKD) 81 (>60 ml/min/1.73 sqM); Potassium 4.6 mmol/L (3.5-5.1); Sodium 134 mmol/L (137-145); Total Bilirubin 1.2 mg/dL (0.2-1.3); Total Protein 7.5 g/dL (6.3-8.2)
[2020-08-03 16:03] LABS: Erythrocyte Sedimentation Rate 16 mm/hr (0-15)
== END | disposition home or self-care (01) ==
LOC: RADUSWWP 14:21
PROVIDERS: ATTEND Internal Medicine
DX: N28.1 Cyst of kidney, acquired (principal); N13.30 Unspecified hydronephrosis; R59.1 Generalized enlarged lymph nodes
CPT/HCPCS: 76770; 80053; 85025; 85652

== ENCOUNTER → 2020-09-15 | Outpatient (CLI) | payer MEDICARE ==
[2020-09-15 22:20] LABS: Hemoglobin A1C 9.6 % (4.0-6.0)
== END | disposition home or self-care (01) ==
LOC: LABWHC1 13:01
PROVIDERS: ATTEND Internal Medicine
DX: E11.9 Type 2 diabetes mellitus without complications (principal)
CPT/HCPCS: 36415; 83036

== ENCOUNTER → 2020-09-15 | Outpatient (CLI) | payer MEDICARE ==
[2020-09-15 14:41] LABS: HCT 46.2 % (39.0-53.0); HGB 15.3 gm/dL (13.0-17.5); MCH 29.6 pg (25.0-35.0); MCHC 33.1 g/dL (31.0-37.0); MCV 89.3 fL (80.0-100.0); Mean Platelet Volume 7.3; Platelet Count 115 k/uL (150-450); RBC 5.17 m/uL (4.30-5.90); RDW 13.5 % (11.5-15.5)
[2020-09-15 14:50] LABS: Potassium 4.6 mmol/L (3.5-5.1)
== END | disposition home or self-care (01) ==
LOC: LABPAT 13:40
PROVIDERS: ATTEND Internal Medicine Clinical Cardiac Electrophysiology
DX: Z01.812 Encounter for preprocedural laboratory examination (principal); I48.3 Typical atrial flutter
CPT/HCPCS: 36415; 80051; 82565; 84520; 85027

== ENCOUNTER 2020-10-03 08:20 | Day surgery (SDC) | payer MEDICARE ==
[2020-09-27 10:07] VITALS: BMI 36.5
[2020-10-03] MEDS: SODIUM CHLORIDE 0.9% 1,000 ML IV SCH (08:55)
[2020-10-03 09:05] LABS: Glucose,Whole Blood 197 mg/dL (75-99)
[2020-10-03] MEDS ORDERED: fentaNYL (PF) 50 MCG/ML 2 ML AMP ONE (09:30)
[2020-10-03] MEDS ORDERED: GLYCOPYRROLATE 0.2 MG/ML 2 ML VIAL ONE (09:30)
[2020-10-03] MEDS ORDERED: NEOSTIGMINE 1 MG/ML 10 ML VIAL ONE (09:30)
[2020-10-03] MEDS ORDERED: ceFAZolin 1,000 MG VIAL ONE (09:30)
[2020-10-03] MEDS ORDERED: SUCCINYLCHOLINE CHLORIDE VIAL 200 MG/10 ML VIAL IV ONE (09:30)
[2020-10-03] MEDS ORDERED: WATER FOR INJECTION, STERILE 10 ML VIAL IV ONE (09:30)
[2020-10-03] MEDS ORDERED: PROPOFOL 10 MG/ML 20 ML VIAL IV ONE (09:30)
[2020-10-03] MEDS ORDERED: ROCURONIUM 10 MG/ML (5 ML VIAL) IV ONE (09:30)
[2020-10-03] MEDS ORDERED: ePHEDrine SULFATE/0.9% NACL/PF 50 MG/5 ML SYRINGE IV ONE (09:30)
[2020-10-03] MEDS ORDERED: ISOPROTERENOL 250 MCG/1.25 ML SYR IV ONE (09:30)
[2020-10-03] MEDS ORDERED: PHENYLEPHRINE-0.9% NACL SYG 1,000 MCG/10 ML SYRINGE ONE (09:30)
[2020-10-03] MEDS ORDERED: MIDAZOLAM 2 MG/2 ML VIAL ONE (09:30)
[2020-10-03] MEDS ORDERED: SODIUM CHLORIDE 0.9% 100 ML BAG ONE (09:30)
[2020-10-03 09:41] LABS: Basophils # (A) 0.1 k/uL (0-0.2); Basophils % (A) 1 %; Eosinophils # (A) 0.2 k/uL (0-0.7); Eosinophils % (A) 4 %; HCT 40.7 % (39.0-53.0); HGB 14.4 gm/dL (13.0-17.5); Lymphocytes # (A) 1.7 k/uL (1.0-4.8); Lymphocytes % (A) 28 %; MCH 31.5 pg (25.0-35.0); MCHC 35.3 g/dL (31.0-37.0); MCV 89.1 fL (80.0-100.0); Monocytes # (A) 0.7 k/uL (0-1.0); Monocytes % (A) 12 %; Neutrophils # (A) 3.3 k/uL (1.3-7.7); Neutrophils % (A) 54 %; Platelet Count 118 k/uL (150-450); RBC 4.57 m/uL (4.30-5.90); RDW 13.8 % (11.5-15.5)
[2020-10-03] MEDS ORDERED: LIDOCAINE 1% INJ 10MG/ML (20 ML MDV) ONE (09:52)
[2020-10-03] MEDS ORDERED: LIDOCAINE 1% INJ 10MG/ML (20 ML MDV) SQ ONE (10:15)
[2020-10-03] MEDS ORDERED: HEPARIN SODIUM (1,000 UNIT/ML) 1,000 UNIT in SODIUM CHLORIDE 0.9% 1,000 ML IRRIGATION ONE (11:44)
[2020-10-03 12:19] LABS: Glucose,Whole Blood 170 mg/dL (75-99)
[2020-10-03] MEDS ORDERED: ACETAMINOPHEN TAB 325 MG TAB PO PRN (12:56)
[2020-10-03] MEDS ORDERED: ACETAMINOPHEN IV (For NPO) 1,000 MG in EMPTY BAG 1 BAG IVPB ONE (13:15)
[2020-10-03] MEDS: HYDROcodone/APAP 5-325MG 1 EACH TAB PO PRN ×2 (14:59→22:24)
--- NOTE | 2020-10-03 15:31 | P.EPCON ---
Electrophysiology Consult - EP Consult Electrophysiology Consult: Diagnosis sustained typical atrial flutter with RVR [facility] Procedure Successful atrial flutter ablation/diagnostic EP study Procedure details Patient was brought to the EP lab in fasting state. Written informed consent was obtained prior to the procedure. The procedure was performed under general anesthesia Venous sheaths were placed in the right femoral vein. Via these catheters placed in the high right atrium His bundle area right ventricle and right atrial isthmus as well as coronary sinus Patient was an tachycardia at the start of the study, tachycardia cycle length 270 ms Later after successful ablation when the patient was in sinus rhythm, sinus cycle length was 1056 ms, IN interval 193 ms, QRS 90 ms and QT interval 434 ms. AH interval 86 ms and HV interval 46 ms 3-D ultrasound on mapping was performed Intracardiac echo revealed absence of any pericardial effusion. No thrombus in the left atrial appendage Cavo tricuspid isthmus was mapped RF ablation was performed. Good contact force and power Complete line of block was made. Bidirectional block was proven with differential pacing at the end of the procedure Following that in EP study is performed AV node Wenckebach block 400 ms VA Wenckebach block greater than 600 ms Sinus recovery times at a pacing cycle length of 600, 504 100 ms were 1380, 1498 and 1592 ms. Corresponding currently sinus recovery times a minute prolonged Atrial extra stimulation was performed Atrial ERP 600\3:30 milliseconds Isuprel was started no arrhythmias were induced AV node Wenckebach block 340 ms All sheaths were removed. Hemostasis was assured Patient was extubated and transferred to recovery Procedures performed Comprehensive diagnostic EP study CS pacing and recording Programmed stimulation following Isuprel 3-D Mapping RF ablation, atrial Intracardiac echo
--- NOTE | 2020-10-03 15:43 | P.PRLE ---
RE: Wai Walker Dear Vivien Mr. Walker underwent successful atrial flutter Complete bidirectional block was proven across the line He will continue anticoagulants unchanged and postprocedure his beta adrian dose will be readjusted Thank you for entrusting me with the care of the patient Warm regards Sincerely Herberth Howard
[2020-10-03 17:07] LABS: Glucose,Whole Blood 146 mg/dL (75-99)
[2020-10-03 19:30] LABS: Glucose,Whole Blood 187 mg/dL (75-99)
[2020-10-03 20:24] LABS: Glucose,Whole Blood 186 mg/dL (75-99)
[2020-10-03] MEDS: APIXABAN 5 MG TAB PO SCH (20:32)
[2020-10-03] MEDS: METOPROLOL TARTRATE 50 MG TAB PO SCH (20:32)
[2020-10-03] MEDS: SULFAMETHOX-TMP 800-160MG 1 EACH TAB PO SCH (20:37)
[2020-10-03] MEDS ORDERED: ATORVASTATIN 40 MG TAB PO SCH (21:00)
[2020-10-03] MEDS ORDERED: INSULIN DETEMIR (LEVEMIR) 100 UNIT/ML SYR SQ SCH (21:00)
[2020-10-04 06:49] LABS: Glucose,Whole Blood 154 mg/dL (75-99)
[2020-10-04 08:19] VITALS: BP 129/72; PULSE 73; TEMP 98
[2020-10-04] MEDS: SULFAMETHOX-TMP 800-160MG 1 EACH TAB PO SCH (08:58)
[2020-10-04] MEDS: METOPROLOL TARTRATE 50 MG TAB PO SCH (08:58)
[2020-10-04] MEDS: APIXABAN 5 MG TAB PO SCH (08:59)
[2020-10-04] MEDS ORDERED: LINAGLIPTIN 5 MG TABLET PO SCH (09:00)
[2020-10-04] MEDS ORDERED: [UNRECOGNIZED DRUG - OTHER] PO SCH (09:00)
[2020-10-04] MEDS ORDERED: NYSTATIN 100,000 UNIT/GM POWD 15 GM TOPICAL SCH (09:00)
[2020-10-04] MEDS ORDERED: PANTOPRAZOLE 40 MG TABLET PO SCH (09:00)
[2020-10-04] MEDS ORDERED: LOSARTAN 25 MG TAB PO SCH (09:00)
[2020-10-04] MEDS ORDERED: metFORMIN 500 MG TAB PO SCH (09:00)
[2020-10-04] MEDS ORDERED: METFORMIN HCL PO SCH (09:00)
[2020-10-04] MEDS ORDERED: SITAGLIPTIN PHOS PO SCH (09:00)
[2020-10-04] MEDS: SODIUM CHLORIDE 0.9% 1,000 ML IV SCH (09:06)
[2020-10-04 10:16] VITALS: RESP 17
--- NOTE | 2020-10-04 15:33 | P.DS ---
Providers Expected date of discharge: 10/04/20 Attending physician: Herberth Howard Primary care physician: [facility] Course: This is a 74-year-old male with sustained typical atrial flutter with RVR. Patient underwent successful atrial flutter ablation with Dr. Howard yesterday. Patient remains in sinus mechanism this morning. He denies chest pain or pressure. Denies shortness of breath. Groin site clean dry intact with no hematoma noted. Vital signs are stable. The patient was deemed stable for discharge home today per Dr. Howard. He is to follow up outpatient in 1-2 weeks. Discharge Diagnosis Sustained typical atrial flutter with RVR, status post successful atrial flutter ablation Nurse practitioner note has been reviewed by physician. Signing provider agrees with the documented findings, assessment, and plan of care. Plan - Discharge Summary Discharge Rx Participant: No New Discharge Prescriptions: New Nystatin 100,000 Unit/gm Powd [Mycostatin Powder] 1 applic TOPICAL TID #1 bottle Continue sitaGLIPtin PHOS/metFORMIN HCL [Janumet Xr 100-1,000 mg Tablet] 1 tab PO DAILY Apixaban [Eliquis] 5 mg PO BID 30 Days #60 tab Metoprolol Tartrate [Lopressor] 50 mg PO BID Omeprazole 20 mg PO DAILY Sulfamethox-Tmp 800-160Mg [Bactrim DS 800-160 mg] 1 tab PO Q12HR Insulin Glargine,Hum.rec.anlog [Lantus Solostar] 30 unit SQ HS Atorvastatin [Lipitor] 40 mg PO HS Losartan Potassium [Cozaar] 12.5 mg PO DAILY Discharge Medication List sitaGLIPtin PHOS/metFORMIN HCL [Janumet Xr 100-1,000 mg Tablet] 1 tab PO DAILY 01/03/17 [History] Apixaban [Eliquis] 5 mg PO BID 30 Days #60 tab 04/21/19 [Rx] Metoprolol Tartrate [Lopressor] 50 mg PO BID 07/13/19 [History] Omeprazole 20 mg PO DAILY 07/13/19 [History] Atorvastatin [Lipitor] 40 mg PO HS 09/27/20 [History] Insulin Glargine,Hum.rec.anlog [Lantus Solostar] 30 unit SQ HS 09/27/20 [History] Losartan Potassium [Cozaar] 12.5 mg PO DAILY 09/27/20 [History] Sulfamethox-Tmp 800-160Mg [Bactrim DS 800-160 mg] 1 tab PO Q12HR 09/27/20 [History] Nystatin 100,000 Unit/gm Powd [Mycostatin Powder] 1 applic TOPICAL TID #1 bottle 10/04/20 [Rx] Follow up Appointment(s)/Referral(s): Herberth Howard MD [STAFF PHYSICIAN] - 2 Weeks (Office will call pt with appointment ) Patient Instructions/Handouts: Cardiac Ablation (DC) Activity/Diet/Wound Care/Special Instructions: Post EP study - Ablation instructions 1. Keep access sites dry for 2 days. 2. No heavy lifting or straining for 2 days. 3. Avoid bending the hips repeatedly for 2 days. 4. You may go up and down stairs slowly Call if the following is noted 1. Bleeding, increasing swelling or pain at the access sites. 2. Increasing chest discomfort, especially upon taking a deep breath. 3. Increasing shortness of breath, at rest or with exertion. 4. Undue cough / phlegm 5. Difficulty or pain while swallowing. 6. Pain or change in color in the extremities. 7. Fever, chills, rigors. 8. Increasing headache or neurologic symptoms. 9. Dizziness, fainting, palpitations Discharge Disposition: HOME SELF-CARE
== END 2020-10-04 12:45 | disposition home or self-care (01) ==
LOC: CATHEP 08:20 → 6NMEDSUR 11:38 → CATHEP 10-04 12:45
PROVIDERS: ATTEND Internal Medicine Clinical Cardiac Electrophysiology
DX: I48.4 Atypical atrial flutter (principal); I47.2 Ventricular tachycardia; I48.0 Paroxysmal atrial fibrillation; I10 Essential (primary) hypertension; E78.5 Hyperlipidemia, unspecified; E11.9 Type 2 diabetes mellitus without complications; I45.5 Other specified heart block; Z79.01 Long term (current) use of anticoagulants; Z72.0 Tobacco use; Z79.84 Long term (current) use of oral hypoglycemic drugs; Z79.899 Other long term (current) drug therapy; Z79.02 Long term (current) use of antithrombotics/antiplatelets; Z88.7 Allergy status to serum and vaccine; Z98.890 Other specified postprocedural states; Z87.828 Personal history of other (healed) physical injury and trauma; Z96.651 Presence of right artificial knee joint; Z82.49 Family history of ischemic heart disease and other diseases of the circulatory system
CPT/HCPCS: 93623; 93662; 93613; 93653; 85025; C1894; C1769 ×2; C1730; C1759; C1732; J2250; J0330; J2710; J0690; J2001; J3010; J1644; J2370; J2704

== ENCOUNTER 2020-10-15 11:58 | Emergency (ER) | payer MEDICARE ==
[2020-10-15 12:10] VITALS: BP 129/65; PULSE 66; RESP 18; TEMP 98
[2020-10-15] MEDS ORDERED: HYDROmorphone 1 MG/ML 1 ML SYRINGE IVP STA (12:19)
[2020-10-15 12:54] LABS: Basophils # (A) 0.1 k/uL (0-0.2); Basophils % (A) 1 %; Eosinophils # (A) 0.2 k/uL (0-0.7); Eosinophils % (A) 4 %; HCT 37.8 % (39.0-53.0); HGB 12.6 gm/dL (13.0-17.5); Lymphocytes # (A) 0.9 k/uL (1.0-4.8); Lymphocytes % (A) 16 %; MCH 29.7 pg (25.0-35.0); MCHC 33.4 g/dL (31.0-37.0); MCV 88.8 fL (80.0-100.0); Mean Platelet Volume 7.7; Monocytes # (A) 0.4 k/uL (0-1.0); Monocytes % (A) 7 %; Neutrophils % (A) 72 %; Platelet Count 108 k/uL (150-450); RBC 4.25 m/uL (4.30-5.90); RDW 13.7 % (11.5-15.5); WBC 5.6 k/uL (3.8-10.6)
[2020-10-15 13:05] LABS: ALT 16 U/L (4-49); AST 19 U/L (17-59); African American GFR (CKD) >90 (>60 ml/min/1.73 sqM); Albumin 3.6 g/dL (3.5-5.0); Alkaline Phosphatase 71 U/L (38-126); Anion Gap 9 mmol/L; Blood Urea Nitrogen 24 mg/dL (9-20); Calcium 9.2 mg/dL (8.4-10.2); Carbon Dioxide 25 mmol/L (22-30); Chloride 105 mmol/L (98-107); Glucose 240 mg/dL (74-99); Non-African American GFR(CKD) 79 (>60 ml/min/1.73 sqM); Potassium 4.8 mmol/L (3.5-5.1); Sodium 139 mmol/L (137-145); Total Bilirubin 0.6 mg/dL (0.2-1.3); Total Protein 6.7 g/dL (6.3-8.2)
--- NOTE | 2020-10-15 13:24 | CT ---
EXAMINATION TYPE: CT abdomen pelvis wo con DATE OF EXAM: 10/15/2020 HISTORY: Lt flank pain CT DLP: 1684 mGycm. Automated Exposure Control for Dose Reduction was Utilized. TECHNIQUE: CT scan of the abdomen and pelvis is performed without oral or IV contrast. COMPARISON: CT abdomen and pelvis July 07, 2020 and older studies. FINDINGS: Within the limitations of a non-contrast study, the following observations are made. LUNG BASES: New tiny left pleural effusion. New small right pleural effusion with associated compress negar atelectasis coronary artery calcification and/or stents. LIVER/GB: Dependent calcification in the gallbladder extending towards gallbladder neck, possible lob ulated calculus is redemonstrated and stable. Somewhat prominent right hepatic lobe redemonstrated. PANCREAS: No significant abnormality is seen. SPLEEN: Spleen less prominent at 14.9 cm coronal image 76 current study. ADRENALS: No significant abnormality is seen. KIDNEYS: There are occasional tiny nonobstructing calculus redemonstrated scattered throughout bilate ral kidneys. There are multiple thin-walled cysts of varying size and shape redemonstrated throughout both kidneys. Persistent moderate left-sided hydronephrosis fairly stable. Improved right-sided hydr onephrosis. BOWEL: No suspicious new small or large bowel dilatation. Persistent mild diffuse colonic fecal promi nence. PROSTATE/SEMINAL VESICLES: Enlarged prostate gland consistent with BPH is redemonstrated. LYMPH NODES: Persistent abnormal enlarged focal and confluent retroperitoneal adenopathy with inabi lity to accurately measure lymph nodes due to confluent appearance. Extension to the common iliac bif urcation with adenopathy surrounding iliac vessels is redemonstrated near axial image 98 current stud y. Hqxg-tj-dohcpyii surrounding ill-defined fluid redemonstrated. Abnormal adenopathy and mild ill-de fined fluid along the external iliac branches is seen. There are prominent subcentimeter bilateral gr oin lymph nodes redemonstrated. OSSEOUS STRUCTURES: Moderate to severe multilevel anterior and lateral spurring in the spine. Moderat e axial joint space loss in both hips is redemonstrated. OTHER: Asymmetric right lateral proximal thigh muscle atrophy. Moderate to severe atherosclerotic emma nge of aorta extends into branch vessels IMPRESSION: Persistent abnormal confluent soft tissue and/or adenopathy favoring lymphoma in the mid to lower abdomen extending into the pelvis causing persistent moderate left-sided hydronephrosis. Imp roved right-sided hydronephrosis and splenomegaly noted. No significant worsening findings from most recent CT. Correlate clinically.
[2020-10-15 13:45] LABS: Bacteria,Urine Few /hpf; RBC,Urine >182 /hpf (0-5); WBC,Urine 32 /hpf (0-5)
[2020-10-15 13:48] LABS: Appearance,Urine Bloody (Clear)
[2020-10-15 13:49] LABS: Color,Urine Dark Red
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
== END 2020-10-15 14:18 | disposition home or self-care (01) ==
LOC: EC 11:58
DX: N13.30 Unspecified hydronephrosis (principal); E11.9 Type 2 diabetes mellitus without complications; E78.5 Hyperlipidemia, unspecified; Z79.4 Long term (current) use of insulin; Z86.711 Personal history of pulmonary embolism
CPT/HCPCS: 36415; 80053; 85025; 81001; 87086; 74176; 99284; 96374; J1170

== ENCOUNTER → 2020-11-22 | Outpatient (CLI) | payer MEDICARE ==
[2020-11-22 07:42] LABS: HCT 37.9 % (39.0-53.0); HGB 12.6 gm/dL (13.0-17.5); Hypochromasia Slight; MCH 29.6 pg (25.0-35.0); MCHC 33.2 g/dL (31.0-37.0); MCV 89.1 fL (80.0-100.0); Mean Platelet Volume 7.8; Platelet Count 103 k/uL (150-450); RBC 4.25 m/uL (4.30-5.90); RDW 13.9 % (11.5-15.5); WBC 6.5 k/uL (3.8-10.6)
== END ==
LOC: LABPAT 07:02
PROVIDERS: ATTEND Urology
DX: Z01.818 Encounter for other preprocedural examination (principal); R31.0 Gross hematuria; N13.30 Unspecified hydronephrosis; E11.9 Type 2 diabetes mellitus without complications
CPT/HCPCS: 80048; 85027; 87086

== ENCOUNTER 2020-11-29 12:14 | Day surgery (SDC) | payer MEDICARE ==
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
[2020-11-24 15:07] VITALS: BMI 37.3
[2020-11-29] MEDS ORDERED: HYDROmorphone 0.5 MG/0.5 ML SYRINGE IVP PRN (12:26)
[2020-11-29] MEDS ORDERED: ONDANSETRON 4 MG/2 ML VIAL IVP ONE (12:26)
[2020-11-29] MEDS ORDERED: LACTATED RINGERS 1,000 ML IV SCH (12:26)
[2020-11-29] MEDS ORDERED: LIDOCAINE 1% (10MG/ML) FOR IV START INTRADERMA PRN (12:26)
[2020-11-29 13:03] LABS: Glucose,Whole Blood 206 mg/dL (75-99)
[2020-11-29] MEDS ORDERED: ePHEDrine SULFATE/0.9% NACL/PF 50 MG/5 ML SYRINGE IV ONE (14:25)
[2020-11-29] MEDS ORDERED: HYDROmorphone (PF) 1 MG/ML ONE (14:25)
[2020-11-29] MEDS ORDERED: fentaNYL (PF) 50 MCG/ML 2 ML AMP ONE (14:25)
[2020-11-29] MEDS ORDERED: LIDOCAINE 1% INJ 10MG/ML (20 ML MDV) ONE (14:25)
[2020-11-29] MEDS ORDERED: WATER FOR INJECTION, STERILE 10 ML VIAL IV ONE (14:25)
[2020-11-29] MEDS ORDERED: PROPOFOL 10 MG/ML 20 ML VIAL IV ONE (14:25)
[2020-11-29] MEDS ORDERED: SUCCINYLCHOLINE CHLORIDE 100 MG/5 ML SYR IV ONE (14:25)
[2020-11-29] MEDS ORDERED: IOPAMIDOL-370 50ML BTL MISCELLANE ONE ×2 (14:35→15:01)
[2020-11-29] MEDS ORDERED: LACTATED RINGERS 1,000 ML IV ONE (15:05)
[2020-11-29 16:48] VITALS: TEMP 96.8
--- NOTE | 2020-11-29 16:59 | FL ---
EXAMINATION TYPE: FL urography retrograde DATE OF EXAM: 11/29/2020 COMPARISON: NONE HISTORY: OB TECHNIQUE: Fluoroscopy. FINDINGS: Fluoroscopic guidance was provided during procedure performed by 52 seconds. IMPRESSION: As Above.
[2020-11-29 17:13] LABS: Glucose,Whole Blood 157 mg/dL (75-99)
[2020-11-29 17:35] VITALS: RESP 20
[2020-11-29 17:50] VITALS: BP 128/78; PULSE 70
--- NOTE | 2020-11-29 19:13 | P.OP ---
Date of Procedure: 11/29/20 Preoperative Diagnosis: Gross hematuria, left renal calculi Postoperative Diagnosis: Same Procedure(s) Performed: Cystoscopy, left retrograde pyelogram, left ureteroscopy with stone basketing, biopsies of left renal pelvis, left ureteral stent insertion Anesthesia: CONNIE Surgeon: Pablo Anand Estimated Blood Loss (ml): 30 IV fluids (ml): 1,200 Condition: stable Disposition: PACU Indications for Procedure: The patient is a 75-year-old white male who presented with left scrotal swelling since early April 2019. He denied dysuria, hematuria, and flank pain. He has a history of urolithiasis. Examination revealed left scrotal wall edema. Ultrasound suggested the possibility of a left inguinal hernia with intrascrotal extension of intra-abdominal contents. Therefore, a CT scan of the abdomen and pelvis was obtained. This confirmed the presence of a left inguinal hernia. However, also noted was mild to moderate left hydronephrosis due to a 16 mm left UPJ calculus. Additional left renal calculi were seen, the largest being an 8 mm upper pole renal calculus. There was extensive edema within the left renal sinus extending into the left retroperitoneum. He underwent left ureteroscopy with Holmium laser lithotripsy. He has experienced persistent stent left-sided abdominal pain associated with gross hematuria. A CT scan in September 2020 showed bilateral tiny nonobstructing renal calculi, with persistent moderate left hydronephrosis. He was treated for an E. coli UTI in early October 2020. The infection has resolved but he has persistent hematuria. Operative Findings: Bloody reflux of urine from left ureteral orifice. Tiny left renal calculi. Left renal pelvis mucosal changes suggestive of urothelial carcinoma. Description of Procedure: The patient was taken to the operating room and placed in the dorsolithotomy position, with legs supported in Patrice stirrups. The external genitalia was prepped and draped sterilely. The 30 lens was used to introduce the 21-[place] cystoscopic sheath through the urethra and into the bladder under direct vision. The prostatic urethra showed evidence of mild lateral lobe enlargement. The bladder was examined in its entirety. Both ureteral orifices were normal anatomic location and configuration. Clear urine effluxed from the right ureteral orifice, but bloody urine effluxed from the left ureteral orifice. No tumors or foreign bodies were seen. Using a 10-[place] cone-tipped catheter, a left retrograde pyelogram was performed. The course of the ureter appeared normal. There was no evidence of hydronephrosis. Slight irregularity of the upper pole infundibulum was noted, though ultimately filled with contrast and showed no filling defects. A 0.038 inch Glidewire was passed through the cystoscope. The left ureteral orifice was cannulated, and the Glidewire was advanced up to the renal pelvis. The cystoscope was removed, and an 11/13-[place] ureteral access catheter was passed over the wire, up to the proximal ureter. The flexible ureteroscope was then passed through the ureteral access catheter sheath and advanced under direct vision up to the left renal pelvis. Visualization was poor as there was blood within the renal pelvis. The renal pelvis was irrigated thoroughly, allowing visualization to be much improved. Several tiny calculus fragments were identified within a lower pole calyx. A 1.9-[place] nitinol basket was used to remove these. Each calyx was carefully examined. There was no active bleeding. However, within 2 upper pole calyces mucosal irregularity was noted. A small papillary lesion was seen adjacent to this, though it did not have an appearance typical of urothelial carcinoma. The abnormal calyces were thoroughly irrigated using 0.9 normal saline; washings were collected and sent for cytology. Next, a runoff forceps were used to obtain several biopsies of the papillary lesion in the area of abnormal mucosa. A 3-[place] Bugbee electrode was then used to fulgurate the biopsy sites. Excellent hemostasis was attained. Pullout ureteroscopy was performed. The ureter appeared unremarkable. The cystoscope was replaced into the bladder under direct vision. The Glidewire was advanced up to the left renal pelvis, and a 26 cm, 6-[place] double-J ureteral stent was placed over the wire. Proper stent positioning was verified fluoroscopically and endoscopically. The bladder was emptied and the cystoscope removed. The patient tolerated the procedure well and was taken to the recovery room in stable condition.
== END 2020-11-29 18:13 | disposition home or self-care (01) ==
LOC: OR 12:14
PROVIDERS: ATTEND Urology
DX: R31.0 Gross hematuria (principal); N20.0 Calculus of kidney; N13.30 Unspecified hydronephrosis; E11.9 Type 2 diabetes mellitus without complications; E78.5 Hyperlipidemia, unspecified; M19.90 Unspecified osteoarthritis, unspecified site; Z86.711 Personal history of pulmonary embolism; D68.51 Activated protein C resistance; I10 Essential (primary) hypertension; K21.9 Gastro-esophageal reflux disease without esophagitis; Z98.890 Other specified postprocedural states; Z83.3 Family history of diabetes mellitus; Z80.0 Family history of malignant neoplasm of digestive organs; Z79.01 Long term (current) use of anticoagulants; Z79.899 Other long term (current) drug therapy; Z79.84 Long term (current) use of oral hypoglycemic drugs; Z88.7 Allergy status to serum and vaccine
CPT/HCPCS: 88108; 88305; 74420; 52356; C2625; C1758; C1769; J0690; J2405; J2001; J3010; J1170; J0330; J2704; Q9967

== ENCOUNTER → 2021-01-05 | Outpatient (CLI) | payer MEDICARE | END | disposition home or self-care (01) | DX: N28.1 Cyst of kidney, acquired (principal); N40.0 Benign prostatic hyperplasia without lower urinary tract symptoms; N20.0 Calculus of kidney; R16.1 Splenomegaly, not elsewhere classified; R60.1 Generalized edema; E11.9 Type 2 diabetes mellitus without complications; R59.0 Localized enlarged lymph nodes; Z88.7 Allergy status to serum and vaccine | CPT/HCPCS: 82565; 84520; 74177; 36415; Q9967 ==

== ENCOUNTER → 2021-02-09 | Outpatient (CLI) | payer MEDICARE ==
[2021-02-09 19:18] LABS: Basophils # (A) 0.04 X 10*3/uL (0.00-0.10); Basophils % (A) 0.9 %; Eosinophils # (A) 0.14 X 10*3/uL (0.04-0.35); HCT 39.1 % (39.6-50.0); HGB 11.6 g/dL (13.0-17.0); Lymphocytes # (A) 1.78 X 10*3/uL (0.90-5.00); Lymphocytes % (A) 38.1 %; MCH 25.1 pg (27.0-32.0); MCHC 29.7 g/dL (32.0-37.0); MCV 84.6 fL (80.0-97.0); Mean Platelet Volume 11.3 fL (9.5-12.2); Monocytes # (A) 0.41 X 10*3/uL (0.20-1.00); Monocytes % (A) 8.8 %; Neutrophils # (A) 2.29 X 10*3/uL (1.80-7.70); Platelet Count 115 X 10*3/uL (140-440); RBC 4.62 X 10*6/uL (4.40-5.60); RDW 15.2 % (11.5-14.5); WBC 4.67 X 10*3/uL (4.50-10.00)
[2021-02-09 23:05] LABS: Hemoglobin A1C 9.6 % (4.0-6.0)
[2021-02-10 03:23] LABS: African American GFR (CKD) 84.4 (60.0-200.0); Albumin 4.2 g/dL (3.80-4.90); Albumin/Globulin Ratio 1.35 (1.60-3.17); Anion Gap 10.6 mmol/L (4.00-12.00); Calcium 9.2 mg/dL (8.7-10.3); Carbon Dioxide 22.4 mmol/L (21.6-31.8); Chol/HDL Ratio 3.23; Globulin 3.1 g/dL (1.6-3.3); LDL Cholesterol,Calculated 23.2 mg/dL (0.0-131.0); Non-African American GFR(CKD) 72.8 (60.0-200.0); Potassium 4.6 mmol/L (3.5-5.5); Total Bilirubin 0.6 mg/dL (0.2-1.2); Total Protein 7.3 g/dL (6.2-8.2); VLDL Calculation 25.8 mg/dL (5.00-40.00)
[2021-02-10 06:14] LABS: Urine Creatinine 48.1 mg/dL
== END | disposition home or self-care (01) ==
LOC: LABWHC1 11:22
PROVIDERS: ATTEND Internal Medicine
DX: E11.9 Type 2 diabetes mellitus without complications (principal); I10 Essential (primary) hypertension; E78.2 Mixed hyperlipidemia
CPT/HCPCS: 36415; 80053; 80061; 82043; 82570; 83036; 83519; 84443; 85025; 86337

== ENCOUNTER → 2021-03-09 | Outpatient (CLI) | payer OTHER ==
--- NOTE | 2021-03-09 10:12 | XR ---
EXAMINATION TYPE: XR femur RT DATE OF EXAM: 03/09/2021 CLINICAL HISTORY: Pain TECHNIQUE: Two views of the right femur are obtained. COMPARISON: None FINDINGS: There is no acute fracture or dislocation seen in the right femur. There is moderate to se parth narrowing of the hip joint. Diffuse osteopenia. Hypertrophic change of the abdomen. Vascular troy cification noted. Extensive postsurgical changes involving the distal femur and patella. Arthropathy involving the knee joint. IMPRESSION: 1. 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 2. Postsurgical change. Severe arthropathy of the remaining portion of the knee joint
--- NOTE | 2021-03-09 10:14 | XR ---
EXAMINATION TYPE: XR knee complete RT DATE OF EXAM: 03/09/2021 COMPARISON: NONE HISTORY: Pain TECHNIQUE: Three views are submitted. FINDINGS: Extensive postsurgical changes involving the distal femur and the patella. There is a severe arthropa thy of the knee joint. Marked deformity of the distal femur compatible with previous surgery and susp ected trauma. There are couple of orthopedic screws seen extending through the distal femur which federico ear to be separate from the orthopedic plate and should be correlated clinically. One of which extend s into the upper margin of the lateral compartment of the knee joint. Chondrocalcinosis noted. IMPRESSION: 1. Postsurgical change with severe arthropathy.
== END | disposition home or self-care (01) ==
LOC: RADXRMAIN 09:38
PROVIDERS: ATTEND Internal Medicine
DX: M12.861 Other specific arthropathies, not elsewhere classified, right knee (principal); M79.651 Pain in right thigh

== ENCOUNTER → 2022-06-25 | Outpatient (CLI) | payer MEDICARE ==
--- NOTE | 2022-06-25 18:38 | US ---
EXAMINATION TYPE: US thyroid st tissue head/neck DATE OF EXAM: 06/25/2022 COMPARISON: NONE CLINICAL HISTORY: R79.9 ABN FINDING OF BLOOD CHEMISTRY. GLAND SIZE: Right Lobe: 8.9 x 2.7 x 3.6 cm Overall Parenchyma: Left Lobe: 6.5 x 3.1 x 2.6 cm Overall Parenchyma: Isthmus Thickness: 0.6 cm NODULES RIGHT: # of nodules measured on right: 2 1. 2.0 X 1.5 x 1.6 cm, upper, TIRADS Score: 4 TIRADS Category 4: Moderately Suspicious Composition: Solid or almost completely solid (2 points). Echogenicity: Hyperechoic or isoechoic (1 point). Shape: Wider than tall (0 points). Margin: Smooth (0 points). Echogenic foci: Macrocalcifications (1 point) Recommendation: If >1.5cm: FNA; If >1cm: Follow up at 1,3,5 years 2. 1.1 X 1.0 x 1.2 cm, lower, cystic with calcified wall. TIRADS Score: 0 TIRADS Category 1: Benign Composition: Cystic or almost completely cystic (0 points). Recommendation: No FNA LEFT: # of nodules measured on left: 2 1. 0.7 X 0.5 x 0.8 cm, upper, TIRADS Score: 4 TIRADS Category 4: Moderately Suspicious Composition: Solid or almost completely solid (2 points). Echogenicity: Hypoechoic (2 points). Shape: Wider than tall (0 points). Margin: Smooth (0 points). Echogenic foci: None or large comet-tail artifacts (0 points) Recommendation: If >1.5cm: FNA; If >1cm: Follow up at 1,3,5 years 2. 0.7 X 0.5 x 0.7 cm, lower, TIRADS Score: 4 TIRADS Category 4: Moderately Suspicious Composition: Solid or almost completely solid (2 points). Echogenicity: Hypoechoic (2 points). Shape: Wider than tall (0 points). Margin: Smooth (0 points). Echogenic foci: None or large comet-tail artifacts (0 points) Recommendation: If >1.5cm: FNA; If >1cm: Follow up at 1,3,5 years ISTHMUS: # of nodules measured in the isthmus: 0 Enlarged thyroid with inferior tissue extending below clavicle. Difficult and limited study. Bilateral neck scanned, no evidence of lymphadenopathy. IMPRESSION: Bilateral thyroid gland nodules. In the right measuring up to 2.0 cm it meets criteria for fine-needl e aspiration performed. 2017 ACR TI-RADS LEVEL: TR-RADS 4 - Moderately Suspicious: Follow if > 1 cm, FNA if > 1.5 cm *Highest TI-RADS level nodule reported
== END | disposition home or self-care (01) ==
LOC: RADUSWWP 10:53
PROVIDERS: ATTEND Internal Medicine
DX: R79.9 Abnormal finding of blood chemistry, unspecified (principal); E04.2 Nontoxic multinodular goiter
CPT/HCPCS: 76536

== ENCOUNTER → 2023-02-07 | Outpatient (CLI) | payer MEDICARE ==
[2023-02-07 08:42] LABS: African American GFR (CKD) 68 (>60 ml/min/1.73 sqM); Blood Urea Nitrogen 29 mg/dL (9-20); Non-African American GFR(CKD) 59 (>60 ml/min/1.73 sqM)
--- NOTE | 2023-02-07 13:16 | CT ---
EXAMINATION TYPE: CT urogram wo/w con DATE OF EXAM: 02/07/2023 COMPARISON: 01/05/2021 HISTORY: 77-year-old male R31.9, unspecified hematuria TECHNIQUE: Contiguous axial scanning of the abdomen and pelvis performed without and with IV Contrast , patient injected with 80 mL of Isovue 300. Delayed images through the kidneys and bladder were obta ined. Coronal/sagittal reconstructions performed.. Reconstructions generated on a dedicated [employer] workstation. CT DLP: 5671.50 mGycm Automated exposure control for dose reduction was used. FINDINGS: Heart is normal size without pericardial effusion. Lung bases clear without pleural effusion. Small hiatal hernia. No focal lesion or biliary ductal dilatation. Portal venous system is patent. 2.2 cm calculus at the neck of the gallbladder. No abnormal gallbladder distention to suggest that th e stone is obstructing. Mild thickening of the adrenal glands without discrete nodularity. Bilateral renal calculi measuring up to 4 mm. One is present on the right and there are 3 on the left . Innumerable bilateral renal cysts are demonstrated including parapelvic cysts measuring up to 2.9 cm. Renal cortical cysts measuring up to 9.9 cm. Possible 2.8 cm solid cortical lesion lower pole right kidney measuring 2.8 cm, not significantly emma nged from 2.7 cm and 202 suggesting a benign etiology. No abnormal filling defect within the bilateral renal collecting systems which are mildly distended, more so than 01/05/2021. New from that time is extensive soft tissue infiltration in the retroperitoneal space with encasement of the distal abdominal aorta and common iliac arteries. Only the proximal most portion of the urete r is visualized. Only limited short segments of the mid ureter are seen. Most of the mid and distal u reter are entirely nonopacified and not assessed and course through the abnormal retroperitoneal soft tissue. Moderate atherosclerotic calcifications infrarenal abdominal aorta and common iliac arteries. Normal appendix. No dilated small bowel, free fluid, or free air. Mild burden. No pericolonic inflammatory change. There is moderate circumferential bladder wall thickening. Prostate gland is enlarged at 6.4 cm wide and should be correlated with PSA values. Multiple pelvic p hleboliths. No abnormal fluid collection in the pelvis. Some soft tissue thickening continues down th e right iliac chain. No lopez mesenteric or retroperitoneal lymphadenopathy seen. Bones: DISH throughout the lower thoracic and upper to mid lumbar spine. IMPRESSION: 1. A FEW BILATERAL RENAL CALCULI MEASURING UP TO 4 MM. 2. INNUMERABLE BILATERAL RENAL CYSTS, LARGEST MEASURING UP TO 9.9 CM. 3. MILD BILATERAL PELVICALIECTASIS. ONLY THE RENAL COLLECTING SYSTEMS AND UPPER MOST URETERS ARE OPAC IFIED. MAJORITY OF THE URETERS REMAIN NONOPACIFIED AND ARE INADEQUATELY ASSESSED. THE BLADDER DOES NO T OPACIFY . CORRELATE FOR EITHER LOW-GRADE BILATERAL URETERAL OBSTRUCTION AND/OR CHRONIC KIDNEY DISEA SE WITH DELAYED EXCRETION. 4. THE URETERS COURSE THROUGH NEW RETROPERITONEAL SOFT TISSUE THICKENING AND THIS MAY CONTRIBUTE TO T HE MILD RELATIVE OBSTRUCTION. THE SOFT TISSUE ENCASES THE DISTAL ABDOMINAL AORTA AND COMMON ILIAC ART ERIES AND EXTENDS ALONG THE RIGHT ILIAC CHAIN. RETROPERITONEAL FIBROSIS IS FAVORED. NEOPLASTIC ETIOLO GY SUCH LYMPHOMA IS A CONSIDERATION. CONSIDER CONTRAST ENHANCED MRI TO FURTHER CHARACTERIZE THE SO FT TISSUE. 5. SMALL HIATAL HERNIA, CHOLELITHIASIS, AND PROSTATOMEGALY AT 6.4 CM WIDE. CORRELATE WITH PSA VALUES.
== END | disposition home or self-care (01) ==
LOC: RADCTMAIN 08:00
PROVIDERS: ATTEND Internal Medicine
DX: K80.20 Calculus of gallbladder without cholecystitis without obstruction (principal); N20.0 Calculus of kidney; N28.1 Cyst of kidney, acquired; K44.9 Diaphragmatic hernia without obstruction or gangrene; N40.0 Benign prostatic hyperplasia without lower urinary tract symptoms; N28.89 Other specified disorders of kidney and ureter; R31.9 Hematuria, unspecified; R79.9 Abnormal finding of blood chemistry, unspecified
CPT/HCPCS: 82565; 84520; 74178; 36415; 74400; Q9967

== ENCOUNTER → 2023-04-03 | Outpatient (CLI) | payer MEDICARE ==
--- NOTE | 2023-04-04 14:05 | MR ---
EXAMINATION TYPE: MR abdomen wo/w con DATE OF EXAM: 04/03/2023 9:56 AM CLINICAL INDICATION:Male, 77 years old with history of N28.1 N28.0; PHH, Blood in urine, abnormal CT. COMPARISON: CT scan abdomen from 02/07/2023. TECHNIQUE: Multiplanar multi-sequence imaging was performed without contrast. Post contrast imaging was performed. Post IV contrast subtraction images were also submitted for review. IV Contrast: 11 cc Gadavist FINDINGS: LOWER CHEST: No gross irregularity. ABDOMEN Liver: No evidence for hepatic steatosis or cirrhosis. Gallbladder and Bile ducts: There is thought to be a large calcified gallstone within the gallbladder lumen as visualized on prior CT. No evidence for ductal dilation, or biliary stricture or evidence o f choledocholithiasis. The gallbladder is within normal limits. Pancreas: No ductal dilation. No evidence for solid mass. Spleen: Normal for size. Adrenal glands: Unremarkable. Kidneys: Right: Multiple renal cysts bilaterally high T2 signal. At least one of the lower T2 signal present. High T2 renal signal cyst measuring up to 5.5 cm. Inferior pole renal cyst which is low T1 signal measures up to 3.0 cm. And is intrinsic high T1 signa l. Additional scattered intrinsic high T1 signal cysts are present. No suspicious solid masses identi fied. Renal calculi are less well appreciated on MRI. No evidence of obstructive uropathy. Left: Multiple high T2 signal renal cyst measuring up to 5.4 cm. There is at least one low T2 signal cyst measuring up to 16 mm present which demonstrates intrinsic high T1 signal. No suspicious solid m asses identified. Renal calculi are less well appreciated on MRI. No evidence of obstructive uropathy . Stomach and Bowel: No evidence for bowel wall thickening or evidence for obstruction.. Peritoneum: No evidence of pneumoperitoneum or free fluid. Retroperitoneal soft tissue remains prese nt which extends near the ureters. There is thought to be mild postcontrast enhancement through this soft tissue. Vasculature: No aortic aneurysm. Musculoskeletal: The osseous structures appear intact. Lymph Nodes: No gross evidence for lymphadenopathy. Abdominal wall: Unremarkable. IMPRESSION: 1. Bilateral Bosniak type I and type II colonic renal cysts, no suspicious solid renal neoplasm. No obstructive uropathy. 2. Findings suggestive of retroperitoneal fibrosis. Given findings on CT the ureters are in close ap proximation with this fibrotic soft tissue and could contribute to some degree of obstruction. 3. Poor visualization of the renal calculi seen on prior CT due to MRI technique. 4. Cholelithiasis.
== END | disposition home or self-care (01) ==
LOC: RADMRIMAIN 08:40
PROVIDERS: ATTEND Internal Medicine
DX: N20.0 Calculus of kidney (principal); N28.1 Cyst of kidney, acquired; K80.20 Calculus of gallbladder without cholecystitis without obstruction; N28.0 Ischemia and infarction of kidney
CPT/HCPCS: 74183; A9585

== ENCOUNTER → 2023-04-05 | Outpatient (CLI) | payer MEDICARE ==
--- NOTE | 2023-04-06 00:23 | MR ---
EXAMINATION TYPE: MR pelvis wo/w con DATE OF EXAM: 04/05/2023 3:52 PM CLINICAL INDICATION:Male, 77 years old with history of N28.1 CYST OF KIDNEY, N20.0 CALCULUS OF KIDNEY , Renal cyst, renal stone. COMPARISON: MRI abdomen 04/03/2023 TECHNIQUE: Triplane multisequence imaging was performed of the pelvis. IV Contrast: 11 cc Gadavist FINDINGS: Please see dedicated MRI abdomen 04/03/2023. Findings regarding the kidneys. Reproductive: Prostate: Enlarged measuring up to 6.2 cm in transverse dimension. Seminal vesicle's: Unremarkable. Testes: Not in the [id number]. Bladder: Unremarkable. Bowel: Unremarkable as visualized. Peritoneum: Retroperitoneal soft tissue remains present which extends near the ureters. There is thou ght to be mild postcontrast enhancement through this soft tissue. Lymph nodes: No evidence of adenopathy. Vasculature: Unremarkable. Musculoskeletal: Bone marrow signal is within normal signal intensity. Abdominal wall/soft tissues: Fatty changes to the inguinal canals. There is an enhancing tract extend ing from the surface towards the sacrum. Series 9 on image 29 IMPRESSION: 1. Findings suggestive of retroperitoneal fibrosis. Given findings on CT the ureters are in close ap proximation with this fibrotic soft tissue and could contribute to some degree of obstruction. 2. Enhancing soft tissue tract extending from the sacrum to the skin surface. Correlate with physica l exam. 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 3. Prostatomegaly, correlation with serum PSA. 4. For findings related to the kidneys, please see the MRI abdomen 04/03/2023.
== END | disposition home or self-care (01) ==
LOC: RADMRIMAIN 14:35
PROVIDERS: ATTEND Internal Medicine
DX: N28.1 Cyst of kidney, acquired (principal); N20.0 Calculus of kidney; N40.2 Nodular prostate without lower urinary tract symptoms
CPT/HCPCS: 72197; A9585

== ENCOUNTER → 2023-09-22 | Outpatient (CLI) | payer MEDICARE ==
--- NOTE | 2023-09-22 23:15 | US ---
EXAMINATION TYPE: US kidneys/renal and bladder DATE OF EXAM: 09/22/2023 COMPARISON: Multiple MRIs, US, and CTs. CLINICAL INDICATION: , 77 years old with history of N13.30 UNSPECIFIED HYDRONEPHROSIS; Patient denies any signs or symptoms or relevant history EXAM MEASUREMENTS: Right Kidney: 13.1 x 6.3 x 5.9 Left Kidney: 14.9 x 5.5 x 6.0 Post Void Residual Volume: NAmL Difficult exam and limited visualization due to patient body habitus Right Kidney: Multiple cysts redemonstrated Left Kidney: Multiple cysts redemonstrated Bladder: wnl Bilateral Jets seen: Right jet not seen Normal Post Void Residual: NA The cysts as visualized appears simple. IMPRESSION: 1. No suspicious changes to suggest hydronephrosis. 2. Multiple bilateral renal cysts. 3. Limited exam due to body habitus.
== END | disposition home or self-care (01) ==
LOC: RADUSWWP 12:11
PROVIDERS: ATTEND Urology
DX: N28.1 Cyst of kidney, acquired (principal)
CPT/HCPCS: 76770